=== PATIENT | female | born 1985 | race Two or more races ===

== ENCOUNTER 2023-05-09 19:10 | Outpatient (REF) | payer OTHER, SELFPAY ==
[2023-05-13 13:07] LABS: Age Gdln ACOG Testing Note (.); HPV Aptima Negative (Negative); IGP, Aptima HPV, rfx 16/18,45 Note (.)
== END 2023-05-09 19:11 | disposition home or self-care (01) ==
LOC: LAB 19:10
PROVIDERS: Visit Provider Obstetrics & Gynecology
DX: Z01.419 Encounter for gynecological examination (general) (routine) without abnormal findings (principal)
CPT/HCPCS: 87624; G0145

== ENCOUNTER 2024-12-10 07:50 | Outpatient (REF) | payer BC, SELFPAY ==
--- OUTSIDE RECORDS SUMMARY | 2024-12-10 13:00 | XMS_ITS | Encounter Summary ---
Author Organization [facility] Address [address] [place] [address] Care Team Providers Care Stone Setter Name Role Phone Severiano Barbour MD Primary Care Provider Reason for Visit * Reason Comments Well Women Visit Encounter Details Date Type Department Care Team (Late st Contact Info) Description 12/10/2024 1:00 PM EDT Office Visit [facility] [address] [place] [address] Dayana Middleotn NP [address] [place] [address] Well woman exam with routine gynecological exam; Encounter for screening mammogram for malignant neoplasm of breast Social History Tobacco Use Types Packs/Day Years Used Date Smoking Tobacco: Never Assessed Comments No Sex and Gender Information Value Date Recorded Sex Assigned at Not on file Legal Sex Female 11:47 PM EDT Gender Identity Not on file Sexual Orientation Not on file documented as of this encounter Last Filed Vital Signs Vital Sign Reading Time Taken Comments Blood Pressure - - Pulse - - Temperature - - Respiratory Rate - - Oxygen Saturation - - Inhaled Oxygen Concentration - - Weight 68.3 kg (150 lb 8 oz) 12/10/2024 1:02 PM EDT Height - - Body Mass Index - - documented in this encounter Progress Notes * Dayana Middleton NP - 12/10/2024 1:00 PM EDT Reason for Appointment: Patient ID: Rama Larson is a 39 y.o. female who presents for Well Women Visit Patient presents today for Annual Exam. MEDICATIONS Current Outpatient Medications Medication Instructions buPROPion (WELLBUTRIN) 75 mg, Oral, 2 times daily lisinopril-hydroCHLOROthiazide 10-12.5 MG tablet 1 tablet, Oral, Every morning phentermine (ADIPEX-P) 37.5 mg, Daily before breakfast ALLERGIES Allergies Allergen Reactions Phenergan [Promethazine] Other muscle PROBLEMS Active Ambulatory Problems Diagnosis Date Noted No Active Ambulatory Problems Resolved Ambulatory Problems Diagnosis Date Noted No Resolved Ambulatory Problems Past Medical History: Diagnosis Date Asthma (HCC) Dyspareunia, female Endometriosis Heart palpitations High blood pressure History of endometrial ablation Hx of ovarian cyst Menorrhagia PCOS (polycystic ovarian syndrome) Pelvic pain HISTORY PAST MEDICAL HISTORY SOCIAL HISTORY Past Medical History: Diagnosis Date Asthma (HCC) Dyspareunia, female Endometriosis Heart palpitations High blood pressure History of endometrial ablation Hx of ovarian cyst Menorrhagia PCOS (polycystic ovarian syndrome) Pelvic pain Social History Tobacco Use Smoking status: Not on file Smokeless tobacco: Not on file Substance Use Topics Alcohol use: Not on file Drug use: Not on file FAMILY HISTORY Family History Problem Relation Name Age of Onset Diabetes Mother Hypertension Mother Diabetes Maternal Grandmother Cancer Maternal Grandmother SURGICAL HISTORY Past Surgical History: Procedure Laterality Date ENDOMETRIAL ABLATION PELVIC LAPAROSCOPY TUBAL LIGATION REVIEW OF SYSTEMS Review of Systems: Review of Systems Constitutional: Negative. HENT: Negative. Eyes: Negative. Respiratory: Negative. Cardiovascular: Negative. Gastrointestinal: Negative. Genitourinary: Negative. Musculoskeletal: Negative. Skin: Negative. Neurological: Negative. All other systems reviewed and are negative. Hematological: Negative. Endocrine: Negative. Allergic/Immunologic: Negative. OBJECTIVE Objective: Physical Exam Constitutional: Appearance: Normal appearance. She is well-developed. Cardiovascular: Rate and Rhythm: Normal rate and regular rhythm. Pulmonary: Effort: Pulmonary effort is normal. Breath sounds: Normal breath sounds. Abdominal: General: Bowel sounds are normal. There is no distension. Palpations: Abdomen is soft. Tenderness: There is no abdominal tenderness. There is no guarding or rebound. Musculoskeletal: General: No swelling. Normal range of motion. Right lower leg: No edema. Left lower leg: No edema. Neurological: Mental Status: She is alert and oriented to person, place, and time. Skin: General: Skin is warm and dry. Psychiatric: Mood and Affect: Mood normal. Behavior: Behavior normal. Vitals and nursing note reviewed. Exam conducted with a thread spinner present. Vitals: There is no height or weight on file to calculate BMI. BP: No LMP recorded. Patient has had an ablation. ASSESSMENT & PLAN ICD-10-CM 1. Well woman exam with routine gynecological exam Z01.419 2. Encounter for screening mammogram for malignant neoplasm of breast Z12.31 Annual Exam: Patient presents today for an annual exam. Patient states she is doing well and has no complaints. Pap was obtained without difficulty. Orders Placed This Encounter Procedures Bilateral screening mammogram Follow Up: Patient is to return in one year for annual unless needed otherwise. Documented by Dayana Middleton NP on behalf of: Dayana Middleton NP documented in this encounter Plan of Treatment Scheduled Orders Name Type Priority Associated Diagnoses Orde r Schedule Bilateral screening mammogram Imaging Routine Encounter for screening mammogram for malignant neoplasm of breast Expected: 12/10/2024 (Approximate), Expires: 02/10/2026 THIN PREP TIS PAP AND HR HPV DNA Pathology and Cytology Routine Well woman exam with routine gynecological exam Ordered: 12/10/2024 documented as of this encounter Procedures Procedure Name Priority Date/Time Associated Diagnosis Comments PAP SMEAR Routine 05/09/2023 12:00 AM EST documented in this encounter Results * Pap Smear (05/09/2023 12:00 AM EST) Swab Cervical swab / Unknown us Yvan Rachael DO LAB CYTOLOGY ORDERABLES Final Re sult EXTERNAL LAB documented in this encounter Visit Diagnoses Diagnosis Well woman exam with routine gynecological exam Routine gynecological examination Encounter for screening mammogram for malignant neoplasm of breast documented in this encounter Care Teams Stone Setter Relationship Specialty Start Date End Date Severiano Barbour MD PCP - General Family Medicine 05/09/23 documented as of this encounter
--- OUTSIDE RECORDS SUMMARY | 2024-12-11 07:50 | XMS_ITS | CCD ---
Author Organization [facility] Care Team Providers Care Street Light Repairer Name Role Phone DR KIMANI CANO Admitting Unavailable RACHAEL, DR HARMAN Attending Unavailable REQUEST, NONE LISTED Primary Care Unavaila ble RACHAEL, DR HARMAN Consulting Unavailable KIKE MIRELES Consulting Unavailable RACHAEL, DR HARMAN Admitting Unavailable RACHAEL, DR HARMAN Attending Unavailable MISC, DR MARTINS Primary Care Unavailable RACHAEL, DR HARMAN Admitting Unavailable RACHAEL, DR HARMAN Attending Unavailable MISC, DR MARTINS Primary Care Unavailable RACHAEL, DR HARMAN Admitting Unavailable RACHAEL, DR HARMAN Attending Unavailable REQUEST, DR NONE LISTED Primary Care Unavaila ble RACHAEL, DR HARMAN Consulting Unavailable Cristine, Nasreen Unavailable KIMANI CANO Attending Unavailable ALAMINA, FOLUSO Referring Unavailable ALAMINA, FOLUSO Primary Care Unavailable ALAMINA, FOLUSO Referring Unavailable ALAMINA, FOLUSO Primary Care Unavailable ALAMINA, FOLUSO Referring Unavailable ALAMINA, FOLUSO Primary Care Unavailable ALAMINA, FOLUSO Referring Unavailable ALAMINA, FOLUSO Primary Care Unavailable Alamina DELIVERY HELPER-SURVEY OPERATIONS DIRECTOR, Foluso Primary Care Provider Alamina DELIVERY HELPER-MELISSA, Foluso Primary Care Provider Km [facility] Foluso Primary Care Provider Allergies Allergy Classification Reported Allergen(s) Allergy Type Date of Onset Reaction(s) Facility (2 sources) Levamisole Drug Allergy 09-25-2016 [facility] Repository (3 sources) peanut allergenic extract; Translations: [PEANUT] Drug Allergy 09-25-2016 [facility] Repository (2 sources) Carlton nut Drug allergy (disorder) 02-23-2017 [facility] Repository (20 sources) Promethazine; Translations: [PROMETHAZINE] Drug Allergy 03-27-2016 Other [facility] Repository (15 sources) peanut allergenic extract Drug Allergy 07-16-2019 [facility] Medications Current Medications Medication Drug Class(es) Dates Sig (Normalized) Sig (Original) [id number] 200 actuat albuterol 0.09 mg/actuat metered dose inhaler (15 sources) beta2-Adrenergic Agonist Start: 07-19-2023 take 2 puff(s) by inhalation every six hours as needed for wheezing albuterol (PROVENTIL HFA;VENTOLIN HFA) 90 mcg/actuation inhaler Indications: SOB (shortness of breath) Inhale 2 puffs every 6 (six) hours as needed for wheezing. 18 g 11 07/19/2023 Active Albuterol Sulfat e HFA Not-Taking amoxicillin 875 mg / clavulanate 125 mg oral tablet (1 source) Penicillin-class Antibacterial Start: 03-28-2023 take 1 tablet by mouth every twelve hours Amoxicillin-Pot Clavulanate 875-125 MG 1 tablet Orally every 12 hrs for 10 day(s) Mar, Active Biotin (1 source) Biotin Active buPROPion hydrochloride 75 mg oral tablet (20 sources) Aminoketone Start: 04-16-2023 End: 05-26-2024 take 1 tablet by mouth in the morning buPROPion (Wellbutrin) 75 MG tablet Take 75 mg by mouth in the morning and 75 mg before bedtime. 04/16/2023 Active take 2 tablets by mo ut every twelve hours buPROPion HCl 75 MG 2 tablets Orally Twi ce a day Active ergocalciferol 1.25 mg oral capsule (18 sources) Provitamin D2 Compound Start: 10-09-2022 End: 12-12-2023 take 1 capsule by mouth every week ergocalciferol (DRISDOL) 1,250 mcg (50,000 unit) capsule Indications: Vitamin D deficiency TAKE 1 CAPSULE BY MOUTH ONCE WEEKLY 4 capsule 1 12/12/2023 Active hydroCHLOROthiazide 12.5 mg oral capsule (16 sources) Thiazide Diuretic Start: 10-31-2023 End: 05-26-2024 take 1 capsule by mouth once daily in the morning hydroCHLOROthiazide (MICROZIDE) 12.5 mg capsule Take 1 capsule (12.5 mg total) by mouth every morning. 90 capsule 1 05/27/2024 Active hydroCHLOROthiazide 12.5 mg / lisinopril 10 mg oral tablet (4 sources) Thiazide Diuretic, Angiotensin Converting Enzyme Inhibitor Start: 2023 take 1 tablet by mouth in the morning lisinopril-hydroCHLORO thiazide 10-12.5 MG tablet Take 1 tablet by mouth in the morning. 2023 Active Start: 2023 End: 06-20-2023 take 10-12.5 mg by mouth once in the morning lisinopril-hydroCHLOROthiazide (PRINZIDE,ZESTORETIC) 10-12.5 mg per tablet Indications: Primary hypertension TAKE 1 TABLET BY MOUTH EVERY DAY IN THE MORNING 90 tablet 1 2023 06/20/2023 Discontinued lisinopril 5 mg oral tablet (16 sources) Angiotensin Converting Enzyme Inhibitor Start: 06-20-2023 End: 12-12-2023 take 1 tablet by mouth in the morning lisinopriL (PRINIVIL,ZESTRIL) 5 mg tablet Indications: Primary hypertension Take 1 tablet (5 mg total) by mouth in the morning. 30 tablet 11 12/12/2023 Active nystatin 100 unt/mg topical powder (16 sources) Polyene Antifungal Start: 01-17-2023 End: 12-12-2023 nystatin (MYCOSTATIN) powder Indications: Yeast infection Apply 1 Application topically in the morning and 1 Application at noon and 1 Application in the evening and 1 Application before bedtime. 60 g 12/12/2023 Active omeprazole 20 mg delayed release oral capsule (16 sources) Proton Pump Inhibitor Start: 01-03-2023 take 1 capsule by mouth in the morning omeprazole (PriLOSEC) 20 mg capsule Indications: Gastroesophageal reflux disease without esophagitis TAKE 1 CAPSULE (20 MG TOTAL) BY MOUTH IN THE MORNING 90 capsule 01/03/2023 Active phentermine hydrochloride 37.5 mg oral tablet (16 sources) Sympathomimetic Amine Anorectic Start: 11-10-2023 End: 10-22-2024 take 30-30.9 tablets by mouth once daily before breakfast phentermine (ADIPEX-P) 37.5 mg tablet Indications: Well adult exam , Class 1 obesity due to excess calories with serious comorbidity and body mass index (BMI) of 30.0 to 30.9 in adult Take 1 tablet (37.5 mg total) by mouth every morning before breakfast. 30 tablet 10/22/2024 Active predniSONE 20 mg oral tablet (1 source) Start: 03-28-2023 take 1 tablet by mouth every twelve hours predniSONE 20 MG 1 tablet Orally bid for 5 day(s) Mar, Active Completed/Discontinued Medications Medication Drug Class(es) Dates Sig (Normalized) Sig (Original) dicyclomine hydrochloride 20 mg oral tablet (1 source) Anticholinergic take 1 tablet by mouth every eight hours Dicyclomine HCl 20 MG 1 tablet Orally TID Not-Taking 24 hr phentermine 7.5 mg / topiramate 46 mg extended release oral capsule (10 sources) Sympathomimetic Amine Anorectic Start: 03-14-2023 End: 12-10-2024 take 1 capsule by mouth every twenty-four hours in the morning phentermine-topir amate (QSYMIA) 3.75-23 mg capsule, ER multiphase 24 hr Indications: BMI 26.0-26.9,adult , Primary hypertension , Weight loss due to medication Take 1 each by mouth in the morning. 14 capsule 0 03/14/2023 06/20/2023 Discontinued Start: 03-14-2023 End: 11-06-2023 take 1 capsule by mouth every twenty-four hours in the morning phentermine-topiramate (QSYMIA) 7.5-46 mg capsule, ER multiphase 24 hr Indications: BMI 27.0-27.9,adult , Primary hypertension , Weight loss due to medication Take 1 capsule by mouth in the morning. 30 capsule 2 06/20/2023 11/06/2023 Discontinued microencapsulated potassium chloride 10 meq extended release oral tablet (2 sources) Start: 10-11-2022 End: 10-31-2023 take 1 tablet by mouth once daily in the morning KLOR-CON M10 10 mEq CR tablet Indications: Hypokalemia TAKE 1 TABLET BY MOUTH EVERY DAY IN THE MORNING 30 tablet 1 10/11/2022 10/31/2023 Discontinued sucralfate 1000 mg oral tablet (1 source) Aluminum Complex take 1 tablet by mouth every eight hours Carafate 1 GM 1 TABLET Orally TID Not-Taking Problems Active Problems Problem Classification Problem Date Documented Date Episodic/Chronic Abdominal pain (1 source) Epigastric pain; Translations: [Epigastric pain] Episodic Anxiety disorders (4 sources) Anxiety; Translations: [Anxiety disorder, unspecified] 05-26-2024 Chronic Asthma (1 source) Unspecified asthma, uncomplicated; Translations: [UNSPECIFIED ASTHMA UNCOMPLICATED] Onset: 01-19-2022 Chronic Endometriosis (16 sources) Endometriosis, unspecified; Translations: [Endometriosis (clinical)] Onset: 07-16-2019 07-16-2019 Chronic Esophageal disorders (15 sources) Gastroesophageal reflux disease without esophagitis; Translations: [Gastro-esophageal reflux disease without esophagitis] Onset: 07-16-2019 07-16-2019 Chronic Essential hypertension (4 sources) Essential hypertension; Translations: [Essential (primary) hypertension] 05-26-2024 Chronic Genitourinary symptoms and ill-defined conditions (1 source) Increased frequency of urination; Translations: [Frequency of micturition] 10-22-2024 Episodic Menstrual disorders (4 sources) Excessive and frequent menstruation with regular cycle; Translations: [EXCESS FREQ MENSTRUATION W/REG CYCL] Onset: 01-13-2022 Chronic Nausea and vomiting (1 source) Nausea and vomiting; Translations: [Nausea with vomiting, unspecified] Episodic Nonmalignant breast conditions (5 sources) Unspecified lump in the right breast, unspecified quadrant; Translations: [Solitary cyst of right breast] Onset: 12-25-2023 11-02-2023 Episodic Nutritional deficiencies (4 sources) Vitamin D deficiency, unspecified; Translations: [Vitamin D deficiency] Onset: 11-01-2023 06-20-2023 Chronic Other endocrine disorders (1 source) Polycystic ovarian syndrome; Translations: [POLYCYSTIC OVARIAN SYNDROME] Onset: 01-19-2022 Chronic Other endocrine disorders (15 sources) Polycystic ovary syndrome; Translations: [Polycystic ovarian syndrome] Onset: 07-16-2019 07-16-2019 Chronic Other female genital disorders (1 source) Unspecified dyspareunia; Translations: [UNSPECIFIED DYSPAREUNIA] Onset: 01-19-2022 Chronic Other nutritional; endocrine; and metabolic disorders (5 sources) Obesity caused by energy imbalance; Translations: [Other obesity due to excess calories] 12-12-2023 Chronic Other screening for suspected conditions (not mental disorders or infectious disease) (4 sources) Patient encounter status; Translations: [Encounter for screening mammogram for malignant neoplasm of breast] 11-02-2023 Episodic Other upper respiratory infections (1 source) Acute sinusitis, unspecified Episodic Screening and history of mental health and substance abuse codes (1 source) Personal history of nicotine dependence; Translations: [PERSONAL HISTORY OF NICOTINE DEPEND] Onset: 01-19-2022 Episodic Unclassified (1 source) CONTACT W/AND (SUSP) EXPOS COVID-19; Translations: [CONTACT W/AND (SUSP) EXPOS COVID-19] Onset: 01-12-2022 Past or Other Problems Problem Classification Problem Date Documented Da te Episodic/Chronic Diabetes mellitus without complication (1 source) Hyperglycemia; Translations: [Impaired fasting glucose] 12-12-2023 Episodic Mood disorders (15 sources) Mood disorders Onset: 12-12-2023 Resolved: 09-24-2024 12-12-2023 Mycoses (1 source) Mycosis; Translations: [Candidiasis, unspecified] 12-12-2023 Episodic Other nutritional; endocrine; and metabolic disorders (2 sources) Overweight in adulthood with body mass index of 25 or more but less than 30; Translations: [Body mass index (BMI) 27.0-27.9, adult] 06-20-2023 Episodic Other nutritional; endocrine; and metabolic disorders (1 source) Weight loss; Translations: [Abnormal weight loss] 06-20-2023 Episodic Unclassified (15 sources) Onset: 12-12-2023 Resolved: 09-24-2024 12-12-2023 Unclassified (2 sources) Patient encounter status 09-24-2024 Results Test Name Value Interpretation Reference Range Facility POCT urinalysis dipstick onl yon 10-22-2024 External Poct Urine Bilirubin Negative [facility] External Poct Urine Blood 1+ [facility] External Poct Urine Character clear [facility] External Poct Urine Color light yellow [facility] External Poct Urine Glucose Negative [facility] External Poct Urine Ketones Negative [facility] External Poct Urine Leukocyte Esterase Trace [facility] External Poct Urine Nitrite Negative [facility] External Poct Urine Ph 6 [facility] External Poct Urine Protein Negative [facility] External Poct Urine Specific [place] 1.02 [facility] External Poct Urine Urobilinogen 0.2 [facility] Interpretation and review of laboratory results Abnormal [facility] MAMM DIAGNOSTIC BILATERAL W CADon 12-25-2023 MAMM DIAGNOSTIC BILATERAL W CAD MAMM DIAGNOSTIC BILATERAL W CAD EXAM: MAMM DIAGNOSTIC BILATERAL W CAD, US BREAST RT LIMITED, 12/25/2023 2:58 PM CLINICAL INDICATIONS: Cyst of right breast, right breast pain. COMPARISON: 10/24/2022 mammogram and right breast ultrasound TECHNIQUE: Bilateral digital tomosynthesis MLO and CC views of the breasts were obtained, with creation of synthetic 2D views. Computer aided detection was utilized. In addition, targeted ultrasound towards the multiple areas of pain in the right breast performed. FINDINGS: The breasts are heterogeneously dense, which may obscure small masses. In the right breast; o'clock position, a 1 cm nodule is stable on the mammogram. On targeted ultrasound of this region corresponding to an area of pain is a 1 cm circumscribed hypoechoic nodule with minimal adjacent color flow vascularity. Elsewhere on the mammogram, no suspicious abnormalities are seen. At the right breast 10:00 position 10 cm from the nipple, corresponding to one of the areas of pain, an incidental 4 mm simple cyst present. In the right breast axillary region, corresponding to an area of pain, sonographically normal-appearing lymph node without cortical thickening. There are no suspicious masses, calcifications, or areas of architectural distortions. IMPRESSION: * No mammographic or targeted evidence of malignancy. * There are multiple benign appearing areas in the right breast. Given multiple areas of pain, consider MBI for further imaging, especially given the dense breast tissue. BI-RADS: BI-RADS 2 - Benign Recommendation: Routine screening mammogram in 1 year As a separate recommendation, due to the density and/or complexity of breast tissue on mammography, Molecular Breast Imaging is recommended as a supplement to annual screening mammography. MBI can be used to help detect mammographically occult cancers in dense breasts. Patient was given the results before leaving the department. Finalized by William Joseph MD on 12/25/2023 3:50 PM 2 c MAMM 1 YR Normal [facility] US BREAST RT LIMITEDon 12-24 US BREAST RT LIMITED US BREAST RT LIMITE D EXAM: MAMM DIAGNOSTIC BILATERAL W CAD, US BREAST RT LIMITED, 12/25/2023 2:58 PM CLINICAL INDICATIONS: Cyst of right breast, right breast pain. COMPARISON: 10/24/2022 mammogram and right breast ultrasound TECHNIQUE: Bilateral digital tomosynthesis MLO and CC views of the breasts were obtained, with creation of synthetic 2D views. Computer aided detection was utilized. In addition, targeted ultrasound towards the multiple areas of pain in the right breast performed. FINDINGS: The breasts are heterogeneously dense, which may obscure small masses. In the right breast; o'clock position, a 1 cm nodule is stable on the mammogram. On targeted ultrasound of this region corresponding to an area of pain is a 1 cm circumscribed hypoechoic nodule with minimal adjacent color flow vascularity. Elsewhere on the mammogram, no suspicious abnormalities are seen. At the right breast 10:00 position 10 cm from the nipple, corresponding to one of the areas of pain, an incidental 4 mm simple cyst present. In the right breast axillary region, corresponding to an area of pain, sonographically normal-appearing lymph node without cortical thickening. There are no suspicious masses, calcifications, or areas of architectural distortions. IMPRESSION: * No mammographic or targeted evidence of malignancy. * There are multiple benign appearing areas in the right breast. Given multiple areas of pain, consider MBI for further imaging, especially given the dense breast tissue. BI-RADS: BI-RADS 2 - Benign Recommendation: Routine screening mammogram in 1 year As a separate recommendation, due to the density and/or complexity of breast tissue on mammography, Molecular Breast Imaging is recommended as a supplement to annual screening mammography. MBI can be used to help detect mammographically occult cancers in dense breasts. Patient was given the results before leaving the department. Finalized by William Joseph MD on 12/25/2023 3:50 PM 2 c MAMM 1 YR Normal [facility] POCT Hemoglobin [id number] B y: Scott Khan on 12-12-2023 HbA1c (Bld) [Mass fraction] 5.4 g/dL 4 - 7 g/dL [facility] Interpretation and review of laboratory results Normal [facility] CBC AND AUTO DIFFon 11-01-19 ABSOLUTE BASOPHIL 0.1 X10E9/L Normal 0.0-0.2 [facility] Comment on above: Performed By: #### C BCA, CMP, 71265-9, , TSHR, 45570-7 #### [facility] ([id number]) [address], [address] [place] [address] ABSOLUTE NEUTROPHIL 4.9 X10E9/L Normal 1.5-6.6 [facility] Comment on above: Performed By: #### C BCA, CMP, 85370-9, , TSHR, 89220-6 #### [facility] ([id number]) [address], [address] [place] [address] Basophils/100 WBC (Bld) 0.6 % Normal [facility] Comment on above: Performed By: #### C BCA, CMP, , , TSHR, 90538-2 #### [facility] ([id number]) [address], [address] [place] [address] Eosinophils (Bld) [#/Vol] 0.3 10*3/uL Normal 0.0-0.4 [facility] Comment on above: Performed By: #### C BCA, CMP, , , TSHR, 10017-3 #### [facility] ([id number]) [address], [address] [place] [address] Eosinophils/100 WBC (Bld) 3.4 % Normal [facility] Comment on above: Performed By: #### C BCA, CMP, 41813-5, , TSHR, 80280-5 #### [facility] ([id number]) [address], [address] [place] [address] Erythrocyte distribution width (RBC) [Ratio] 13.1 % Normal 11.5-15.0 [facility] Comment on above: Performed By: #### C BCA, CMP, 94140-3, , TSHR, 14455-0 #### [facility] ([id number]) [address], [address] [place] [address] Hematocrit (Bld) [Volume fraction] 38.7 % Normal 35-47 [facility] Comment on above: Performed By: #### C BCA, CMP, , , TSHR, 64188-5 #### [facility] ([id number]) [address], [address] [place] [address] Hemoglobin (Bld) [Mass/Vol] 13.5 g/dL Normal 11.7-15.5 [facility] Comment on above: Performed By: #### C BCA, CMP, , , TSHR, 86166-4 #### [facility] ([id number]) [address] [address] [place] [address] Lymphocytes (Bld) [#/Vol] 2.5 10*3/uL Normal 1.0-3.5 [facility] Comment on above: Performed By: #### C BCA, CMP, , , TSHR, 62510-5 #### [facility] ([id number]) [address] [address] [place] [address] Lymphocytes/100 WBC (Bld) 29.9 % Normal [facility] Comment on above: Performed By: #### C BCA, CMP, , , TSHR, 44908-9 #### [facility] ([id number]) [address] [address] [place] [address] MCH (RBC) [Entitic mass] 31.6 pg Normal 27-34 [facility] Comment on above: Performed By: #### C BCA, CMP, , , TSHR, 23807-0 #### [facility] ([id number]) [address], [address] [place] [address] MCHC (RBC) [Mass/Vol] 34.8 g/dL Normal 32-36 [facility] Comment on above: Performed By: #### C BCA, CMP, 93564-2, 76639-2, TSHR, 11608-4 #### [facility] ([id number]) [address], [address] [place] [address] MCV (RBC) [Entitic vol] 91 fL Normal 80-100 [facility] Comment on above: Performed By: #### C BCA, CMP, 22793-2, , TSHR, 75956-0 #### [facility] ([id number]) [address], [address] [place] [address] Monocytes (Bld) [#/Vol] 0.6 10*3/uL Normal 0-0.9 [facility] Comment on above: Performed By: #### C BCA, CMP, 46232-0, , TSHR, 35398-9 #### [facility] ([id number]) [address], [address] [place] [address] Monocytes/100 WBC (Bld) 7.3 % Normal [facility] Comment on above: Performed By: #### C BCA, CMP, 68792-0, , TSHR, 86653-8 #### [facility] ([id number]) [address], [address] [place] [address] Neutrophils/100 WBC (Bld) 58.8 % Normal [facility] Comment on above: Performed By: #### C BCA, CMP, 97463-3, , TSHR, 49871-3 #### [facility] ([id number]) [address], [address] [place] [address] Platelet mean volume (Bld) [Entitic vol] 8.2 fL Normal 7-12 [facility] Comment on above: Performed By: #### C BCA, CMP, 39638-7, 60613-8, TSHR, 44285-8 #### [facility] ([id number]) [address], [address] [place] [address] Platelets (Bld) [#/Vol] 321 10*3/uL Normal 150-450 [facility] Comment on above: Performed By: #### C BCA, CMP, 32812-4, 16751-5, TSHR, 34615-1 #### [facility] ([id number]) [address], [address] [place] [address] RBC COUNT 4.25 X10E12/L Normal 3.80-5.20 [facility] Comment on above: Performed By: #### C BCA, CMP, 50510-3, 24512-8, TSHR, 63072-1 #### [facility] ([id number]) [address], [address] [place] [address] WBC (Bld) [#/Vol] 8.3 10*3/uL Normal 4.0-11.0 [facility] Comment on above: Performed By: #### C BCA, CMP, 30559-5, 28508-6, TSHR, 42137-3 #### [facility] ([id number]) [address], [address] [place] [address] COMPREHENSIVE METABOLIC PANE Hemanth 11-01-2023 Albumin [Mass/Vol] 4.2 g/dL Normal 3.2-5.3 [facility] Comment on above: Performed By: #### C BCA, CMP, 73111-4, 29718-9, TSHR, 56656-0 #### [facility] ([id number]) [address], [address] [place] [address] ALP [Catalytic activity/Vol] 59 U/L Normal 39-130 [facility] Comment on above: Performed By: #### C BCA, CMP, 26975-7, 44089-7, TSHR, 04706-2 #### [facility] ([id number]) [address], [address] [place] [address] ALT [Catalytic activity/Vol] 24 U/L Normal 0-31 [facility] Comment on above: Performed By: #### C BCA, CMP, 51786-4, 88628-3, TSHR, 91668-8 #### [facility] ([id number]) [address], [address] [place] [address] Anion gap [Moles/Vol] 8 mmol/L Normal 5-15 [facility] Comment on above: Performed By: #### C BCA, CMP, 90251-2, , TSHR, 20075-7 #### [facility] ([id number]) [address], [address] [place] [address] AST [Catalytic activity/Vol] 18 U/L Normal 0-41 [facility] Comment on above: Performed By: #### C BCA, CMP, 84267-2, , TSHR, 96525-8 #### [facility] ([id number]) [address], [address] [place] [address] Bilirubin [Mass/Vol] 0.6 mg/dL Normal 0.3-1.2 [facility] Comment on above: Performed By: #### C BCA, CMP, 98686-8, , TSHR, 96849-2 #### [facility] ([id number]) [address], [address] [place] [address] Calcium [Mass/Vol] 9.1 mg/dL Normal 8.5-10.5 [facility] Comment on above: Performed By: #### C BCA, CMP, 13369-7, 59116-2, TSHR, 22641-5 #### [facility] ([id number]) [address], [address] [place] [address] Chloride [Moles/Vol] 107 mmol/L Normal 98-109 [facility] Comment on above: Performed By: #### C BCA, CMP, 61546-3, , TSHR, 94503-5 #### [facility] ([id number]) [address], [address] [place] [address] CO2 [Moles/Vol] 24 mmol/L Normal 22-32 [facility] Comment on above: Performed By: #### C BCA, CMP, 91866-7, , TSHR, 73786-8 #### [facility] ([id number]) [address], [address] [place] [address] Creatinine [Mass/Vol] 0.63 mg/dL Normal 0.40-1.00 [facility] Comment on above: Result Comment: METH OD TRACEABLE TO IDMS STANDARD Performed By: #### C BCA, CMP, , , TSHR, 37999-3 #### [facility] ([id number]) [address], [address] [place] [address] eGFR (CKD-EPI) NON-RACE DEPENDENT >90 Normal >59 [facility] Comment on above: Result Comment: Reported eGFR is based on the CKD-EPI 2020 equation that does not use a race coefficient. Performed By: #### C BCA, CMP, , , TSHR, 44220-3 #### [facility] ([id number]) [address], [address] [place] [address] Glucose [Mass/Vol] 110 mg/dL High 65-99 [facility] Comment on above: Performed By: #### C BCA, CMP, , , TSHR, 44046-6 #### [facility] ([id number]) [address], [address] [place] [address] Potassium [Moles/Vol] 3.9 mmol/L Normal 3.5-5.0 [facility] Comment on above: Performed By: #### C BCA, CMP, 50428-8, 59128-6, TSHR, 84688-4 #### [facility] ([id number]) [address], [address] [place] [address] Protein [Mass/Vol] 6.8 g/dL Normal 6.0-8.0 [facility] Comment on above: Performed By: #### C BCA, CMP, 84375-3, 86481-5, TSHR, 45308-5 #### [facility] ([id number]) [address], [address] [place] [address] Sodium [Moles/Vol] 139 mmol/L Normal 134-146 [facility] Comment on above: Performed By: #### C BCA, CMP, 71145-4, 43024-0, TSHR, 09917-2 #### [facility] ([id number]) [address], [address] [place] [address] Urea nitrogen [Mass/Vol] 20 mg/dL Normal 5-23 [facility] Comment on above: Performed By: #### C BCA, CMP, 70252-2, 84239-3, TSHR, 52275-0 #### [facility] ([id number]) [address], [address] [place] [address] Lipid 1996 panelon 4 Cholesterol [Mass/Vol] 180 mg/dL Normal 150-200 [facility] Comment on above: Performed By: #### C BCA, CMP, 33849-9, 56403-1, TSHR, 43133-4 #### [facility] ([id number]) [address], [address] [place] [address] Cholesterol in HDL [Mass/Vol] 58 mg/dL Normal >39 [facility] Comment on above: Result Comment: HDL <40 mg/dL - High Risk HDL > or = 40mg/dL- Desirable HDL >60 mg/dL - Negative Risk Performed By: #### C BCA, CMP, 80572-3, 42495-1, TSHR, 43730-7 #### [facility] ([id number]) [address], [address] [place] [address] Cholesterol in LDL [Mass/Vol] 106 mg/dL Normal <130 [facility] Comment on above: Result Comment: LDL <100 mg/dL - Desirable LDL >160 mg/dL - High Risk Performed By: #### C BCA, CMP, 57792-1, 70470-4, TSHR, 76811-5 #### [facility] ([id number]) [address], [address] [place] [address] Cholesterol in VLDL [Mass/Vol] 16 mg/dL Normal 0-30 [facility] Comment on above: Performed By: #### C BCA, CMP, 35651-4, 14511-2, TSHR, 56327-3 #### [facility] ([id number]) [address], [address] [place] [address] CHOLESTEROL:HDL 3.1 Normal 1.0-5.0 [facility] Comment on above: Performed By: #### C BCA, CMP, 71882-8, 39338-9, TSHR, 03778-2 #### [facility] ([id number]) [address], [address] [place] [address] Triglyceride [Mass/Vol] 80 mg/dL Normal 27-150 [facility] Comment on above: Performed By: #### C BCA, CMP, 40384-6, 77972-1, TSHR, 30431-1 #### [facility] ([id number]) [address], [address] [place] [address] MAGNESIUMon 11-01-2023 Magnesium [Mass/Vol] 1.8 mg/dL Normal 1.8-2.6 [facility] Comment on above: Performed By: #### C LILLY, BERT, 45931-9, 94631-3, TSHR, 04258-2 #### [facility] ([id number]) [address] [place] [address] TSH WITH REFLEXon 11-01-2023 TSH 2.65 uIU/mL Normal 0.49-4.67 [facility] Comment on above: Performed By: #### C LILLY, BERT, 95063-7, , TSHR, 22725-4 #### [facility] ([id number]) [address] [place] [address] Vitamin D+Metabolites [Mass/ Vol]on 11-01-2023 VITAMIN D 25 HYD TOT 28.0 ng/mL Low 30-100 [facility] Comment on above: Result Comment: Vitamin D status 25 [place] Vitamin D Deficiency <20 ng/mL Insufficiency 20-29 ng/mL Sufficiency 30-100 ng/mL Toxicity >100 ng/mL NOTE: A pediatric reference range has not been established by the c d stripper of this kit. The [place] [employer] recommends a Vitamin D level of = or >20ng/mL in infants and children. Performed By: #### C LILLY, BERT, 64680-9, 35653-4, TSHR, 62687-0 #### [facility] ([id number]) [address], [address] [place] [address] Cytology Cervical or vaginal smear or scraping studyon 05-09-2023 [facility] CBC AUTO DIFFon 01-13-2022 BASO # 0.0 103/ul Normal 0.0-0.1 [facility] Comment on above: Performed By: #### C BC #### [facility] [address] [place] [address] Dr. Domingo Santos Basophils/100 WBC (Bld) 0.6 % Normal 0.2-2.0 [facility] Comment on above: Performed By: #### C BC #### [facility] [address] [place] [address] Dr. Domingo Santos EO # 0.2 103/ul Normal 0.0-0.7 [facility] Comment on above: Performed By: #### C BC #### [facility] [address] [place] [address] Dr. Domingo Santos Eosinophils/100 WBC (Bld) 2.7 % Normal 0.9-7.0 [facility] Comment on above: Performed By: #### C BC #### [facility] [address] [place] [address] Dr. Domingo Santos Erythrocyte distribution width (RBC) [Ratio] 12.2 % Normal 11.0-15.0 [facility] Comment on above: Performed By: #### C BC #### [facility] [address] [place] [address] Dr. Domingo Santos Hematocrit (Bld) [Volume fraction] 37.1 % Normal 36.0-48.0 [facility] Comment on above: Performed By: #### C BC #### [facility] [address] [place] [address] Dr. Domingo Sanots Hemoglobin (Bld) [Mass/Vol] 12.7 g/dL Normal 12.0-16.0 [facility] Comment on above: Performed By: #### C BC #### [facility] [address] [place] [address] Dr. Domingo Santos IG # 0.02 10e3/ul Normal 0.00-0.03 [facility] Comment on above: Performed By: #### C BC #### [facility] [address] [place] [address] Dr. Domingo Santos IG % 0.3 % Normal 0.0-0.5 [facility] Comment on above: Performed By: #### C BC #### [facility] [address] [place] [address] Dr. Domingo Santos LYMPH # 2.1 103/ul Normal 1.2-3.8 [facility] Comment on above: Performed By: #### C BC #### [facility] [address] [place] [address] Dr. Domingo Santos Lymphocytes/100 WBC (Bld) 30.3 % Normal 20.5-60.0 [facility] Comment on above: Performed By: #### C BC #### [facility] [address] [place] [address] Dr. Domingo Santos MANUAL DIFF REQ NO Normal [facility] Comment on above: Performed By: #### C BC #### [facility] [address] [place] [address] Dr. Domingo Santos MCH (RBC) [Entitic mass] 30.7 pg Normal 26.7-34.0 [facility] Comment on above: Performed By: #### C BC #### [facility] [address] [place] [address] Dr. Domingo Santos MCHC (RBC) [Mass/Vol] 34.2 g/dL Normal 29.9-35.2 [facility] Comment on above: Performed By: #### C BC #### [facility] [address] [place] [address] Dr. Domingo Santos MCV (RBC) [Entitic vol] 89.6 fL Normal 81.0-99.0 [facility] Comment on above: Performed By: #### C BC #### [facility] [address] [place] [address] Dr. Domingo Santos MONO # 0.5 103/ul Normal 0.3-0.8 [facility] Comment on above: Performed By: #### C BC #### [facility] [address] [place] [address] Dr. Domingo Santos Monocytes/100 WBC (Bld) 7.1 % Normal 1.7-12.0 [facility] Comment on above: Performed By: #### C BC #### [facility] [address] [place] [address] Dr. Domingo Santos NEUT # 4.2 103/ul Normal 1.4-6.5 [facility] Comment on above: Performed By: #### C BC #### [facility] [address] [place] [address] Dr. Domingo Santos Neutrophils/100 WBC (Bld) 59.0 % Normal 43.0-75.0 [facility] Comment on above: Performed By: #### C BC #### [facility] [address] [place] [address] Dr. Domingo Santos Platelet mean volume (Bld) [Entitic vol] 9.7 fL Normal 9.5-13.5 [facility] Comment on above: Performed By: #### C BC #### [facility] [address] [place] [address] Dr. Domingo Santos PLT 286 103/ul Normal 150-450 [facility] Comment on above: Performed By: #### C BC #### [facility] [address] [place] [address] Dr. Domingo Santos RBC 4.14 106/ul Critically low 4.20-5.40 [facility] Comment on above: Performed By: #### C BC #### [facility] [address] [place] [address] Dr. Domingo Santos WBC 7.1 103/ul Normal 4.0-11.0 [facility] Comment on above: Performed By: #### C BC #### [facility] [address] [place] [address] Dr. Domingo Santos PREG HCG QUALon 01-13-2022 , QUAL Negative Normal NEGATIVE [facility] Comment on above: Performed By: #### P REG #### [facility] [address] [place] [address] Dr. Domingo Santos Covid-19 PCR (CVDTB)on 12-14 SARS-CoV-2 (COVID-19) RNA KETAN+probe Ql (Unsp spec) Not detected Normal NOT DETECTED [facility] Comment on above: Result Comment: This test is not yet approved or cleared by the [place] FDA. When there are no FDA-approved or cleared tests available, and other criteria are met, FDA can make tests available under an emergency access mechanism called an Emergency Use Authorization (EUA). The EUA for this test is supported by the Television [employer] of Health and Human Service's (HHS's) declaration that circumstances exist to justify the emergency use of in vitro diagnostics for the detection and/or diagnosis of the virus that causes COVID-19. This EUA will remain in effect (meaning this test can be used) for the duration of the COVID-19 declaration justifying emergency of IVDs, unless it is terminated or revoked by FDA (after which the test may no longer be used). When diagnostic testing is negative, the possibility of a false negative should be considered in the context of a patient's recent exposures and the presence of clinical signs and symptoms consistent with SARS-CoV-2. Performed By: #### [facility] #### [facility] [address] [place] [address] Dr. Domingo Santos Vital Signs Date Time Vital Sign Value Performing Clinician Facility 12-10-2024 13:[id number] Body weight 68.27 kg Dayana Middleton NP Work Phone: [facility] 10-22-2024 10:33-0400 Body height 152.4 cm Jobstera DELIVERY HELPER-SURVEY OPERATIONS DIRECTOR [facility] 10-22-2024 10:33-0400 Body mass index (BMI) [Ratio] 29.29 kg/m2 [employer] DELIVERY HELPER-SURVEY OPERATIONS DIRECTOR [facility] 10-22-2024 10:33-0400 Body weight 68.04 kg Jobstera DELIVERY HELPER-SURVEY OPERATIONS DIRECTOR [facility] 10-22-2024 10:33-0400 Diastolic blood pressure 78 mm[Hg] [employer] DELIVERY HELPER-SURVEY OPERATIONS DIRECTOR [facility] 10-22-2024 10:33-0400 Heart rate 102 /min Foluso Alamina DELIVERY HELPER-SURVEY OPERATIONS DIRECTOR Work Phone: [facility] [employer] [facility] 10-22-2024 10:33-0400 SaO2% (BldA) [Mass fraction] 96 % Foluso Alamina DELIVERY HELPER-SURVEY OPERATIONS DIRECTOR Work Phone: [facility] 10-22-2024 10:33-0400 Systolic blood pressure 124 mm[Hg] Foluso Alamina DELIVERY HELPER-SURVEY OPERATIONS DIRECTOR Work Phone: [facility] 09-24-2024 09:11-0400 Body height 152.4 cm Foluso Alamina DELIVERY HELPER-SURVEY OPERATIONS DIRECTOR Work Phone: [facility] 09-24-2024 09:11-0400 Body mass index (BMI) [Ratio] 31.05 kg/m2 Foluso Alamina DELIVERY HELPER-SURVEY OPERATIONS DIRECTOR Work Phone: [facility] 09-24-2024 09:11-0400 Body weight 72.12 kg Foluso Alamina DELIVERY HELPER-SURVEY OPERATIONS DIRECTOR Work Phone: [facility] 09-24-2024 09:11-0400 Diastolic blood pressure 82 mm[Hg] Foluso Alamina DELIVERY HELPER-SURVEY OPERATIONS DIRECTOR Work Phone: [facility] 09-24-2024 09:11-0400 Heart rate 82 /min Foluso Alamina DELIVERY HELPER-SURVEY OPERATIONS DIRECTOR Work Phone: [facility] 09-24-2024 09:11-0400 SaO2% (BldA) [Mass fraction] 98 % Foluso Alamina DELIVERY HELPER-SURVEY OPERATIONS DIRECTOR Work Phone: [facility] 09-24-2024 09:11-0400 Systolic blood pressure 118 mm[Hg] Foluso Alamina DELIVERY HELPER-SURVEY OPERATIONS DIRECTOR Work Phone: [facility] 12-12-2023 15:53-0400 Body height 152.4 cm Foluso Alamina DELIVERY HELPER-SURVEY OPERATIONS DIRECTOR Work Phone: [facility] 12-12-2023 15:53-0400 Body mass index (BMI) [Ratio] 29.29 kg/m2 Foluso Alamina DELIVERY HELPER-SURVEY OPERATIONS DIRECTOR Work Phone: [facility] 12-12-2023 15:53-0400 Body weight 68.04 kg Foluso Alamina DELIVERY HELPER-SURVEY OPERATIONS DIRECTOR Work Phone: [facility] 12-12-2023 15:53-0400 Diastolic blood pressure 98 mm[Hg] Foluso Alamina DELIVERY HELPER-SURVEY OPERATIONS DIRECTOR Work Phone: [facility] 12-12-2023 15:53-0400 Heart rate 100 /min Foluso Alamina DELIVERY HELPER-SURVEY OPERATIONS DIRECTOR Work Phone: [facility] 12-12-2023 15:53-0400 Systolic blood pressure 130 mm[Hg] Foluso Alamina DELIVERY HELPER-SURVEY OPERATIONS DIRECTOR Work Phone: [facility] 10-31-2023 16:36-0400 Body height 152.4 cm Foluso Alamina DELIVERY HELPER-SURVEY OPERATIONS DIRECTOR Work Phone: [facility] 10-31-2023 16:36-0400 Body mass index (BMI) [Ratio] 30.08 kg/m2 Foluso Alamina DELIVERY HELPER-SURVEY OPERATIONS DIRECTOR Work Phone: [facility] 10-31-2023 16:36-0400 Body weight 69.85 kg Foluso Alamina DELIVERY HELPER-SURVEY OPERATIONS DIRECTOR Work Phone: [facility] 10-31-2023 16:36-0400 Diastolic blood pressure 94 mm[Hg] Foluso Alamina DELIVERY HELPER-SURVEY OPERATIONS DIRECTOR Work Phone: [facility] 10-31-2023 16:36-0400 Heart rate 84 /min Foluso Alamina DELIVERY HELPER-SURVEY OPERATIONS DIRECTOR Work Phone: [facility] 10-31-2023 16:36-0400 Systolic blood pressure 110 mm[Hg] Foluso Alamina DELIVERY HELPER-SURVEY OPERATIONS DIRECTOR Work Phone: [facility] 06-20-2023 16:11-0500 Body height 152.4 cm Foluso Alamina DELIVERY HELPER-SURVEY OPERATIONS DIRECTOR Work Phone[facility] 06-20-2023 16:11-0500 Body mass index (BMI) [Ratio] 27.3 kg/m2 Foluso Alamina DELIVERY HELPER-SURVEY OPERATIONS DIRECTOR Work Phone[facility] 06-20-2023 16:11-0500 Body weight 63.41 kg Foluso Alamina DELIVERY HELPER-SURVEY OPERATIONS DIRECTOR Work Phone: [facility] 06-20-2023 16:11-0500 Diastolic blood pressure 80 mm[Hg] Foluso Alamina DELIVERY HELPER-SURVEY OPERATIONS DIRECTOR Work Phone: [facility] 06-20-2023 16:11-0500 Systolic blood pressure 124 mm[Hg] Foluso Alamina DELIVERY HELPER-SURVEY OPERATIONS DIRECTOR [facility] Phone[facility] 03-28-2023 09:25-0500 Body height 152.4 cm Nasreen Colunga Other [employer] Other 03-28-2023 09:25-0500 Body mass index (BMI) [Ratio] 27.53 kg/m2 Nasreen Colunga Other [employer] Other 03-28-2023 09:25-0500 Body temperature 99 [degF] Nasreen Colunga Other [employer] Other 03-28-2023 09:25-0500 Body weight 63.96 kg Nasreen Cristine Other [employer] Other 03-28-2023 09:25-0500 Diastolic blood pressure 52 mm[Hg] Nasreen Colunga Other [employer] Other 03-28-2023 09:25-0500 Respiratory rate 19 /min Nasreen Colunga Other [employer] Other 03-28-2023 09:25-0500 SaO2% (BldA) [Mass fraction] 98 % Nasreen Colunga Other [employer] Other 03-28-2023 09:25-0500 Systolic blood pressure 113 mm[Hg] Nasreen Colunga Other [employer] Other Encounters Encounter Date Encounter Type Care Provider Facility Start: 12-10-2024 End: 12-10-2024 Bamboo flowsheet Dayana Middleton EXTRUSION DIE COORDINATOR Work Phone: [facility] Start: 12-10-2024 End: 12-10-2024 [employer] Wireless Safetyheet Dayana Middleton EXTRUSION DIE COORDINATOR Work Phone: [facility] Start: 12-10-2024 End: 12-10-2024 Patient encounter procedure Dayana Middleton EXTRUSION DIE COORDINATOR Work Phone: [facility] Start: 12-10-2024 End: 12-10-2024 Periodic preventive med est patient 40-64yrs Dayana Middleton EXTRUSION DIE COORDINATOR Work Phone: [facility] Comment on above: Well woman exam with routine gynecological exam; Encounter for screening mammogram for malignant neoplasm of breast Start: 10-22-2024 End: 10-22-2024 Clinical Support Tai Barbour APRN-SURVEY OPERATIONS DIRECTOR Work Phone: [facility] Comment on above: Frequent urination ( Primary Dx); Well adult exam; Class 1 obesity due to excess calories with serious comorbidity and body mass index (BMI) of 30.0 to 30.9 in adult Start: 10-22-2024 End: 10-22-2024 Patient encounter status Tai Barbour APRN-SURVEY OPERATIONS DIRECTOR [facility] [employer] [facility] Start: 09-24-2024 End: 09-24-2024 Patient encounter status Foluso Alamina DELIVERY HELPER-SURVEY OPERATIONS DIRECTOR Work Phone: [facility] Start: 09-24-2024 End: 09-24-2024 Periodic preventive med est patient 40-64yrs Foluso Alamina DELIVERY HELPER-SURVEY OPERATIONS DIRECTOR Work Phone: [facility] Comment on above: Well adult exam (Noelle erwin Dx); Encounter for screening for cardiovascular disorders; Class 1 obesity due to excess calories with serious comorbidity and body mass index (BMI) of 30.0 to 30.9 in adult Start: 05-26-2024 End: 05-27-2024 Refill Foluso Alamina DELIVERY HELPER-SURVEY OPERATIONS DIRECTOR Work Phone: [facility] Comment on above: Primary hypertension Anxiety Start: 12-26-2023 End: 12-26-2023 Orders Only Foluso Alamina DELIVERY HELPER-SURVEY OPERATIONS DIRECTOR Work Phone: [facility] Comment on above: Dense breast tissue (Primary Dx) Start: 12-25-2023 End: 12-25-2023 ambulatory [facility] Start: 12-25-2023 End: 12-26-2023 ambulatory [facility] Start: 12-12-2023 End: 12-12-2023 Office outpatient visit 25 minutes Foluso Alamina DELIVERY HELPER-SURVEY OPERATIONS DIRECTOR Work Phone: [facility] Comment on above: Primary hypertension (Primary Dx); Vitamin D deficiency; Yeast infection; Healthcare maintenance; Class 1 obesity due to excess calories with serious comorbidity and body mass index (BMI) of 30.0 to 30.9 in adult; Elevated fasting blood sugar Start: 12-12-2023 End: 12-12-2023 Patient encounter status Foluso Alamina DELIVERY HELPER-SURVEY OPERATIONS DIRECTOR Work Phone: [facility] Work Phone: Start: 12-11-2023 End: 12-11-2023 Telephone encounter Frank Mcfarland CMA [facility] Start: 11-28-2023 End: 11-28-2023 Refill Foluso Alamina DELIVERY HELPER-SURVEY OPERATIONS DIRECTOR Work Phone: [facility] Start: 11-06-2023 End: 11-07-2023 Refill Foluso Alamina DELIVERY HELPER-SURVEY OPERATIONS DIRECTOR Work Phone: [facility] Comment on above: Anxiety Start: 11-02-2023 End: 11-02-2023 Refill Brooklynn Sultana CMA [facility] Comment on above: Encounter for screen ing mammogram for malignant neoplasm of breast (Primary Dx); Anxiety; Mass of right breast, unspecified quadrant Start: 11-01-2023 End: 11-01-2023 ambulatory [facility] Start: 11-01-2023 Encounter for genera l adult medical examination without abnormal findings [facility] Start: 10-31-2023 End: 10-31-2023 Office outpatient visit 25 minutes Foluso Alamina DELIVERY HELPER-SURVEY OPERATIONS DIRECTOR Work Phone: [facility] Comment on above: Primary hypertension (Primary Dx); Vitamin D deficiency; BMI 26.0-26.9,adult; Anxiety Start: 06-20-2023 End: 06-20-2023 Office outpatient visit 25 minutes Foluso Alamina DELIVERY HELPER-SURVEY OPERATIONS DIRECTOR Work Phone: [facility] Comment on above: Healthcare maintenan ce (Primary Dx); BMI 27.0-27.9,adult; Primary hypertension; Weight loss due to medication; Vitamin D deficiency Start: 06-20-2023 End: 06-20-2023 Patient encounter status Foluso Alamina DELIVERY HELPER-SURVEY OPERATIONS DIRECTOR Work Phone: [facility] [employer] Start: 05-09-2023 End: 05-09-2023 ambulatory KIMANI CANO Not Available Start: 03-28-2023 End: 03-28-2023 ambulatory Nasreen Colunga Other [employer] Other Start: 03-28-2023 Office outpatient ne w 10 minutes Nasreen Colunga [facility] Start: 01-13-2022 End: 01-13-[address] KIMANI CANO Facility:[facility] Start: 01-12-2022 Encounter for preprocedural laboratory examination DR KIMANI CANO [facility] Start: 01-11-2022 End: 01-12-[address] KIMANI CANO Facility:[facility] Start: 01-11-2022 End: 01-12-2022 Encounter for preprocedural laboratory examination DR KIMANI CANO Facility:[facility] Start: 01-10-[address] KIMANI CANO Facility :[facility] Start: 11-24-[address] KIMANI CANO Facility :[facility] Procedures Date Procedure Procedure Detail Performing Clinician Start: 10-22-2024 Urnls dip stick/tabl et rgnt non-auto w/o micrscp Foluso Alamina DELIVERY HELPER-SURVEY OPERATIONS DIRECTOR Work Phone: Start: 09-24-2024 Adult depression scr eening assessment Foluso Alamina DELIVERY HELPER-SURVEY OPERATIONS DIRECTOR Work Phone: Start: 12-25-2023 Mammography Dayana cox EXTRUSION DIE COORDINATOR Work Phone: Start: 12-12-2023 Hemoglobin glycosyla dean a1c Foluso Alamina DELIVERY HELPER-SURVEY OPERATIONS DIRECTOR Work Phone: Start: 12-12-2023 Adult depression scr eening assessment Foluso Alamina DELIVERY HELPER-SURVEY OPERATIONS DIRECTOR Work Phone: Start: 06-20-2023 Adult depression scr eening assessment Foluso Alamina DELIVERY HELPER-SURVEY OPERATIONS DIRECTOR Work Phone: Start: 05-09-2023 Microscopic observat ion [Identifier] in Cervix by Cyto stain Dayana Middleton EXTRUSION DIE COORDINATOR Work Phone: Start: 05-09-2023 Cytp cerv/vag auto t hin layer prep mnl screen Kimani Cano DO Work Phone: Plan of Treatment Date Care Activity Detail Author Start: 05-09-2026 Screening for malign ant neoplasm of cervix [facility] Start: 09-24-2025 Adult BMI Follow Up Plan Adult BMI Follow Up Plan [facility] Start: 09-24-2025 Adult BMI Screening Adult BMI Screen ing [facility] Start: 09-24-2025 Depression Screening Depression Scre [facility] Start: 09-24-2025 Tobacco Screening Tobacco Screening [facility] Start: 01-12-2025 Influenza vaccination [facility] Start: 12-24-2024 Screening for malign ant neoplasm of breast Mammogram [facility] Start: 12-11-2024 Adult BMI Follow Up Plan Adult BMI Follow Up Plan [facility] Start: 12-11-2024 Adult BMI Screening Adult BMI Screen ing [facility] Start: 12-11-2024 Depression Screening Depression Scre [facility] Start: 12-11-2024 Tobacco Screening Tobacco Screening [facility] Start: 12-10-2024 End: 02-10-2026 MG Breast - bilateral Screening Bilateral screening mammogram Imaging Routine Encounter for screening mammogram for malignant neoplasm of breast Expected: 12/10/2024 (Approximate), Expires: 02/10/2026 [facility] Work Phone: Comment on above: Expected: 12/10/2024 (Approximate), Expires: 02/10/2026 Start: 12-10-2024 End: 12-10-2024 Patient encounter procedure 12/10/2024 1:00 PM EDT Office Visit [facility] [address] [place] [address] Dayana Middleton, EXTRUSION DIE COORDINATOR [address] [place] [address] Arrived [facility]UTH G[facility]IA Comment on above: Arrived Start: 10-30-2024 Adult BMI Follow Up Plan Adult BMI Follow Up Plan [facility] Start: 10-30-2024 Adult BMI Screening Adult BMI Screen ing [facility] Start: 10-30-2024 Tobacco Screening Tobacco Screening [facility] Start: 10-22-2024 End: 10-22-2024 Clinical Support 10/22/2024 10:45 AM EDT Clinical Support [facility] [address] [place] [phone] Tai Barbour, DELIVERY HELPER-SURVEY OPERATIONS DIRECTOR [address] [place] [address] [facility] Start: 08-14-2024 DTaP,Tdap and Td Vaccines (6 - Td or Tdap) DTaP,Tdap and Td Vaccines (6 - Td or Tdap) [facility] Start: 06-20-2024 Adult BMI Follow Up Plan Adult BMI Follow Up Plan [facility] Start: 06-20-2024 Adult BMI Screening Adult BMI Screen ing [facility] Start: 06-20-2024 Depression Screening Depression Scre ening [facility] Start: 06-20-2024 Tobacco Screening Tobacco Screening [facility] Start: 01-13-2024 COVID-19 Vaccine ( season) COVID-19 Vaccine () [facility] Start: 01-13-2024 Influenza vaccination Influenza Vacc ine [facility] Start: 12-26-2023 End: 12-25-2024 NM Guidance limited for localization of tumor NM Molecular breast imaging localization limited area Imaging Routine Dense breast tissue Expected: 12/26/2023, Expires: 12/25/2024 [facility] Work Phone: Comment on above: Expected: 12/26/2023 , Expires: 12/25/2024 Start: 12-25-2023 End: 12-25-2023 Patient encounter procedure 12/25/2023 3:30 PM EDT Appointment [facility] - Ultrasound [address] [facility] [place] [address] [facility] - Ultrasound Start: 12-25-2023 Subsequent hospital visit by physician 12/25/2023 3:00 PM EDT Hospital Encounter [facility] - Mammogram DEXA [address] [place] [address] [facility] - Mammogram DEXA Start: 12-12-2023 End: 12-12-2023 Patient encounter procedure 12/12/2023 4:15 PM EDT Office Visit [facility] [address] [place] [address] Tai Barbour, DELIVERY HELPER-SURVEY OPERATIONS DIRECTOR [address] [place] [phone] [facility] Start: 12-11-2023 End: 12-10-2024 MG Breast Diagnostic Mammography diagnostic bilateral with CAD Imaging Routine Cyst of right breast Expected: 12/11/2023, Expires: 12/10/2024 [facility] Work Phone: Comment on above: Expected: 12/11/2023 , Expires: 12/10/2024 Start: 11-26-2023 End: 11-26-2023 Patient encounter procedure 11/26/2023 4:00 PM EDT Office Visit [facility] [address] [place] [address] Tai Barbour, DELIVERY HELPER-SURVEY OPERATIONS DIRECTOR [address] [place] [phone] [facility] Start: 11-02-2023 End: 11-01-2024 DBT Breast - bilateral screening Mammography screening bilateral with CAD Imaging Routine Encounter for screening mammogram for malignant neoplasm of breast Expected: 11/02/2023, Expires: 11/01/2024 [facility] Work Phone: Comment on above: Expected: 11/02/2023 , Expires: 11/01/2024 Start: 11-02-2023 End: 11-01-2024 US Breast - right limited Ultrasound breast limited right Imaging Routine Mass of right breast, unspecified quadrant Expected: 11/02/2023, Expires: 11/01/2024 [facility] [employer] Comment on above: Expected: 11/02/2023 , Expires: 11/01/2024 Start: 01-12-2023 COVID-19 Vaccine () COVID-19 Vaccine () [facility] Start: 2013 Screening for malign ant neoplasm of cervix HPV/Cotest [facility] Start: 01-09-2004 Screening for malign ant neoplasm of cervix [facility] Bacteria identified in Urine by Culture Urine culture (clean catch) Microbiology Routine Frequent urination 10/22/2024 10:54 AM EDT [employer] Work Phone: End: 06-20-2024 CBC W Auto Differential panel - Blood CBC auto differential Lab Routine Healthcare maintenance 1 Occurrences starting 06/20/2023 until 06/20/2024 [facility] Comment on above: 1 Occurrences starti ng 06/20/2023 until 06/20/2024 End: 09-24-2025 CBC W Auto Differential panel - Blood CBC auto differential Lab Routine Well adult exam 1 Occurrences starting 09/24/2024 until 09/24/2025 [employer] Work Phone: Comment on above: 1 Occurrences starti ng 09/24/2024 until 09/24/2025 End: 06-20-2024 Comprehensive metabolic 2000 panel - Serum or Plasma Comprehensive metabolic panel Lab Routine Healthcare maintenance 1 Occurrences starting 06/20/2023 until 06/20/2024 [facility] Comment on above: 1 Occurrences starti ng 06/20/2023 until 06/20/2024 End: 09-24-2025 Comprehensive metabolic 2000 panel - Serum or Plasma Comprehensive metabolic panel Lab Routine Well adult exam 1 Occurrences starting 09/24/2024 until 09/24/2025 [facility] Comment on above: 1 Occurrences starti ng 09/24/2024 until 09/24/2025 End: 06-20-2024 Lipid 1996 panel - Serum or Plasma Lipid profile Lab Routine Healthcare maintenance 1 Occurrences starting 06/20/2023 until 06/20/2024 [facility] Comment on above: 1 Occurrences starti ng 06/20/2023 until 06/20/2024 End: 09-24-2025 Lipid 1996 panel - Serum or Plasma Lipid profile Lab Routine Well adult exam Encounter for screening for cardiovascular disorders 1 Occurrences starting 09/24/2024 until 09/24/2025 [facility] Comment on above: 1 Occurrences starti ng 09/24/2024 until 09/24/2025 End: 06-20-2024 Magnesium [Mass/volume] in Serum or Plasma Magnesium Lab Routine Healthcare maintenance 1 Occurrences starting 06/20/2023 until 06/20/2024 [facility] [employer] Comment on above: 1 Occurrences starti ng 06/20/2023 until 06/20/2024 End: 09-24-2025 Magnesium [Mass/volume] in Serum or Plasma Magnesium Lab Routine Well adult exam 1 Occurrences starting 09/24/2024 until 09/24/2025 [facility] Comment on above: 1 Occurrences starti ng 09/24/2024 until 09/24/2025 THIN PREP TIS PAP AN D HR HPV DNA THIN PREP TIS PAP AND HR HPV DNA Pathology and Cytology Routine Well woman exam with routine gynecological exam Ordered: 12/10/2024 [facility] Comment on above: Ordered: 12/10/2024 End: 06-20-2024 TSH with Reflex TSH with Reflex Lab Routine Healthcare maintenance 1 Occurrences starting 06/20/2023 until 06/20/2024 [facility] [employer] Comment on above: 1 Occurrences starti ng 06/20/2023 until 06/20/2024 End: 09-24-2025 TSH with Reflex TSH with Reflex Lab Routine Well adult exam 1 Occurrences starting 09/24/2024 until 09/24/2025 [facility] [employer] Comment on above: 1 Occurrences starti ng 09/24/2024 until 09/24/2025 End: 06-20-2024 Vitamin D 25 hydroxy Vitamin D 25 hydroxy Lab Routine Vitamin D deficiency 1 Occurrences starting 06/20/2023 until 06/20/2024 [facility] Work Phone: Comment on above: 1 Occurrences starti ng 06/20/2023 until 06/20/2024 Immunizations Immunization Date Immunization Notes Care Provider Nina johnson 03-11-2024 influenza virus vaccine, unspecified formulation Foluso Alamina DELIVERY HELPER-SURVEY OPERATIONS DIRECTOR Work Phone: [facility] [employer] 03-08-2023 influenza virus vaccine, unspecified formulation Foluso Alamina DELIVERY HELPER-SURVEY OPERATIONS DIRECTOR Work Phone: [facility] 06-25-2020 COVID-19, mRNA, LNP- S, PF, 100mcg/0.5mL Dose Foluso Alamina DELIVERY HELPER-SURVEY OPERATIONS DIRECTOR Work Phone: [facility] 05-19-2020 COVID-19, mRNA, LNP- S, PF, 100mcg/0.5mL Dose Foluso Alamina DELIVERY HELPER-SURVEY OPERATIONS DIRECTOR Work Phone: [facility] Payers Date Payer Category Payer Blue [employer] Blue [employer] [id number] 2023 [employer] - Other [phone] 2023 Unknown [id number] 2017 Unknown [id number] 1983 Unknown [id number] 1983 Unknown [id number] 1983 Unknown [id number] 1983 Unknown [id number] 1983 Unknown [id number] 1983 Unknown [id number] 1983 Unknown [id number] 1983 Unknown [id number] 1983 Unknown [id number] 1959 Self-pay [id number] 1961 Unknown [id number] Social History Date Type Detail Facility Unknown if ever smoked [facility] [employer] Other Start: 05-26-2020 End: 12-12-2023 Sex Assigned At [facility] [employer] Other Start: 06-14-2022 Tobacco smoking status OKIS Ex-smoker [facility] End: 02-11-2013 History of tobacco use Current smoker [facility] End: 02-11-2013 History of tobacco use Cigarette Smoker [facility] Start: 06-14-2022 Tobacco use and exposure Smokeless tobacco non-user [facility] Start: 12-25-2023 End: 09-24-2024 Alcoholic beverage intake Ex-drinker (finding) [facility] Start: 05-26-2020 End: 12-12-2023 History of Social function [facility] How hard is it for y ou to pay for the very basics like food, housing, medical care, and heating Not very hard [facility] Adolescent depressio n screening assessment 0 [facility] Start: 1985 Sex assigned at Not on file [facility] Start: 12-15-2014 Sex Female (finding) [facility] [employer] [facility] Clinical Notes 01-13-2022 to 12-10-2024 Dayana Middleton NP - 12/10/2024 1:00 PM Sobeida Khan CMA - 10/22/2024 10:45 AM TRIPP Chadwick - 09/24/2024 9:15 AM EDTTelephone Encounter - Tori Red - 05/26/2024 7:48 PM EST Note Date & Type Note Facility 12-10-2024 History of Presen t illness Narrative Reason for Appointment: Patient ID: Rama Larson [...] nursing note reviewed. Exam conducted with a car rental service attendant present. Vitals: There is no height or [...] Dayana Middleton NP documented in this encounter [facility] 10-22-2024 History of Presen t illness Narrative Patient presented into the office for a weight check, patient weighed in at 150.0 lbs. Patient lost 9 lbs. Patient tolerated well. Patient also stated that she is having UTI symptoms being, Urgency of urination, and discomfort of urination. Patient left Urine sample and it was dipped for results. documented in this encounter [facility] 09-24-2024 History of Presen t illness Narrative Subjective Patient ID: Rama Jones is a 39 y.o. female. Chief Complaint Chief Complaint Patient presents with Annual Exam Patient would like to discuss weight. HPI Annual Exam Pertinent negatives include no arthralgias, chest pain, congestion, coughing, fatigue, fever, headaches, joint swelling, nausea, numbness, rash, sore throat, vomiting or weakness. Patient is being seen for health maintenance evaluation. Last health maintenance visit was over a year. General Health:She does have regular dental visits.She does not have vision problems.She does not have hearing loss. Immunization status is up to date. Life style: She does not have healthy diet. She does exercise regularly. Reproductive health: She is sexually active. She does not have sexual dysfunction. She does not use contraception. She is not postmenopausal. She does have regular menstrual periods. Screening: Cancer screening reviewed and updated. Metabolic screening reviewed and updated. Risk screening reviewed and updated. Active Problems Patient Active Problem List Diagnosis Endometriosis Polycystic ovarian disease Gastroesophageal reflux disease without esophagitis Past Medical History Past Medical History: Diagnosis Date Abnormal uterine bleeding (AUB) Allergic Anemia Asthma Back pain Depression Eczema GERD (gastroesophageal reflux disease) LGSIL on Pap smear of cervix Migraine Obesity Visual impairment Past Surgical History Past Surgical History: Procedure Laterality Date BREAST BIOPSY Right 2009 ult biopsy benign COLPOSCOPY W/ BIOPSY / CURETTAGE TUBAL LIGATION Family History Family History Problem Relation Age of Onset Diabetes Mother Alcohol abuse Father Breast cancer Maternal Grandmother 38 Breast cancer Maternal Aunt 56 Alcohol abuse Brother Drug abuse Brother Social History Social History Socioeconomic History Marital status: Single Spouse name: Not on file Number of children: Not on file Years of education: Not on file Highest education level: Not on file Occupational History Not on file Tobacco Use Smoking status: Former Current packs/day: 0.00 Types: Cigarettes Quit date: 02/11/2013 Years since quittin.6 Smokeless tobacco: Never Vaping Use Vaping status: Never Used Substance and Sexual Activity Alcohol use: Not Currently Drug use: No Sexual activity: Yes control/protection: Surgical Other Topics Concern Not on file Social History Narrative Not on file Social Drivers of Health Financial Resource Strain: Low Risk (09/23/2024) Overall Financial Resource Strain (CARDIA) Difficulty of Paying Living Expenses: Not hard at all Food Insecurity: No Food Insecurity (09/24/2024) Hunger Screening Food Insecurity - Worry: Never True Food Insecurity - Inability: Never True Transportation Needs: No Transportation Needs (09/23/2024) PRAPARE - Transportation Lack of Transportation (Medical): No Lack of Transportation (Non-Medical): No Physical Activity: Not on file Stress: Not on file Social Connections: Not on file Interpersonal Safety: Not on file Housing Instability: Low Risk (09/23/2024) Housing Instability Housing Instability: No Allergies Allergies Allergen Reactions Peanut Phenergan [Promethazine] Current Medications Current Outpatient Medications Medication Sig Dispense Refill albuterol (PROVENTIL HFA;VENTOLIN HFA) 90 mcg/actuation inhaler Inhale 2 puffs every 6 (six) hours as needed for wheezing. 18 g 11 buPROPion (WELLBUTRIN) 75 mg tablet Take 1 tablet (75 mg total) by mouth in the morning and 1 tablet (75 mg total) before bedtime. 180 tablet 0 ergocalciferol (DRISDOL) 1,250 mcg (50,000 unit) capsule TAKE 1 CAPSULE BY MOUTH ONCE WEEKLY 4 capsule 1 hydroCHLOROthiazide (MICROZIDE) 12.5 mg capsule Take 1 capsule (12.5 mg total) by mouth every morning. 90 capsule 1 lisinopriL (PRINIVIL,ZESTRIL) 5 mg tablet Take 1 tablet (5 mg total) by mouth in the morning. 30 tablet 11 nystatin (MYCOSTATIN) powder Apply 1 Application topically in the morning and 1 Application at noon and 1 Application in the evening and 1 Application before bedtime. 60 g 0 omeprazole (PriLOSEC) 20 mg capsule TAKE 1 CAPSULE (20 MG TOTAL) BY MOUTH IN THE MORNING 90 capsule 0 phentermine (ADIPEX-P) 37.5 mg tablet Take 1 tablet (37.5 mg total) by mouth every morning before breakfast. 30 tablet 0 No current facility-administered medications for this visit. Review of Systems Review of Systems Constitutional: Negative for fatigue, fever and unexpected weight change. HENT: Negative for congestion, dental problem, ear pain, nosebleeds, sore throat and trouble swallowing. Eyes: Negative for pain, itching and visual disturbance. Respiratory: Negative for cough, shortness of breath and wheezing. Cardiovascular: Negative for chest pain, palpitations and leg swelling. Gastrointestinal: Negative for constipation, diarrhea, nausea and vomiting. Endocrine: Negative for polydipsia, polyphagia and polyuria. Genitourinary: Negative for dysuria, frequency, hematuria and urgency. Musculoskeletal: Negative for arthralgias, gait problem and joint swelling. Skin: Negative for color change, pallor and rash. Allergic/Immunologic: Negative for environmental allergies and food allergies. Neurological: Negative for dizziness, speech difficulty, weakness, numbness and headaches. Psychiatric/Behavioral: Negative for agitation and suicidal ideas. The patient is not nervous/anxious. Objective Vitals BP 118/82 Pulse 82 Ht 152.4 cm (5') Wt 72.1 kg (159 lb) SpO2 98% BMI 31.05 kg/m Physical Exam Physical Exam Vitals and nursing note reviewed. Constitutional: Appearance: Normal appearance. She is well-developed. HENT: Head: Normocephalic and atraumatic. Right Ear: External ear normal. No drainage. Left Ear: External ear normal. No drainage. Nose: Nose normal. Eyes: Conjunctiva/sclera: Conjunctivae normal. Pupils: Pupils are equal, round, and reactive to light. Cardiovascular: Rate and Rhythm: Normal rate and regular rhythm. Heart sounds: Normal heart sounds. Pulmonary: Effort: Pulmonary effort is normal. No respiratory distress. Breath sounds: Normal breath sounds. Abdominal: General: Bowel sounds are normal. There is no distension. Palpations: Abdomen is soft. There is no mass. Musculoskeletal: General: No tenderness. Normal range of motion. Cervical back: Normal range of motion and neck supple. No rigidity. Lymphadenopathy: Cervical: No cervical adenopathy. Skin: General: Skin is warm and dry. Capillary Refill: Capillary refill takes less than 2 seconds. Findings: No rash. Neurological: Mental Status: She is alert and oriented to person, place, and time. Psychiatric: Behavior: Behavior normal. Behavior is cooperative. Thought Content: Thought content normal. Thought content does not include suicidal ideation. Judgment: Judgment normal. Assessment/Plan 1. Well adult exam - CBC auto differential; Future - Comprehensive metabolic panel; Future - Lipid profile; Future - TSH with Reflex; Future - Magnesium; Future - phentermine (ADIPEX-P) 37.5 mg tablet; Take 1 tablet (37.5 mg total) by mouth every morning before breakfast. Dispense: 30 tablet; Refill: 0 2. Encounter for screening for cardiovascular disorders - Lipid profile; Future 3. Class 1 obesity due to excess calories with serious comorbidity and body mass index (BMI) of 30.0 to 30.9 in adult - phentermine (ADIPEX-P) 37.5 mg tablet; Take 1 tablet (37.5 mg total) by mouth every morning before breakfast. Dispense: 30 tablet; Refill: 0 Plan Adipex #1 Rtc in 4 weeks Orders Placed This Encounter Procedures CBC auto differential Comprehensive metabolic panel Lipid profile TSH with Reflex Magnesium Most recent labs reviewed and explained in detail to the patient during this office visit. Most recent imaging studies reviewed and explained to the patient during this office visit. Most recent field consultant notes reviewed during this office visit. Most recent hospital records reviewed during this office visit. Side effects of prescribed medications reviewed with the patient. Risk and benefits of [id number] medications,supplements and vitamins discussed with patient. All the pertinent questions were answered. Patient noted to have elevated BMI and the following intervention(s) were applied: encouragement to exercise and prescribed diet education. TRIPP Silvestre 09/24/24 [id number] documented in this encounter [facility] 05-26-2024 Miscellaneous Notes Formattin g of this note might be different from the original. Pt last seen 12/12/23 Please advise documented in this encounter [facility] 05-26-2024 Miscellaneous Notes Formattin g of this note might be different from the original. Pt last seen 12/12/23 Please advise documented in this encounter [facility] 05-26-2024 Telephone encount er Note Pt last seen 12/12/23 Please advise [facility] 05-26-2024 Telephone encount er Note Pt last seen 12/12/23 Please advise [facility] 12-12-2023 History of Presen t illness Narrative Subjective Patient ID: Rama Smith is a 38 y.o. female. Chief Complaint Chief Complaint Patient presents with Weight Check HPI Obesity Here to restart weight loss medications- she was on Adipex in the past Denies any side effects while on this medication No chest pain or palpitation. Understands the risk and benefit of weight loss medication. Patient eating better, was 154 lbs at initiation, lost 4 lbs since last visit. Hypertension This is a chronic problem. The current episode started more than 1 year ago. The problem has been waxing and waning since onset. Pertinent negatives include no chest pain, headaches, malaise/fatigue, neck pain, orthopnea, palpitations, peripheral edema or shortness of breath. Risk factors for coronary artery disease include obesity. Past treatments include MOI inhibitors and diuretics. Compliance problems: was out of lisinopril. There is no history of angina, kidney disease or CAD/KS. Active Problems Patient Active Problem List Diagnosis Endometriosis Polycystic ovarian disease Gastroesophageal reflux disease without esophagitis Past Medical History Past Medical History: Diagnosis Date Abnormal uterine bleeding (AUB) Allergic Anemia Asthma Back pain Depression Eczema GERD (gastroesophageal reflux disease) LGSIL on Pap smear of cervix Migraine Obesity Visual impairment Past Surgical History Past Surgical History: Procedure Laterality Date BREAST BIOPSY Right 2009 ult biopsy benign COLPOSCOPY W/ BIOPSY / CURETTAGE TUBAL LIGATION Family History Family History Problem Relation Age of Onset Diabetes Mother Alcohol abuse Father Breast cancer Maternal Grandmother 38 Breast cancer Maternal Aunt 56 Alcohol abuse Brother Drug abuse Brother Social History Social History Socioeconomic History Marital status: Single Spouse name: Not on file Number of children: Not on file Years of education: Not on file Highest education level: Not on file Occupational History Not on file Tobacco Use Smoking status: Former Current packs/day: 0.00 Types: Cigarettes Quit date: 02/11/2013 Years since quittin.8 Smokeless tobacco: Never Vaping Use Vaping status: Never Used Substance and Sexual Activity Alcohol use: Not Currently Drug use: No Sexual activity: Yes control/protection: Surgical Other Topics Concern Not on file Social History Narrative Not on file Social Determinants of Health Financial Resource Strain: Low Risk (12/20/2022) Overall Financial Resource Strain (CARDIA) Difficulty of Paying Living Expenses: Not very hard Food Insecurity: No Food Insecurity (12/12/2023) Hunger Screening Food Insecurity - Worry: Never True Food Insecurity - Inability: Never True Transportation Needs: No Transportation Needs (12/20/2022) PRAPARE - Transportation Lack of Transportation (Medical): No Lack of Transportation (Non-Medical): No Physical Activity: Not on file Stress: Not on file Social Connections: Not on file Interpersonal Safety: Not on file Housing Instability: Low Risk (12/20/2022) Housing Instability Housing Instability: No Allergies Allergies Allergen Reactions Peanut Phenergan [Promethazine] Current Medications Current Outpatient Medications Medication Sig Dispense Refill albuterol (PROVENTIL HFA;VENTOLIN HFA) 90 mcg/actuation inhaler Inhale 2 puffs every 6 (six) hours as needed for wheezing. 18 g 11 buPROPion (WELLBUTRIN) 75 mg tablet Take 1 tablet (75 mg total) by mouth in the morning and 1 tablet (75 mg total) before bedtime. 180 tablet 0 hydroCHLOROthiazide (MICROZIDE) 12.5 mg capsule TAKE 1 CAPSULE BY MOUTH EVERY DAY 90 capsule 1 omeprazole (PriLOSEC) 20 mg capsule TAKE 1 CAPSULE (20 MG TOTAL) BY MOUTH IN THE MORNING 90 capsule 0 ergocalciferol (DRISDOL) 1,250 mcg (50,000 unit) capsule TAKE 1 CAPSULE BY MOUTH ONCE WEEKLY 4 capsule 1 lisinopriL (PRINIVIL,ZESTRIL) 5 mg tablet Take 1 tablet (5 mg total) by mouth in the morning. 30 tablet 11 nystatin (MYCOSTATIN) powder Apply 1 Application topically in the morning and 1 Application at noon and 1 Application in the evening and 1 Application before bedtime. 60 g 0 phentermine (ADIPEX-P) 37.5 mg tablet Take 1 tablet (37.5 mg total) by mouth every morning before breakfast. 30 tablet 0 No current facility-administered medications for this visit. Review of Systems Review of Systems Constitutional: Negative for fatigue, fever, malaise/fatigue and unexpected weight change. HENT: Negative for congestion, dental problem, ear pain, nosebleeds, sore throat and trouble swallowing. Eyes: Negative for pain, itching and visual disturbance. Respiratory: Negative for cough, shortness of breath and wheezing. Cardiovascular: Negative for chest pain, palpitations, orthopnea and leg swelling. Gastrointestinal: Negative for constipation, diarrhea, nausea and vomiting. Endocrine: Negative for polydipsia, polyphagia and polyuria. Genitourinary: Negative for dysuria, frequency, hematuria and urgency. Musculoskeletal: Negative for arthralgias, gait problem, joint swelling and neck pain. Skin: Negative for color change, pallor and rash. Allergic/Immunologic: Negative for environmental allergies and food allergies. Neurological: Negative for dizziness, speech difficulty, weakness, numbness and headaches. Psychiatric/Behavioral: Negative for agitation and suicidal ideas. The patient is not nervous/anxious. Objective Vitals BP (!) 130/98 Pulse 100 Ht 152.4 cm (5') Wt 68 kg (150 lb) BMI 29.29 kg/m Physical Exam Physical Exam Vitals and nursing note reviewed. Constitutional: Appearance: Normal appearance. She is well-developed. HENT: Head: Normocephalic and atraumatic. Right Ear: External ear normal. No drainage. Left Ear: External ear normal. No drainage. Nose: Nose normal. Eyes: Conjunctiva/sclera: Conjunctivae normal. Pupils: Pupils are equal, round, and reactive to light. Cardiovascular: Rate and Rhythm: Normal rate and regular rhythm. Heart sounds: Normal heart sounds. Pulmonary: Effort: Pulmonary effort is normal. No respiratory distress. Breath sounds: Normal breath sounds. Abdominal: General: Bowel sounds are normal. There is no distension. Palpations: Abdomen is soft. There is no mass. Musculoskeletal: General: No tenderness. Normal range of motion. Cervical back: Normal range of motion and neck supple. No rigidity. Lymphadenopathy: Cervical: No cervical adenopathy. Skin: General: Skin is warm and dry. Capillary Refill: Capillary refill takes less than 2 seconds. Findings: No rash. Neurological: Mental Status: She is alert and oriented to person, place, and time. Psychiatric: Behavior: Behavior normal. Behavior is cooperative. Thought Content: Thought content normal. Thought content does not include suicidal ideation. Judgment: Judgment normal. Assessment/Plan 1. Vitamin D deficiency - ergocalciferol (DRISDOL) 1,250 mcg (50,000 unit) capsule; TAKE 1 CAPSULE BY MOUTH ONCE WEEKLY Dispense: 4 capsule; Refill: 1 2. Yeast infection - nystatin (MYCOSTATIN) powder; Apply 1 Application topically in the morning and 1 Application at noon and 1 Application in the evening and 1 Application before bedtime. Dispense: 60 g; Refill: 0 3. Healthcare maintenance 4. Class 1 obesity due to excess calories with serious comorbidity and body mass index (BMI) of 30.0 to 30.9 in adult - phentermine (ADIPEX-P) 37.5 mg tablet; Take 1 tablet (37.5 mg total) by mouth every morning before breakfast. Dispense: 30 tablet; Refill: 0 5. Elevated fasting blood sugar - POCT Hemoglobin A1c 6. Primary hypertension - lisinopriL (PRINIVIL,ZESTRIL) 5 mg tablet; Take 1 tablet (5 mg total) by mouth in the morning. Dispense: 30 tablet; Refill: 11 Plan Rtc in 4 weeks Orders Placed This Encounter Procedures POCT Hemoglobin A1c Most recent labs reviewed and explained in detail to the patient during this office visit. Most recent imaging studies reviewed and explained to the patient during this office visit. Most recent field consultant notes reviewed during this office visit. Most recent hospital records reviewed during this office visit. Side effects of prescribed medications reviewed with the patient. Risk and benefits of [id number] medications,supplements and vitamins discussed with patient. All the pertinent questions were answered. Patient noted to have elevated BMI and the following intervention(s) were applied: encouragement to exercise and prescribed diet education. Return in about 4 weeks (around 01/09/2024) for Recheck. This note is created with the assistance of a speech recognition program. While intending to generate a document that actually reflects the content of the visit, the document can still have some errors including those of syntax and sound a like substitutions which may escape proof reading. It such instances, actual meaning can be extrapolated by contextual diversion. TRIPP Silvestre 12/12/23 1627 documented in this encounter [facility] 12-11-2023 Miscellaneous Notes Formattin g of this note might be different from the original. Nasim from [facility] scheduling called into office stating that they are needing an order placed for patient mammogram. Nasim would like us to call him back once order has been placed. Patient is coming into into office tomorrow. Please Advise The order was placed on 11/02/2023, is there a different order needed? Diagnostic bilateral mammogram is needed. Please advise. Ordered Left detailed message on Nasim's secure line that order was placed. documented in this encounter [facility] 12-11-2023 Telephone encount er Note Nasim from [facility] scheduling called into office stating that they are needing an order placed for patient mammogram. Nasim would like us to call him back once order has been placed. Patient is coming into into office tomorrow. Please Advise [facility] 12-11-2023 Telephone encount er Note The order was placed on 11/02/2023, is there a different order needed? [facility] 12-11-2023 Telephone encount er Note Diagnostic bilateral mammogram is needed. Please advise. [facility] 12-11-2023 Telephone encount er Note Ordered [facility] 12-11-2023 Telephone encount er Note Left detailed message on Nasim's secure line that order was placed. [facility] 11-06-2023 Miscellaneous Notes From: Isaiah Smith To: Office of TRIPP Silvestre Sent: 11/06/2023 10:13 AM EDT Subject: Medication Renewal Request Refills have been requested for the following medications: Other - Phentermine Preferred pharmacy: [facility] [address] [place] [address] Delivery method: Pickup Medication renewals requested in this message routed separately: buPROPion (W ELLBUTRIN) 75 mg tablet [[employer] Km, DELIVERY HELPER-SURVEY OPERATIONS DIRECTOR] Pt last seen 10/31/23 Please advise documented in this encounter [facility] 11-06-2023 Miscellaneous Notes Formattin g of this note might be different from the original. Last visit: 10/31/23 Please advise. documented in this encounter [facility] 11-06-2023 Telephone encount er Note From: Rama Smith To: Office of Youngusbarbie Barbour DELIVERY HELPER-SURVEY OPERATIONS DIRECTOR Sent: 11/06/2023 10:13 AM EDT Subject: Medication Renewal Request Refills have been requested for the following medications: Other - Phentermine Preferred pharmacy: [facility] [address] [place] [address] Delivery method: Pickup Medication renewals requested in this message routed separately: buPROPion (W ELLBUTRIN) 75 mg tablet [Foluso Alafran, DELIVERY HELPER-SURVEY OPERATIONS DIRECTOR] [facility] 11-06-2023 Telephone encount er Note Pt last seen 10/31/23 Please advise [facility] 11-06-2023 Telephone encount er Note Last visit: 10/31/23 Please advise. [facility] 11-02-2023 Miscellaneous Notes Formattin g of this note might be different from the original. Patient requesting refill of wellbutrin, send to [facility] in [place]. Patient is also requesting mammogram, she needs it with the ultrasound due to the fibroid they found in the past in her right breast. Addended by: TAI BARBOUR on: 11/02/2023 04:52 PM Modules accepted: Orders documented in this encounter [facility] 11-02-2023 Note Addended by: TAI BARBOUR on: 11/02/2023 04:52 PM Modules accepted: Orders [facility] 11-02-2023 Telephone encount er Note Patient requesting refill of wellbutrin, send to [facility] in [place]. Patient is also requesting mammogram, she needs it with the ultrasound due to the fibroid they found in the past in her right breast. [facility] 10-31-2023 History of Presen t illness Narrative Subjective Patient ID: Rama Smith is a 38 y.o. female. Chief Complaint Chief Complaint Patient presents with Weight Check HPI Obesity Here to restart weight loss medications- she was on Adipex in the past Denies any side effects while on this medication No chest pain or palpitation. Understands the risk and benefit of weight loss medication. Patient is doing exercise more regularly- doing Patient is counting her calories and trying to eat less than 1500 calories everyday Hypertension This is a chronic problem. The current episode started more than 1 year ago. The problem is unchanged. The problem is controlled. Pertinent negatives include no anxiety, blurred vision, chest pain, headaches, malaise/fatigue, neck pain, orthopnea, palpitations or PND. There are no associated agents to hypertension. There are no compliance problems. Anxiety Presents for follow-up visit. Symptoms include decreased concentration, excessive worry and nervous/anxious behavior. Patient reports no chest pain, dizziness, insomnia, nausea, palpitations, shortness of breath or suicidal ideas. Primary symptoms comment: patient also in school-under lots of stress . Symptoms occur most days. The severity of symptoms is moderate. The quality of sleep is fair. Active Problems Patient Active Problem List Diagnosis Endometriosis Polycystic ovarian disease Gastroesophageal reflux disease without esophagitis Past Medical History Past Medical History: Diagnosis Date Abnormal uterine bleeding (AUB) Allergic Anemia Asthma Back pain Depression Eczema GERD (gastroesophageal reflux disease) LGSIL on Pap smear of cervix Migraine Obesity Visual impairment Past Surgical History Past Surgical History: Procedure Laterality Date BREAST BIOPSY Right 2009 ult biopsy benign COLPOSCOPY W/ BIOPSY / CURETTAGE TUBAL LIGATION Family History Family History Problem Relation Age of Onset Diabetes Mother Alcohol abuse Father Breast cancer Maternal Grandmother 38 Breast cancer Maternal Aunt 56 Alcohol abuse Brother Drug abuse Brother Social History Social History Socioeconomic History Marital status: Single Spouse name: Not on file Number of children: Not on file Years of education: Not on file Highest education level: Not on file Occupational History Not on file Tobacco Use Smoking status: Former Current packs/day: 0.00 Types: Cigarettes Quit date: 02/11/2013 Years since quittin.7 Smokeless tobacco: Never Vaping Use Vaping status: Never Used Substance and Sexual Activity Alcohol use: Not Currently Drug use: No Sexual activity: Yes control/protection: Surgical Other Topics Concern Not on file Social History Narrative Not on file Social Determinants of Health Financial Resource Strain: Low Risk (12/20/2022) Overall Financial Resource Strain (CARDIA) Difficulty of Paying Living Expenses: Not very hard Food Insecurity: No Food Insecurity (06/20/2023) Hunger Screening Food Insecurity - Worry: Never True Food Insecurity - Inability: Never True Transportation Needs: No Transportation Needs (12/20/2022) PRAPARE - Transportation Lack of Transportation (Medical): No Lack of Transportation (Non-Medical): No Physical Activity: Not on file Stress: Not on file Social Connections: Not on file Interpersonal Safety: Not on file Housing Instability: Low Risk (12/20/2022) Housing Instability Housing Instability: No Allergies Allergies Allergen Reactions Peanut Phenergan [Promethazine] Current Medications Current Outpatient Medications Medication Sig Dispense Refill albuterol (PROVENTIL HFA;VENTOLIN HFA) 90 mcg/actuation inhaler Inhale 2 puffs every 6 (six) hours as needed for wheezing. 18 g 11 buPROPion (WELLBUTRIN) 75 mg tablet TAKE 1 TABLET (75 MG TOTAL) BY MOUTH IN THE MORNING AND BEFORE BEDTIME 180 tablet 0 lisinopriL (PRINIVIL,ZESTRIL) 5 mg tablet Take 1 tablet (5 mg total) by mouth in the morning. 30 tablet 11 nystatin (MYCOSTATIN) powder Apply 1 Application topically in the morning and 1 Application at noon and 1 Application in the evening and 1 Application before bedtime. 60 g 0 omeprazole (PriLOSEC) 20 mg capsule TAKE 1 CAPSULE (20 MG TOTAL) BY MOUTH IN THE MORNING 90 capsule 0 ergocalciferol (DRISDOL) 1,250 mcg (50,000 unit) capsule TAKE 1 CAPSULE BY MOUTH ONCE WEEKLY 4 capsule 1 hydroCHLOROthiazide (MICROZIDE) 12.5 mg capsule Take 1 capsule (12.5 mg total) by mouth daily. 30 capsule 2 phentermine-topiramate (QSYMIA) 7.5-46 mg capsule, ER multiphase 24 hr Take 1 capsule by mouth in the morning. (Patient not taking: Reported on 10/31/2023) 30 capsule 2 No current facility-administered medications for this visit. Review of Systems Review of Systems Constitutional: Positive for unexpected weight change. Negative for fatigue and fever (weight gain). HENT: Negative for congestion, dental problem, ear pain, nosebleeds, sore throat and trouble swallowing. Eyes: Negative for pain, itching and visual disturbance. Respiratory: Negative for cough, shortness of breath and wheezing. Cardiovascular: Positive for leg swelling (intermittent). Negative for chest pain and palpitations. Gastrointestinal: Negative for constipation, diarrhea, nausea and vomiting. Endocrine: Negative for polydipsia, polyphagia and polyuria. Genitourinary: Negative for dysuria, frequency, hematuria and urgency. Musculoskeletal: Negative for arthralgias, gait problem and joint swelling. Skin: Negative for color change, pallor and rash. Allergic/Immunologic: Negative for environmental allergies and food allergies. Neurological: Negative for dizziness, speech difficulty, weakness, numbness and headaches. Psychiatric/Behavioral: Negative for agitation and suicidal ideas. The patient is not nervous/anxious. Objective Vitals BP (!) 110/94 Pulse 84 Ht 152.4 cm (5') Wt 69.9 kg (154 lb) BMI 30.08 kg/m Physical Exam Physical Exam Vitals and nursing note reviewed. Constitutional: Appearance: Normal appearance. She is well-developed. HENT: Head: Normocephalic and atraumatic. Right Ear: External ear normal. No drainage. Left Ear: External ear normal. No drainage. Nose: Nose normal. Eyes: Conjunctiva/sclera: Conjunctivae normal. Pupils: Pupils are equal, round, and reactive to light. Cardiovascular: Rate and Rhythm: Normal rate and regular rhythm. Heart sounds: Normal heart sounds. Pulmonary: Effort: Pulmonary effort is normal. No respiratory distress. Breath sounds: Normal breath sounds. Abdominal: General: Bowel sounds are normal. There is no distension. Palpations: Abdomen is soft. There is no mass. Musculoskeletal: General: No tenderness. Normal range of motion. Cervical back: Normal range of motion and neck supple. No rigidity. Lymphadenopathy: Cervical: No cervical adenopathy. Skin: General: Skin is warm and dry. Capillary Refill: Capillary refill takes less than 2 seconds. Findings: No rash. Neurological: Mental Status: She is alert and oriented to person, place, and time. Psychiatric: Behavior: Behavior normal. Behavior is cooperative. Thought Content: Thought content normal. Thought content does not include suicidal ideation. Judgment: Judgment normal. Assessment/Plan 1. Vitamin D deficiency - ergocalciferol (DRISDOL) 1,250 mcg (50,000 unit) capsule; TAKE 1 CAPSULE BY MOUTH ONCE WEEKLY Dispense: 4 capsule; Refill: 1 2. Primary hypertension 3. BMI 26.0-26.9,adult 4. Anxiety Plan Starting back on Adipex No orders of the defined types were placed in this encounter. Side effects of prescribed medications reviewed with the patient. Risk and benefits of [id number] medications,supplements and vitamins discussed with patient. All the pertinent questions were answered. Patient noted to have elevated BMI and the following intervention(s) were applied: encouragement to exercise and prescribed diet education. Return in about 4 weeks (around 11/28/2023) for Recheck. This note is created with the assistance of a speech recognition program. While intending to generate a document that actually reflects the content of the visit, the document can still have some errors including those of syntax and sound a like substitutions which may escape proof reading. It such instances, actual meaning can be extrapolated by contextual diversion. TRIPP Silvestre 10/31/23 1721 documented in this encounter [facility] 06-20-2023 History of Presen t illness Narrative Subjective Patient ID: Rama Smith is a 38 y.o. female. Chief Complaint Chief Complaint Patient presents with Hypertension 3 month check up HPI Obesity Here for followup on weight loss medication. Denies any side effects. No chest pain or palpitation. Understands the risk and benefit of weight loss medication. Patient is doing exercise more regularly. Patient is counting her calories and trying to eat less than 1500 calories everyday- cut back on fast foods, soda- reports improved energy. Hypertension This is a chronic problem. The current episode started more than 1 year ago. The problem is unchanged. The problem is controlled. Pertinent negatives include no anxiety, blurred vision, chest pain, headaches, malaise/fatigue, neck pain, orthopnea, palpitations or PND. There are no associated agents to hypertension. There are no compliance problems. Hypertension This is a chronic problem. The current episode started more than 1 year ago. The problem is controlled. Pertinent negatives include no chest pain, headaches, malaise/fatigue, neck pain, palpitations or shortness of breath. Past treatments include MOI inhibitors (has been WNL). There is no history of angina or kidney disease. Active Problems Patient Active Problem List Diagnosis Endometriosis Polycystic ovarian disease Gastroesophageal reflux disease without esophagitis Past Medical History Past Medical History: Diagnosis Date Abnormal uterine bleeding (AUB) Allergic Anemia Asthma Back pain Depression Eczema GERD (gastroesophageal reflux disease) LGSIL on Pap smear of cervix Migraine Obesity Visual impairment Past Surgical History Past Surgical History: Procedure Laterality Date BREAST BIOPSY Right 2008 ult biopsy benign COLPOSCOPY W/ BIOPSY / CURETTAGE TUBAL LIGATION Family History Family History Problem Relation Age of Onset Diabetes Mother Alcohol abuse Father Breast cancer Maternal Grandmother 38 Breast cancer Maternal Aunt 56 Alcohol abuse Brother Drug abuse Brother Social History Social History Socioeconomic History Marital status: Single Spouse name: Not on file Number of children: Not on file Years of education: Not on file Highest education level: Not on file Occupational History Not on file Tobacco Use Smoking status: Former Types: Cigarettes Quit date: 02/11/2013 Years since quittin.3 Smokeless tobacco: Never Vaping Use Vaping Use: Never used Substance and Sexual Activity Alcohol use: Not Currently Drug use: No Sexual activity: Yes control/protection: Surgical Other Topics Concern Not on file Social History Narrative Not on file Social Determinants of Health Financial Resource Strain: Low Risk (12/20/2022) Overall Financial Resource Strain (CARDIA) Difficulty of Paying Living Expenses: Not very hard Food Insecurity: No Food Insecurity (06/20/2023) Hunger Screening Food Insecurity - Worry: Never True Food Insecurity - Inability: Never True Transportation Needs: No Transportation Needs (12/20/2022) PRAPARE - Transportation Lack of Transportation (Medical): No Lack of Transportation (Non-Medical): No Physical Activity: Not on file Stress: Not on file Social Connections: Not on file Interpersonal Safety: Not on file Housing Instability: Low Risk (12/20/2022) Housing Instability Housing Instability: No Allergies Allergies Allergen Reactions Peanut Phenergan [Promethazine] Current Medications Current Outpatient Medications Medication Sig Dispense Refill buPROPion (WELLBUTRIN) 75 mg tablet TAKE 1 TABLET (75 MG TOTAL) BY MOUTH IN THE MORNING AND BEFORE BEDTIME 180 tablet 0 nystatin (MYCOSTATIN) powder Apply 1 Application topically in the morning and 1 Application at noon and 1 Application in the evening and 1 Application before bedtime. 60 g 0 omeprazole (PriLOSEC) 20 mg capsule TAKE 1 CAPSULE (20 MG TOTAL) BY MOUTH IN THE MORNING 90 capsule 0 phentermine-topiramate (QSYMIA) 3.75-23 mg capsule, ER multiphase 24 hr Take 1 each by mouth in the morning. 14 capsule 0 ergocalciferol (DRISDOL) 1,250 mcg (50,000 unit) capsule TAKE 1 CAPSULE BY MOUTH ONCE WEEKLY 4 capsule 1 KLOR-CON M10 10 mEq CR tablet TAKE 1 TABLET BY MOUTH EVERY DAY IN THE MORNING (Patient not taking: Reported on 06/20/2023) 30 tablet 1 lisinopriL (PRINIVIL,ZESTRIL) 5 mg tablet Take 1 tablet (5 mg total) by mouth in the morning. 30 tablet 11 phentermine-topiramate (QSYMIA) 7.5-46 mg capsule, ER multiphase 24 hr Take 1 capsule by mouth in the morning. 30 capsule 0 No current facility-administered medications for this visit. Review of Systems Review of Systems Constitutional: Negative for fatigue, fever, malaise/fatigue and unexpected weight change. HENT: Negative for congestion, dental problem, ear pain, nosebleeds, sore throat and trouble swallowing. Eyes: Negative for pain, itching and visual disturbance. Respiratory: Negative for cough, shortness of breath and wheezing. Cardiovascular: Negative for chest pain, palpitations and leg swelling. Gastrointestinal: Negative for constipation, diarrhea, nausea and vomiting. Endocrine: Negative for polydipsia, polyphagia and polyuria. Genitourinary: Negative for dysuria, frequency, hematuria and urgency. Musculoskeletal: Negative for arthralgias, gait problem, joint swelling and neck pain. Skin: Negative for color change, pallor and rash. Allergic/Immunologic: Negative for environmental allergies and food allergies. Neurological: Negative for dizziness, speech difficulty, weakness, numbness and headaches. Psychiatric/Behavioral: Negative for agitation and suicidal ideas. The patient is not nervous/anxious. Objective Vitals BP 124/80 Ht 152.4 cm (5') Wt 63.4 kg (139 lb 12.8 oz) BMI 27.30 kg/m Physical Exam Physical Exam Vitals and nursing note reviewed. Constitutional: Appearance: Normal appearance. She is well-developed. HENT: Head: Normocephalic and atraumatic. Right Ear: External ear normal. No drainage. Left Ear: External ear normal. No drainage. Nose: Nose normal. Eyes: Conjunctiva/sclera: Conjunctivae normal. Pupils: Pupils are equal, round, and reactive to light. Cardiovascular: Rate and Rhythm: Normal rate and regular rhythm. Heart sounds: Normal heart sounds. Pulmonary: Effort: Pulmonary effort is normal. No respiratory distress. Breath sounds: Normal breath sounds. Abdominal: General: Bowel sounds are normal. There is no distension. Palpations: Abdomen is soft. There is no mass. Musculoskeletal: General: No tenderness. Normal range of motion. Cervical back: Normal range of motion and neck supple. No rigidity. Lymphadenopathy: Cervical: No cervical adenopathy. Skin: General: Skin is warm and dry. Capillary Refill: Capillary refill takes less than 2 seconds. Findings: No rash. Neurological: Mental Status: She is alert and oriented to person, place, and time. Psychiatric: Behavior: Behavior normal. Behavior is cooperative. Thought Content: Thought content normal. Thought content does not include suicidal ideation. Judgment: Judgment normal. Assessment/Plan 1. BMI 27.0-27.9,adult - phentermine-topiramate (QSYMIA) 7.5-46 mg capsule, ER multiphase 24 hr; Take 1 capsule by mouth in the morning. Dispense: 30 capsule; Refill: 0 2. Primary hypertension - phentermine-topiramate (QSYMIA) 7.5-46 mg capsule, ER multiphase 24 hr; Take 1 capsule by mouth in the morning. Dispense: 30 capsule; Refill: 0 3. Weight loss due to medication - phentermine-topiramate (QSYMIA) 7.5-46 mg capsule, ER multiphase 24 hr; Take 1 capsule by mouth in the morning. Dispense: 30 capsule; Refill: 0 4. Vitamin D deficiency - ergocalciferol (DRISDOL) 1,250 mcg (50,000 unit) capsule; TAKE 1 CAPSULE BY MOUTH ONCE WEEKLY Dispense: 4 capsule; Refill: 1 - Vitamin D 25 hydroxy; Future 5. Healthcare maintenance - CBC auto differential; Future - Comprehensive metabolic panel; Future - Lipid profile; Future - TSH with Reflex; Future - Magnesium; Future - lisinopriL (PRINIVIL,ZESTRIL) 5 mg tablet; Take 1 tablet (5 mg total) by mouth in the morning. Dispense: 30 tablet; Refill: 11 Plan Decreasing lisinopril to 5mg to restart if BP worsens, plan to stop completey if BP stays WN: without medication and continual weight loss Orders Placed This Encounter Procedures Vitamin D 25 hydroxy CBC auto differential Comprehensive metabolic panel Lipid profile TSH with Reflex Magnesium Discussed with the patient in detail about recommended vaccination for the age, risk and benefits discussed, answered all the questions, advised the patient how and where to get the vaccine. Most recent labs reviewed and explained in detail to the patient during this office visit. Side effects of prescribed medications reviewed with the patient. Risk and benefits of nmom-vte-[id number] medications,supplements and vitamins discussed with patient. All the pertinent questions were answered. Patient noted to have elevated BMI and the following intervention(s) were applied: encouragement to exercise and prescribed diet education. No follow-ups on file. This note is created with the assistance of a speech recognition program. While intending to generate a document that actually reflects the content of the visit, the document can still have some errors including those of syntax and sound a like substitutions which may escape proof reading. It such instances, actual meaning can be extrapolated by contextual diversion. TRIPP Silvestre 06/20/23 1646 documented in this encounter [facility] 06-20-2023 Miscellaneous Notes Addended by: TAI BARBOUR on: 06/20/2023 05:03 PM Modules accepted: Orders documented in this encounter [facility] 06-20-2023 Note Addended by: TAI BARBOUR on: 06/20/2023 05:03 PM Modules accepted: Orders [facility] 03-28-2023 Evaluation note Encounter Date Diagnosis Assessment Notes Mar, Acute sinusitis, recurrence not specified, unspecified location (ICD-10 - J01.90) Drink plenty fluids, get plenty of rest. Take the amoxicillin with clavulanate and prednisone as prescribed until gone. Use your Flonase inhaler daily until your symptoms improved. Follow-up with your family physician if no improvement in 2 to 3 days. Take Tylenol or Motrin as needed for aches pains or fevers [employer] Other 09-02-2022 NoteOPERATIVE NOTE OPERATION DATE: 01/13/2022 PROCEDURE: Patricia endometrial ablation with hysteroscopy. PREOPERATIVE DIAGNOSIS: Menorrhagia. POSTOPERATIVE DIAGNOSIS: Menorrhagia. ANESTHESIA: General. SURGEON: Kimani Rachael, D.O. FOURTH MATE: None. SPECIMEN: None. FINDINGS: Normal appearing cavity. No gross evidence of polyps, fibroid or malignancy. Both ostia seen. URINE OUTPUT: Yellow and clear. BLOOD LOSS: 5 mL. PROCEDURE: The patient was taken back to the OR where she was prepped and draped in the normal sterile fashion after being placed in the dorsal lithotomy position, after being placed under general anesthesia without difficulty. A weighted speculum was placed into the vagina. The anterior lip was grasped with a single tooth tenaculum. The patient was then sounded to approximated 9 cm. The patient's cervix was gently dilated using Hegar dilators. The hysteroscope was passed through the cervix into the uterus where both ostia were seen. No gross evidence of polyps, fibroids or malignancy. The cervical length was noted to be 5 cm. The total cavity length is 4 cm. The Patricia ablation apparatus was set to approximately 4 cm in length. This was placed through the cervix and into the uterus. After the seal was tested, at that time the total ablation of 120 seconds was performed with the Patricia without difficulty. All instruments were removed from the vagina. Excellent hemostasis noted. Sponge and lap count correct times 2. Patient taken to recovery in stable condition[facility] Primary hypertension Unspecified essential hypertension [facility] Diagnosis Anxiety Anxiety state, unspecified [facility] Diagnosis Healthcare maintenance- Primary BMI 27.0-27.9,adult Primary hypertension Unspecified essential hypertension Weight loss due to medication Vitamin D deficiency [facility] Diagnosis Primary hypertension- Primary Unspecified essential hypertension Vitamin D deficiency BMI 26.0-26.9,adult Anxiety Anxiety state, unspecified [facility] Diagnosis Encounter for screening mammogram for malignant neoplasm of breast- Primary Anxiety Anxiety state, unspecified Mass of right breast, unspecified quadrant [facility] Diagnosis Anxiety Anxiety state, unspecified [facility] Diagnosis Cyst of right breast- Primary [facility] Diagnosis Primary hypertension- Primary Unspecified essential hypertension Vitamin D deficiency Yeast infection Healthcare maintenance Class 1 obesity due to excess calories with serious comorbidity and body mass index (BMI) of 30.0 to 30.9 in adult Elevated fasting blood sugar Impaired fasting glucose [facility] Diagnosis Dense breast tissue- Primary [facility] Diagnosis Well adult exam- Primary Routine general medical examination at a health care facility Encounter for screening for cardiovascular disorders Class 1 obesity due to excess calories with serious comorbidity and body mass index (BMI) of 30.0 to 30.9 in adult [facility] Diagnosis Frequent urination- Primary Urinary frequency Well adult exam Routine general medical examination at a health care facility Class 1 obesity due to excess calories with serious comorbidity and body mass index (BMI) of 30.0 to 30.9 in adult [facility]* Diagnosis Well woman exam with routine gynecological exam Routine gynecological examination Encounter for screening mammogram for malignant neoplasm of breast documented [facility] this [facility] N[facility]ative - Reported* Type Description Date Medical History asthma Medical History endometriosis Surgical History laparoscopy Surgical History tubal ligation [employer] Other InstructionsNot on filedocumented in this encounter [facility] filedocument[facility]ed [facility] filedocumented in [facility] filedocumented in this [facility] filedocumented in this [facility] filedocumented in this [facility] filedocumented in this [facility] filedocument[facility] Summary Purpose Family History No Family History Records FoundNo Family History Records FoundNo Family History Records Found Advance Directives No Advanced Directives Records FoundNo Advanced Directives Records FoundNo Advanced Directives Records Found Reason for Referral Specialty Diagnoses / Procedures Referred By Phylicia cordero Referred To Contact Radiology Diagnoses Dense breast tissue Procedures NM Molecular breast imaging localization limited area aTi Barbour APRN-CNP [address] [place] [address] Referral ID Status Reason Start Date Expiration Date V isits Requested Visits Authorized [id number] Pending Review 12/26/2023 12/25/2024 5 5 Specialty Diagnoses / Procedures Referred By Phylicia cordero Referred To Contact Diagnoses Class 1 obesity due to excess calories with serious comorbidity and body mass index (BMI) of 30.0 to 30.9 in adult Tai Barbour APRN-CNP [address] [place] [address] Referral ID Status Reason Start Date Expiration Date Visits Re quested Visits Authorized [id number] Closed 1 1 Additional Source Comments INFORMATION SOURCE (unrecogn ized section and content) DATE CREATED AUTHOR 01/19/2022 [facility] p[facility] DATE CREATED AUTHOR AUTHOR'S ORGANIZ ATION 05/11/2023 [facility] EPIC DATE CREATED AUTHOR AUTHOR'S ORGANIZ ATION 12/27/2023 [facility] REASON FOR VISIT (unrecogniz ed section and content) Reason Onset Date Comments Med Refill 05/26/2024 Reason Comments Hypertension 3 month check up Reason Comments Weight Check Reason Onset Date Comments Med Refill 11/02/2023 Reason Onset Date Comments Med Refill 11/06/2023 Reason Comments Med Change Request Reason Comments Weight Check Reason Comments Annual Exam Patient would like t o discuss weight. Reason Comments Well Women Visit Care Teams (unrecognized sec tion and content) Street Light Repairer Relationship Specialty Start Date End Date Tai Barbour APRN-CNP [address] [place] [address] PCP - General Family Medicine 09/20/22 Street Light Repairer Relationship Specialty Start Date End Date Tai Barbour APRN-CNP [address] [place] [address] PCP - General Family Medicine 09/20/22 Street Light Repairer Relationship Specialty Start Date End Date Alamina, Foluso, DELIVERY HELPER-SURVEY OPERATIONS DIRECTOR [address] [place] [address] PCP - General Family Medicine 09/20/22 Street Light Repairer Relationship Specialty Start Date End Date Alamina, Foluso, DELIVERY HELPER-SURVEY OPERATIONS DIRECTOR [address] [place] [address] PCP - General Family Medicine 09/20/22 Street Light Repairer Relationship Specialty Start Date End Date Alamina, Foluso, DELIVERY HELPER-SURVEY OPERATIONS DIRECTOR [address] [place] [address] PCP - General Family Medicine 09/20/22 Street Light Repairer Relationship Specialty Start Date End Date Alamina, Foluso, DELIVERY HELPER-SURVEY OPERATIONS DIRECTOR [address] [place] [phone] PCP - General Family Medicine 09/20/22 Street Light Repairer Relationship Specialty Start Date End Date Alamina, Foluso, DELIVERY HELPER-SURVEY OPERATIONS DIRECTOR [address] [place] [address] PCP - General Family Medicine 09/20/22 [address] Light Repairer Relationship Specialty Start Date End Date Alamina, Foluso, DELIVERY HELPER-SURVEY OPERATIONS DIRECTOR [address] [place] [address] PCP - General Family Medicine 09/20/22 Street Light Repairer Relationship Specialty Start Date End Date Alamina, Foluso, DELIVERY HELPER-SURVEY OPERATIONS DIRECTOR [address] [place] [address] PCP - General Family Medicine 09/20/22 Street Light Repairer Relationship Specialty Start Date End Date Tai Barbour, DELIVERY HELPER-SURVEY OPERATIONS DIRECTOR [address] [place] [address] PCP - General Family Medicine 09/20/22 [address] Light Repairer Relationship Specialty Start Date End Date Tai Barbour, DELIVERY HELPER-SURVEY OPERATIONS DIRECTOR [address] [place] [address] PCP - General Family Medicine 09/20/22 [address] Light Repairer Relationship Specialty Start Date End Date Tai Barbour, DELIVERY HELPER-SURVEY OPERATIONS DIRECTOR [address] [place] [address] PCP - General Family Medicine 09/20/22 Street Light Repairer Relationship Specialty Start Date End Date Tai Barbour, DELIVERY HELPER-SURVEY OPERATIONS DIRECTOR [address] [place] [address] PCP - General Family Medicine 09/20/22 Street Light Repairer Relationship Specialty Start Date End Date Tai Barbour MD PCP - General Family Medicine 05/09/23 Street Light Repairer Relationship Specialty Start Date End Date Tai Barbour MD PCP - General Family Medicine 05/09/23 FOR RECORDS PERTAINING TO PATIENTS WHO ARE OR HAVE BEEN ENROLLED IN A CHEMICAL DEPENDENCY/SUBSTANCEABUSE PROGRAM, SOME INFORMATION MAY BE OMITTED. This clinical summary was aggregated from multiple sources. Caution should be exercised in using it in the provision of clinical care. This summary normalizes information from multiple sources, and as a consequence, information in this document may materially change the coding, format and clinical context of patient data. In addition, data may be omitted in some cases. CLINICAL DECISIONS SHOULD BE BASED ON THE PRIMARY CLINICAL RECORDS. [facility] [employer] [facility]. provides no warranty or guarantee of the accuracy or completeness of information in this document.
--- OUTSIDE RECORDS SUMMARY | 2024-12-11 07:51 | XMS_ITS | Encounter Summary ---
Author Organization [employer] Address [id number] [address] [place] [address] Care Team Providers Care Dependency Case Manager Name Role Phone Severiano Barbour POND TENDER-INTEGRATION DIRECTOR Primary Care Provider + Encounter Details Date Type Department Care Team (Late st Contact Info) Description 10/24/2024 Orders Only [facility] [address] [place] [address] Severiano Barbour APRN-INTEGRATION DIRECTOR [address] [place] [address] Acute cystitis with hematuria (Primary Dx) Social History Tobacco Use Types Packs/Day Years Used Date Smoking Tobacco: Former Cigarettes Q uit: 02/11/2013 Smokeless Tobacco: Never Alcohol Use Standard Drinks/Week Comments Not Currently 0 (1 standard drink = 0.6 oz pur e alcohol) Overall Financial Resource Strain (CARDIA) Answe r Date Recorded How hard is it for you to pa y for the very basics like food, housing, medical care, and heating? Not hard at all 09/23/2024 PHQ-2 Answer Date Recorded Total Score 0 09/24/2024 PRAPARE - Transportation Answer Date Re corded In the past 12 months, has l ack of transportation kept you from medical appointments or from getting medications? No 09/11 In the past 12 months, has l ack of transportation kept you from meetings, work, or from getting things needed for daily living? No 09/23/2024 Housing Instability Answer Date Recorde d Are you worried or concerned that in the next two months you may not have stable housing that you own, rent or stay in as a part of a household? No 09/23/2024 Childcare Answer Date Recorded Childcare Unknown 10/21/2018 Employment Answer Date Recorded Employment Unknown 10/21/2018 Hunger Screening Answer Date Recorded Within the past 12 months we worried whether our food would run out before we got money to buy more. Never True 09/24/2024 Within the past 12 months th e food we bought just didn't last and we didn't have money to get more. Never True 09/24/2024 Purpose - Life Answer Date Recorded Purpose and direction in life Unknown Comments No Sex and Gender Information Value Date Recorded Sex Assigned at Not on file Legal Sex Female 12:24 PM EDT Gender Identity Not on file Sexual Orientation Not on file documented as of this encounter Plan of Treatment Not on file documented as of this encounter Visit Diagnoses Diagnosis Acute cystitis with hematuria- Primary documented in this encounter Additional Health Concerns Assessment Noted Time PHQ-9 Depression Total Score: 0 09/25/19 25 9:15 AM EDT A Body Mass Index follow-up plan has been documented for the patient 09/24/2024 9:41 AM EDT documented as of this encounter Care Teams Dependency Case Manager Relationship Specialty Start Date End Date Severiano Barbour APRN-MELISSA [address] [place] [phone] PCP - General Family Medicine 09/20/22 documented as of this encounter
--- OUTSIDE RECORDS SUMMARY | 2024-12-11 07:51 | XMS_ITS | Encounter Summary ---
Author Organization [employer] Address [id number] [address] [place] [address] Care Team Providers Care Lining Repairer Name Role Phone Severiano Barbour STERILE PROCESS TECH-MIGRATORY WORKER Primary Care Provider + Reason for Visit * Reason Comments Med Change Request Encounter Details Date Type Department Care Team (Late st Contact Info) Description 09/15/2022 Refill [facility] [address] [place] [address] Severiano Barbour APRN-CNP [address] [place] [address] Anxiety Social History Tobacco Use Types Packs/Day Years Used Date Smoking Tobacco: Former Cigarettes Q uit: 02/11/2013 Smokeless Tobacco: Never Alcohol Use Standard Drinks/Week Comments Not Currently 0 (1 standard drink = 0.6 oz pur e alcohol) PHQ-2 Answer Date Recorded Total Score 0 08/23/2022 Childcare Answer Date Recorded Childcare Unknown 10/21/2018 Employment Answer Date Recorded Employment Unknown 10/21/2018 Purpose - Life Answer Date Recorded Purpose and direction in life Unknown Comments No Sex and Gender Information Value Date Recorded Sex Assigned at Not on file Legal Sex Female 12:24 PM EDT Gender Identity Not on file Sexual Orientation Not on file documented as of this encounter Plan of Treatment Not on file documented as of this encounter Visit Diagnoses Diagnosis Anxiety Anxiety state, unspecified documented in this encounter Additional Health Concerns Assessment Noted Time PHQ-9 Depression Total Score: 0 08/24/19 4:12 PM EDT A Body Mass Index follow-up plan has been documented for the patient 08/23/2022 4:28 PM EDT documented as of this encounter Care Teams Lining Repairer Relationship Specialty Start Date End Date Severiano Barbour APRN-MELISSA [address] [place] [phone] PCP - General Family Medicine 09/20/22 documented as of this encounter
--- OUTSIDE RECORDS SUMMARY | 2024-12-11 07:51 | XMS_ITS | Clinical Summary ---
Author Organization [employer] Address [id number] [address] [place] [address] Care Team Providers Care Dermatologist Managing Partner Name Role Phone Severiano Barbour CONTINUOUS LINTER DRIER OPERATOR-MORTGAGE LOAN SPECIALIST Primary Care Provider + Allergies Active Allergy Reactions Criticality Noted Date Comments Peanut 07/16/2019 Promethazine 03/27/2016 Medications omeprazole (PriLOSEC) 20 mg capsuleIndicatio ns:Gastroesophag eal reflux disease without esophagitis TAKE 1 CAPSULE (20 MG TOTAL) BY MOUTH IN THE MORNING 90 capsule 3 Active albuterol (PROVENTIL HFA;VENTOLIN HFA) 90 mcg/actuation inhalerIndicatio ns:SOB (shortness of breath) Inhale 2 puffs every 6 (six) hours as needed for wheezing. 18 g 11 4 Active ergocalciferol (DRISDOL) 1,250 mcg (50,000 unit) capsuleIndicatio ns:Vitamin D deficiency TAKE 1 CAPSULE BY MOUTH ONCE WEEKLY 4 capsule 1 4 Active nystatin (MYCOSTATIN) powderIndication s:Yeast infection Apply 1 Application topically in the morning and 1 Application at noon and 1 Application in the evening and 1 Application before bedtime. 60 g 4 Active lisinopriL (PRINIVIL,ZESTRI L) 5 mg tabletIndication s:Primary hypertension Take 1 tablet (5 mg total) by mouth in the morning. 30 tablet 11 4 Active buPROPion (WELLBUTRIN) 75 mg tabletIndication s:Anxiety Take 1 tablet (75 mg total) by mouth in the morning and 1 tablet (75 mg total) before bedtime. 180 tablet 5 Active hydroCHLOROthiaz mara (MICROZIDE) 12.5 mg capsule Take 1 capsule (12.5 mg total) by mouth every morning. 90 capsule 1 5 Active phentermine (ADIPEX-P) 37.5 mg tabletIndication s:Well adult exam,Class 1 obesity due to excess calories with serious comorbidity and body mass index (BMI) of 30.0 to 30.9 in adult Take 1 tablet (37.5 mg total) by mouth every morning before breakfast. 30 tablet 5 Active Active Problems Problem Noted Date Diagnosed Date Endometriosis 07/16/2019 Polycystic ovarian disease 07/16/2019 Gastroesophageal reflux disease without esophagi tis 07/16/2019 Encounters Date Type Department Care Team Description 10/24/2024 Orders Only [facility] [place] [id number] [place] [id number] Severiano Barbour APRN-CNP Acute cystitis with hematuria (Primary Dx) 10/22/2024 10:45 AM EDT Clinical Support [facility] [address] [place] [phone] Severiano Barbour APRN-CNP Frequent urination (Primary Dx); Well adult exam; Class 1 obesity due to excess calories with serious comorbidity and body mass index (BMI) of 30.0 to 30.9 in adult 10/21/2024 Travel 09/24/2024 9:15 AM EDT Office Visit [facility] [place] [id number] [place] [phone] Severiano Barbour APRN-CNP Well adult exam (Primary Dx); Encounter for screening for cardiovascular disorders; Class 1 obesity due to excess calories with serious comorbidity and body mass index (BMI) of 30.0 to 30.9 in adult 09/23/2024 Travel from Last 3 Months Immunizations Immunization Administration Dates Next Due COVID-19, mRNA, LNP-S, PF, 100mcg/0.5mL Dose 04/2021,05/19/2020 Family History Medical History Relation Name Comments Alcohol abuse Brother Drug abuse Brother Alcohol abuse Father Breast cancer Maternal Aunt Breast cancer Maternal Grandmother Diabetes Mother Relation Name Status Comments Brother Father Maternal Aunt Maternal Grandmother Mother Social History Tobacco Use Types Packs/Day Years Used Date Smoking Tobacco: Former Cigarettes Q uit: 02/11/2013 Smokeless Tobacco: Never Tobacco Cessation:Counseling Given: Not Answered Alcohol Use Standard Drinks/Week Comments Not Currently [...] on file Sexual Orientation Not on file Last Filed Vital Signs Vital Sign Reading Time Taken Comments Blood Pressure 124/78 10/22/2024 10:33 AM EDT Pulse 102 10/22/2024 10:33 AM EDT Temperature 36.2 C (97.1 F) 08/13/2020 9:03 AM EDT Respiratory Rate 16 12/01/2015 12:30 PM EDT Oxygen Saturation 96% 10/22/2024 10:33 AM EDT Inhaled Oxygen Concentration - - Weight 68 kg (150 lb) 10/22/2024 10:33 AM EDT Height 152.4 cm (5') 10/22/2024 10:33 AM EDT Body Mass Index 29.29 10/22/2024 10:33 AM EDT Plan of Treatment Health Maintenance Due Date Last Done Comments COVID-19 Vaccine (2023-2 5 season) 2024 04/22/2021, 06/25/2020, 05/19/2020 DTaP,Tdap and Td Vaccines (6 - Td or Tdap) 08/14/2024 08/14/2014, 02/24/2003, 04/26/1987, Additional history exists Influenza Vaccine 01/12/2025 03/11/2024, , 03/18/2020, Additional history exists Adult BMI Follow Up Plan 09/24/2025 09/24/2024 Depression Screening 09/24/2025 09/24/2024 Tobacco Screening 09/24/2025 09/24/2024 Adult BMI Screening 10/22/2025 10/22/2024 Pap Smear 05/09/2026 05/09/2023 Medical Devices Not on file Procedures Procedure Name Priority Date/Time Associated Diagnosis Comments POCT URINALYSIS DIPSTICK ONLY Routine 10/22/2024 10:55 AM EDT Frequent urination URINE CULTURE Routine 10/22/2024 10:54 AM EDT Frequent urination MAGNESIUM Routine 10/22/2024 10:19 AM EDT Well adult exam TSH WITH REFLEX Routine 10/22/2024 10:19 AM EDT Well adult exam LIPID PROFILE Routine 10/22/2024 10:19 AM EDT Well adult exam Encounter for screening for cardiovascular disorders COMPREHENSIVE METABOLIC PANEL Routine 10/22/2024 10:19 AM EDT Well adult exam CBC WITH AUTO DIFFERENTIAL Routine 10/22/2024 10:19 AM EDT Well adult exam from Last 3 Months Results * (ABNORMAL) POCT urinalysis dipstick only (10/22/2024 10:55 AM EDT) External Poct Urine Color light yellow MANUALLY TRANSCRIBED RESULTS External Poct Urine Character clear MANUALLY TRANSCRIBED RESULTS External Poct Urine Glucose Negative MANUALLY TRANSCRIBED RESULTS External Poct Urine Bilirubin Negative MANUALLY TRANSCRIBED RESULTS External Poct Urine Ketones Negative MANUALLY TRANSCRIBED RESULTS External Poct Urine Specific [place] 1.020 MANUALLY TRANSCRIBED RESULTS External Poct Urine Blood 1+ MANUALLY TRANSCRIBED RESULTS External Poct Urine Ph 6.0 MANUALLY TRANSCRIBED RESULTS External Poct Urine Protein Negative MANUALLY TRANSCRIBED RESULTS External Poct Urine Urobilinogen 0.2 MANUALLY TRANSCRIBED RESULTS External Poct Urine Nitrite Negative MANUALLY TRANSCRIBED RESULTS External Poct Urine Leukocyte Esterase Trace MANUALLY TRANSCRIBED RESULTS Urine 10/22/2024 10:5 5 AM EDT Severiano Barbour CONTINUOUS LINTER DRIER OPERATOR-MORTGAGE LOAN SPECIALIST POINT OF CARE TEST ORDER YOSELYN Final Result MANUALLY TRANSCRIBED RESULTS * (ABNORMAL) Urine culture (clean catch) (10/22/2024 10:54 AM EDT) CULTURE RESULTS >100,000 CFU/mL Escherichia coli(A) 10/24/2024 7:33 AM EDT [facility] Urine Urine specimen collection, clean catch / Unknown 10/22/2024 10:54 AM EDT 10/22/2024 10:54 AM EDT Narrative Organism Antibiotic Method Susceptibility Escherichia coli Ampicillin <=2.0: Susceptible Escherichia coli AMP/SULBACTAM <=2.0: Susceptible Escherichia coli PIPERACIL/TAZOBACTAM <=4.0: Susceptible Escherichia coli Cefazolin (non-urinary) <=1.0: Susceptible Escherichia coli Cefazolin (urinary) <=1.0: Susceptible Escherichia coli Ceftriaxone <=0.25: Susceptible Escherichia coli Gentamicin <=1.0: Susceptible Escherichia coli Ciprofloxacin <=0.06: Susceptible Escherichia coli Levofloxacin <=0.12: Susceptible Escherichia coli Nitrofurantoin <=16.0: Susceptible Escherichia coli Trimethoprim + Sulfamethoxazole <=1.0: Susceptible us Foluso Alamina CONTINUOUS LINTER DRIER OPERATOR-MORTGAGE LOAN SPECIALIST MICROBIOLOGY - GENERAL O RDERABLES Final Result [facility] [address] [place] [address], * TSH with Reflex (10/22/2024 10:19 AM EDT) TSH 3.76 0.49 - 4.67 uIU/mL 10/22/2024 1:18 PM EDT [facility] Blood Venous blood / Unknown Venipuncture / Unknown 10/22/2024 10:19 AM EDT 10/22/2024 10:20 AM EDT us Foluso Alamina CONTINUOUS LINTER DRIER OPERATOR-MORTGAGE LOAN SPECIALIST LAB BLOOD ORDERABLES Fin al Result [facility] [address] [place] [address], * CBC auto differential (10/22/2024 10:19 AM EDT) WBC 7.8 4 - 11 x10E9/L 10/22/2024 12:56 PM EDT [facility] RBC Count 4.54 3.8 - 5.2 X10E12/L 10/22/2024 12:56 PM EDT [facility] Hemoglobin 14.1 11.7 - 15.5 g/dL 10/22/2024 12:56 PM EDT [facility] Hematocrit 40.4 35 - 47 % 10/22/2024 12:56 PM EDT [facility] MCV 89 80 - 100 fL 10/22/2024 12:56 PM EDT [facility] MCH 31.1 27 - 34 pg 10/22/2024 12:56 PM EDT [facility] MCHC 34.9 32 - 36 g/dL 10/22/2024 12:56 PM EDT [facility] RDW 12.6 11.5 - 15 % 10/22/2024 12:56 PM EDT [facility] Platelet Count 346 150 - 450 X10E9/L 10/22/2024 12:56 PM EDT [facility] MPV 8.2 7 - 12 fL 10/22/2024 12:56 PM EDT [facility] Neutrophils % 63.2 % 10/22/2024 12:56 PM EDT [facility] Lymphocytes % 26.0 % 10/22/2024 12:56 PM EDT [facility] Monocytes % 7.7 % 10/22/2024 12:56 PM EDT [facility] Eosinophils % 2.6 % 10/22/2024 12:56 PM EDT [facility] Basophils % 0.5 % 10/22/2024 12:56 PM EDT [facility] Neutrophils Absolute (A) 4.9 1.5 - 6.6 10*3/uL 10/22/2024 12:56 PM EDT [facility] Lymphocytes Absolute 2.0 1.0 - 3.5 10*3/uL 10/22/2024 12:56 PM EDT [facility] Monocytes Absolute 0.6 0.0 - 0.9 10*3/uL 10/22/2024 12:56 PM EDT [facility] Eosinophils Absolute 0.2 0.0 - 0.4 10*3/uL 10/22/2024 12:56 PM EDT [facility] Basophils Absolute 0.0 0.0 - 0.2 10*3/uL 10/22/2024 12:56 PM EDT [facility] Differential Type AUTOMATED DIFFERENTIAL 10/22/2024 12:56 PM T [facility] Blood Venous blood / Unknown Venipuncture / Unknown 10/22/2024 10:19 AM EDT 10/22/2024 10:20 AM EDT [employer] CONTINUOUS LINTER DRIER OPERATOR-MORTGAGE LOAN SPECIALIST LAB BLOOD ORDERABLES Fin al Result [facility] [address] [place] [address], [place] [phone] * Magnesium (10/22/2024 10:19 AM EDT) MAGNESIUM 1.8 1.8 - 2.6 mg/dL 10/22/2024 1:13 PM EDT [facility] Blood Venous blood / Unknown Venipuncture / Unknown 10/22/2024 10:19 AM EDT 10/22/2024 10:20 AM EDT [employer] CONTINUOUS LINTER DRIER OPERATOR-MORTGAGE LOAN SPECIALIST LAB BLOOD ORDERABLES Fin al Result Performing Organization Address City/[facility]/ZIP Co de Phone Number [facility] [address] [place] [address], [place] [phone] * (ABNORMAL) Lipid profile (10/22/2024 10:19 AM EDT) CHOLESTEROL 201(H) 150 - 200 mg/dL 10/22/2024 1:13 PM EDT [facility] TRIGLYCERIDE 120 27 - 150 mg/dL 10/22/2024 1:13 PM EDT [facility] HDL CHOLESTEROL 50 >39 mg/dL 5 1:13 PM EDT [facility] Comment: HDL <40 mg/dL - High Risk HDL > or = 40mg/dL- Desirable HDL >60 mg/dL - Negative Risk LDL (CALC) 127 <130 mg/dL 10/22/2024 1:13 PM EDT [facility] Comment: LDL <100 mg/dL - Desirable LDL >160 mg/dL - High Risk CHOLESTEROL:HDL 4.0 1.0 - 5.0 5 1:13 PM EDT [facility] VERY LOW LIPOPROTEIN 24 0 - 30 mg/dL 10/22/2024 1:13 PM EDT [facility] Blood Venous blood / Unknown Venipuncture / Unknown 10/22/2024 10:19 AM EDT 10/22/2024 10:20 AM EDT us Severiano Barbour CONTINUOUS LINTER DRIER OPERATOR-MORTGAGE LOAN SPECIALIST LAB BLOOD ORDERABLES Fin al Result [facility] [address] [place] [address], * (ABNORMAL) Comprehensive metabolic panel (10/22/2024 10:19 AM EDT) SODIUM 136 134 - 146 mmol/L 10/22/2024 1:13 PM EDT [facility] POTASSIUM 3.6 3.5 - 5.0 mmol/L 10/22/2024 1:13 PM EDT [facility] CHLORIDE 100 98 - 109 mmol/L 10/22/2024 1:13 PM EDT [facility] CARBON DIOXIDE 28 22 - 32 mmol/L 10/22/2024 1:13 PM EDT [facility] ANION GAP 8 5 - 15 mmol/L 10/22/2024 1:13 PM EDT [facility] BLOOD UREA NITROGEN 17 5 - 23 mg/dL 10/22/2024 1:13 PM EDT [facility] CREATININE 0.73 0.40 - 1.00 mg/dL 10/22/2024 1:13 PM EDT [facility] Comment:METHOD TRACEABLE TO IDMS STANDARD GLUCOSE 112(H) 65 - 99 mg/dL 10/22/2024 1:13 PM EDT [facility] CALCIUM 10.0 8.5 - 10.5 mg/dL 10/22/2024 1:13 PM EDT [facility] TOTAL PROTEIN 7.7 6.0 - 8.0 g/dL 10/22/2024 1:13 PM EDT [facility] ALBUMIN 4.8 3.2 - 5.3 g/dL 10/22/2024 1:13 PM EDT [facility] ALKALINE PHOSPHATASE 67 39 - 130 U/L 10/22/2024 1:13 PM EDT [facility] AST 17 <=41 U/L 10/22/2024 1:13 PM EDT [facility] ALT 29 <=31 U/L 10/22/2024 1:13 PM EDT [facility] BILIRUBIN,TOTAL 0.6 0.3 - 1.2 mg/dL 10/22/2024 1:13 PM EDT [facility] EGFR Non-Race Dependent >90 >=60 ml/min/1.7 3sq.m 10/22/2024 1:13 PM EDT [facility] Comment: Reported eGFR is based on the CKD-EPI 2020 equation that does not use a race coefficient. Blood Venous blood / Unknown Venipuncture / Unknown 10/22/2024 10:19 AM EDT 10/22/2024 10:20 AM EDT us Severiano Barbour CONTINUOUS LINTER DRIER OPERATOR-MORTGAGE LOAN SPECIALIST LAB BLOOD ORDERABLES Fin al Result [facility] [address] [place] [address], from Last 3 Months Insurance [facility] Care Teams Dermatologist Managing Partner Relationship Specialty Start Date End Date Severiano Barbour APRN-CNP [address] [place] [address] PCP - General Family Medicine 09/20/22
--- OUTSIDE RECORDS SUMMARY | 2024-12-11 07:51 | XMS_ITS | Encounter Summary ---
Author Organization [employer] Address [id number] [address] [place] [address] Care Team Providers Care Picker Operator Name Role Phone Severiano Barbour LAB INTERN-SUPERVISOR STERILE PROCESSING Primary Care Provider + Encounter Details Date Type Department Care Team (Late st Contact Info) Description 03/23/2020 Orders Only [facility] [address] [facility] [address] [place] [phone] Denise Onofre, LAB INTERN-SUPERVISOR STERILE PROCESSING [address] [facility] [place] [address] Suspected COVID-19 virus infection Social History Tobacco Use Types Packs/Day Years Used Date Smoking Tobacco: Former Cigarettes Q uit: 02/11/2013 Smokeless Tobacco: Never Alcohol Use Standard Drinks/Week Comments Not Currently 0 (1 standard drink = 0.6 oz pur e alcohol) PHQ-2 Answer Date Recorded PHQ-2 Score 0 07/16/2019 Childcare Answer Date Recorded Childcare Unknown 10/21/2018 Employment Answer Date Recorded Employment Unknown 10/21/2018 Comments No Sex and Gender Information Value Date Recorded Sex Assigned at Not on file Legal Sex Female 12:24 PM EDT Gender Identity Not on file Sexual Orientation Not on file COVID-19 Exposure Response Date Recorded In the last month, have you been in contact with someone who was confirmed or suspected to have Coronavirus / COVID-19? No / Unsure 03/23/2020 11:14 AM EST documented as of this encounter Plan of Treatment Not on file documented as of this encounter Visit Diagnoses Diagnosis Suspected COVID-19 virus infection documented in this encounter Additional Health Concerns Infection Onset Date Last Indicated Resolved Time COVID-19 Rule-Out 03/23/2020 03/23/2020 03/24/2020 12:59 PM EST COVID-19 Positive 03/23/2020 03/23/2020 04/13/2020 11:14 PM EST Assessment Noted Time PHQ-9 Depression Total Score: 0 07/16/19 20 10:18 AM EST A Body Mass Index follow-up plan has been documented for the patient 07/16/2019 10:54 AM EST documented as of this encounter Care Teams Picker Operator Relationship Specialty Start Date End Date Severiano Barbour APRN-MELISSA [address] [place] [address] PCP - General Family Medicine 09/20/22 documented as of this encounter
--- OUTSIDE RECORDS SUMMARY | 2024-12-11 07:52 | XMS_ITS | Encounter Summary ---
Author Organization [facility] tem Address [id number] [place] [address] Care Team Providers Care Plastic Sheeting Cutter Name Role Phone Severiano Barbour GLOBAL COMPENSATION DIRECTOR-LABORER MARINE TERMINAL Primary Care Provider + Encounter Details Date Type Department Care Team (Late st Contact Info) Description 07/03/2022 Orders Only [facility] [address] [place] [address] Laura Beltre, Well adult exam; Fatigue, unspecified type; Vitamin D deficiency; Encounter for screening for cardiovascular disorders Social History Tobacco Use Types Packs/Day Years Used Date Smoking Tobacco: Former Cigarettes Q uit: 02/11/2013 Smokeless Tobacco: Never Alcohol Use Standard Drinks/Week Comments Not Currently 0 (1 standard drink = 0.6 oz pur e alcohol) PHQ-2 Answer Date Recorded Total Score 0 06/14/2022 Childcare Answer Date Recorded Childcare Unknown 10/21/2018 [...] have Coronavirus / COVID-19? No / Unsure 06/14/2022 10:19 AM EST documented as of this encounter Plan of Treatment Not on file documented as of this encounter Procedures Procedure Name Priority Date/Time Associated Diagnosis Comments CBC WITH AUTO DIFFERENTIAL Routine 07/03/2022 10:30 AM EST Well adult exam VITAMIN D 25 HYDROXY Routine 07/03/2022 10:30 AM EST Vitamin D deficiency MAGNESIUM Routine 07/03/2022 10:30 AM EST Well adult exam HEMOGLOBIN A1C Routine 07/03/2022 10:30 AM EST Well adult exam VITAMIN B12 Routine 07/03/2022 10:30 AM EST Well adult exam Fatigue, unspecified type LIPID PROFILE Routine 07/03/2022 10:30 AM EST Well adult exam Encounter for screening for cardiovascular disorders COMPREHENSIVE METABOLIC PANEL Routine 07/03/2022 10:30 AM EST Well adult exam documented in this encounter Results * CBC auto differential (07/03/2022 10:30 AM EST) White Blood Cells 9.9 4.0 - 11.0 X10E9/L 07/03/2022 4:55 PM [facility] RBC count 4.89 3.80 - 5.20 X10E12/L 07/03/2022 4:55 PM [facility] Hemoglobin 14.5 11.7 - 15.5 g/dL 07/03/2022 4:55 PM [facility] Hematocrit 43.5 35 - 47 % 07/03/2022 4:55 PM [facility] MCV 89 80 - 100 fL 07/03/2022 4:55 PM [facility] MCH 29.7 27 - 34 pg 07/03/2022 4:55 PM [facility] MCHC 33.3 32 - 36 g/dL 07/03/2022 4:55 PM [facility] RDW 12.8 11.5 - 15.0 % 07/03/2022 4:55 PM [facility] Platelets 413 150 - 450 X10E9/L 07/03/2022 4:55 PM [facility] MPV 8.2 7 - 12 fL 07/03/2022 4:55 PM [facility] % neutrophils 56.1 % 07/03/2022 4:55 PM [facility] % lymphocytes 34.1 % 07/03/2022 4:55 PM [facility] % monocytes 6.2 % 07/03/2022 4:55 PM [facility] % eosinophils 2.9 % 07/03/2022 4:55 PM [facility] % Basophils 0.7 % 07/03/2022 4:55 PM [facility] Neutrophils Absolute (A) 5.6 1.5 - 6.6 X10E9/L 07/03/2022 4:55 PM [facility] Lymphocytes Absolute 3.4 1.0 - 3.5 X10E9/L 07/03/2022 4:55 PM [facility] Monocytes Absolute 0.6 0 - 0.9 X10E9/L 07/03/2022 4:55 PM [facility] Eosinophils Absolute 0.3 0.0 - 0.4 X10E9/L 07/03/2022 4:55 PM [facility] Basophils Absolute 0.1 0.0 - 0.2 X10E9/L 07/03/2022 4:55 PM [facility] Blood / Unknown 07/03/2022 1 0:30 AM EST 07/03/2022 4:49 PM EST us Severiano Barbour GLOBAL COMPENSATION DIRECTOR-LABORER MARINE TERMINAL LAB BLOOD ORDERABLES Fin al Result [facility] [address], [place] [address] * (ABNORMAL) Comprehensive metabolic panel (07/03/2022 10:30 AM EST) Sodium 136 134 - 146 mmol/L 07/03/2022 5:03 PM [facility] Potassium, Bld 3.4(L) 3.5 - 5.0 mmol/L 07/03/2022 5:03 PM [facility] Chloride 99 98 - 109 mmol/L 07/03/2022 5:03 PM [facility] CO2 26 22 - 32 mmol/L 07/03/2022 5:03 PM [facility] Anion gap 11 5 - 15 mmol/L 07/03/2022 5:03 PM [facility] BUN 18 5 - 23 mg/dL 07/03/2022 5:07 PM [facility] Creatinine 0.63 0.40 - 1.00 mg/dL 07/03/2022 5:07 PM [facility] Comment:METHOD TRACEABLE TO IDMS STANDARD Glucose 95 65 - 99 mg/dL 07/03/2022 5:03 PM [facility] Calcium 9.9 8.5 - 10.5 mg/dL 07/03/2022 5:03 PM [facility] Total Protein 8.4(H) 6.0 - 8.0 g/dL 07/03/2022 5:07 PM [facility] Albumin 4.9 3.2 - 5.3 g/dL 07/03/2022 5:07 PM [facility] Alkaline Phosphatase 79 39 - 130 U/L 07/03/2022 5:07 PM [facility] AST 32 0 - 41 U/L 07/03/2022 5:07 PM [facility] ALT 58(H) 0 - 31 U/L 07/03/2022 5:07 PM [facility] Total bilirubin 0.4 0.3 - 1.2 mg/dL 07/03/2022 5:07 PM [facility] eGFR (CKD-EPI)non-rac e dependent >90 >59 ml/min/1.7 3sq.m 07/03/2022 5:07 PM [facility] Comment: Reported eGFR is based on the CKD-EPI 2020 equation that does not use a race coefficient. PLASMA 07/03/2022 10:3 0 AM EST 07/03/2022 4:49 PM EST us Foluso Alamina GLOBAL COMPENSATION DIRECTOR-LABORER MARINE TERMINAL LAB BLOOD ORDERABLES Fin al Result [facility] [address], [place] [address] * (ABNORMAL) Lipid profile (07/03/2022 10:30 AM EST) Cholesterol 188 150 - 200 mg/dL 07/03/2022 10:20 PM [facility] Triglycerides 157(H) 27 - 150 mg/dL 07/03/2022 10:20 PM [facility] HDL Cholesterol 43 >39 mg/dL 10:20 PM [facility] Comment: HDL <40 mg/dL - High Risk HDL > or = 40mg/dL- Desirable HDL >60 mg/dL - Negative Risk VLDL 31(H) 0 - 30 mg/dL 07/03/2022 10:20 PM [facility] LDL (calc) 114 <130 mg/dL 07/03/2022 10:20 PM [facility] Comment: LDL <100 mg/dL - Desirable LDL >160 mg/dL - High Risk Cholesterol:HDL Ratio 4.4 1.0 - 5.0 07/03/2022 10:20 PM [facility] PLASMA 07/03/2022 10:3 0 AM EST 07/03/2022 4:49 PM EST us FolSquarespaceo Alamina GLOBAL COMPENSATION DIRECTOR-LABORER MARINE TERMINAL LAB BLOOD ORDERABLES Fin al Result [facility] [address] [place] [address] * Magnesium (07/03/2022 10:30 AM EST) Magnesium 1.8 1.8 - 2.6 mg/dL 07/03/2022 5:07 PM EST [facility] PLASMA 07/03/2022 10:3 0 AM EST 07/03/2022 4:49 PM EST Tri[employer]as DE LA TORRENPortfoliaLABORER MARINE TERMINAL LAB BLOOD ORDERABLES Fin al Result [address] [place] [address] * Hemoglobin A1c (07/03/2022 10:30 AM EST) Hemoglobin A1C 5.7 4.4 - 6.4 % 07/03/2022 10:14 PM EST [facility] Average glucose 117 mg/dL 10:14 PM EST [employer] Blood (PLASMA) 07/03/2022 10 :30 AM EST 07/03/2022 4:49 PM EST Triangulatesilas [facility] LAB BLOOD ORDERABLES Fin al Result [facility] * (ABNORMAL) Vitamin D 25 hydroxy (07/03/2022 10:30 AM EST) Vit D, 25-Hydroxy 18.1(L) 30 - 100 ng/mL 07/03/2022 10:45 PM EST [facility] Comment: Vitamin D status 25 [place] Vitamin D Deficiency <20 ng/mL Insufficiency 20-29 ng/mL Sufficiency 30-100 ng/mL Toxicity >100 ng/mL NOTE: A pediatric reference range has not been established by the weapons officer naval activity of this kit. The [place] [employer] recommends a Vitamin D level of = or >20ng/mL in infants and children. Blood (PLASMA) 07/03/2022 10 :30 AM EST 07/03/2022 4:49 PM EST us Severiano Barbour APRN-LABORER MARINE TERMINAL LAB BLOOD ORDERABLES Fin al Result Performing Organization Address City/[facility]/ZIP Co de Phone Number [facility] [address] [place] [address] * Vitamin B12 (07/03/2022 10:30 AM EST) Pathologist [facility] Vitamin B-12 788 180 - 914 pg/mL 07/03/2022 10:43 PM EST [facility] Blood Serum / Unknown 07/03/2022 1 0:30 AM EST 07/03/2022 4:49 PM EST Severiano Barbour APRN-LABORER MARINE TERMINAL LAB BLOOD ORDERABLES Fin al Result Performing Organization Address City/[facility] Co de Phone Number [facility] [address] [place] [address] documented in this encounter Visit Diagnoses Diagnosis Well adult exam Routine general medical examination at a health care facility Fatigue, unspecified type Vitamin D deficiency Encounter for screening for cardiovascular disorders documented in this encounter Additional Health Concerns Assessment Noted Time PHQ-9 Depression Total Score: 0 06/14/19 10:29 AM EST A Body Mass Index follow-up plan has been documented for the patient 06/14/2022 11:18 AM EST documented as of this encounter Care Teams Plastic Sheeting Cutter Relationship Specialty Start Date End Date Severiano Barbour APRN-CNP [address] [place] [address] PCP - General Family Medicine 09/20/22 documented as of this encounter
--- OUTSIDE RECORDS SUMMARY | 2024-12-11 07:52 | XMS_ITS | Encounter Summary ---
Author Organization [email or web address] tem Address [id number] [address] [place] [address] Care Team Providers Care Director Patient Accounting Name Role Phone Severiano Barbour DEPLOYMENT ENGINEER-SAMPLE CARRIER Primary Care Provider + Encounter Details Date Type Department Care Team (Late st Contact Info) Description 08/17/[address] [facility] [address] [place] [id number] [address] CMA Social History Tobacco Use Types Packs/Day Years Used Date Smoking Tobacco: Former Cigarettes Q uit: 02/11/2013 Smokeless Tobacco: Never Alcohol Use Standard Drinks/Week Comments Not Currently 0 (1 standard drink = 0.6 oz pur e alcohol) PHQ-2 Answer Date Recorded Total Score 0 01/14/2021 Childcare Answer Date Recorded Childcare Unknown 10/21/2018 Employment Answer Date Recorded Employment Unknown 10/21/2018 Purpose - Life Answer Date Recorded Purpose and direction in life Unknown Comments No Sex and Gender Information Value Date Recorded Sex Assigned at Not on file Legal Sex Female 12:24 PM EDT Gender Identity Not on file Sexual Orientation Not on file documented as of this encounter Miscellaneous Notes * Telephone Encounter - Samantha Sidhu CMA - 08/17/2021 9:14 AM EDT Marla with Mammogram Dept called stating that if patient is having breast pain the mammogram orderneeds to be changed to diagnostic mammogram. She was also questioning if patient has history of breast cancer. I looked and did not see anything in her chart regarding this. Please Advise. * Telephone Encounter - TRIPP Melton - 08/17/2021 9:14 AM EDT Diagnostic mammogram ordered for patient * Telephone Encounter - Samantha Sidhu CMA - 08/17/2021 9:14 AM EDT Noted documented in this encounter Plan of Treatment Not on file documented as of this encounter Results * (ABNORMAL) Mammography diagnostic bilateral with CAD (08/30/2021 3:21 PM EDT) Anatomical Region Laterality Modality Breast Bilateral Mammography 08/30/2021 3:22 PM EDT Narrative 08/30/2021 4:00 PM EDT BILATERAL DIGITAL DIAGNOSTIC MAMMOGRAM with tomosynthesis and BILATERAL BREAST ULTRASOUND 08/30/2021 COMPARISON: None available CLINICAL INDICATION: Focal pain along the 10 to 11:00 position right breast, no palpable abnormality. . FINDINGS: Heterogeneously dense, which may obscure small masses. Right breast: Biopsy clip upper outer quadrant no abnormality. There is a subtle hypoechoic mass at the 10:00 position of the breast incidentally noted measuring 9 x 4 x 11 mm. This is wider than tall and demonstrates hypoechoic echogenicity. This may reflect a small fibroadenoma. Adjacent small breast cyst measuring 4 mm. Left breast: Focal asymmetry left breast upper outer quadrant, may reflect dense fibroglandular tissue underlying cyst. No sonographic abnormality corresponding to the focal asymmetry left breast. Computer-aided detection was used in the interpretation of this examination. IMPRESSION: 1. Probably benign. BI-RADS Category 3. Recommend 6 month ultrasound follow-up for right breast mass. Finalized by Ezequiel Hook MD on 08/30/2021 4:00 PM 3 c US 6 MONTH Procedure Note Ezequiel Hook MD - 08/30/2021 BILATERAL DIGITAL DIAGNOSTIC MAMMOGRAM with tomosynthesis and BILATERALBREAST ULTRASOUND 08/30/2021 COMPARISON: None available CLINICAL INDICATION: Focal pain along the 10 to 11:00 position rightbreast, no palpable abnormality. . FINDINGS: Heterogeneously dense, which may obscure small masses. Right breast: Biopsy clip upper outer quadrant no abnormality. There is a subtle hypoechoic mass at the 10:00 position of the breastincidentally noted measuring 9 x 4 x 11 mm. This is wider than tall anddemonstrates hypoechoic echogenicity. This may reflect a smallfibroadenoma. Adjacent small breast cyst measuring 4 mm. Left breast: Focal asymmetry left breast upper outer quadrant, may reflect densefibroglandular tissue underlying cyst. No sonographic abnormality corresponding to the focal asymmetry leftbreast. Computer-aided detection was used in the interpretation of thisexamination. IMPRESSION: 1. Probably benign. BI-RADS Category 3. Recommend 6 month ultrasoundfollow-up for right breast mass. Finalized by Ezequiel Hook MD on 08/30/2021 4:00 PM 3 c US 6 MONTH us Denise ALMAGUER IMG MAMMOGRAPHY OR DERABLES Final Result documented in this encounter Visit Diagnoses Diagnosis Breast pain, right- Primary Breast pain, right documented in this encounter Additional Health Concerns Assessment Noted Time PHQ-9 Depression Total Score: 0 01/15/20 21 8:59 AM EDT A Body Mass Index follow-up plan has been documented for the patient 01/14/2021 12:46 PM EDT documented as of this encounter Care Teams Director Patient Accounting Relationship Specialty Start Date End Date Severiano Barbour APRN-CNP [address] [place] [address] PCP - General Family Medicine 09/20/22 documented as of this encounter
--- OUTSIDE RECORDS SUMMARY | 2024-12-11 07:52 | XMS_ITS | Encounter Summary ---
Author Organization [facility] Address [address] [place] [address] Care Team Providers Care Associate Professor Name Role Phone Severiano Barbour MD Primary Care Provider [phone] Encounter Details Date Type Department Care Team (Late st Contact Info) Description 12/10/2024 Misaelo flowsheet [facility] [address] [place] [address] Dayana Middleton, ROBBIE [address] [place] [address] Social History Tobacco Use Types Packs/Day Years Used Date Smoking Tobacco: Never Assessed Comments No Sex and Gender Information Value Date Recorded Sex Assigned at Not on file Legal Sex Female 11:47 PM EDT Gender Identity Not on file Sexual Orientation Not on file documented as of this encounter Plan of Treatment Not on file documented as of this encounter Visit Diagnoses Not on filedocumented in this encounter Care Teams Associate Professor Relationship Specialty Start Date End Date Severiano Barbour MD PCP - General Family Medicine 05/09/23 documented as of this encounter
--- OUTSIDE RECORDS SUMMARY | 2024-12-11 07:52 | XMS_ITS | Clinical Summary ---
Author Organization [facility] Address [address] [place] [address] Care Team Providers Care Rn Rehab Name Role Phone Jen Eaton MD Primary Care Provider Unavailab le Allergies Active Allergy Reactions Criticality Noted Date Comments Promethazine Hcl Shortness of Breath 02/03/2008 Medications IMITREX 25 MG PO TABS Prn Active nortriptyline 25 MG PO CAPS take 1 Cap by mouth Daily. Active albuterol (PROVENTIL HFA) 108 (90 BASE) MCG/ACT IN AERSIndications :Asthma take 2 Puffs by inhalation Every 6 hours as needed. 1 inhaler 0 9 Active acetaminophen (TYLENOL) 325 MG PO tabletIndicatio ns:Pain in joint, ankle and foot,Injury, foot take 2 Tabs by mouth 2 times daily as needed. Active triamcinolone 0.5 % EX CREA by Topical route. Apply to affected area twice daily as directed for 2 weeks 30g 0 0 Active Vit-Fe Fumarate-FA (GNP VITAMINS) 28-0.8 MG PO TABS take 1 Tab by mouth daily. 30 Tab 6 0 Active folic acid 1 MG PO TABS take 1 Tab by mouth daily. 30 Tab 3 0 Active diphenhydrAMINE (BENADRYL) 25 MG PO CAPSIndications :Scabies take 1 Cap by mouth every 6 hours as needed. 30 Cap 0 1 Active Active Problems Problem Noted Date Diagnosed Date Lump or mass in breast 04/02/2008 Social History Tobacco Use Types Packs/Day Years Used Date Smoking Tobacco: Never Assessed Comments Unknown Sex and Gender Information Value Date Recorded Sex Assigned at Not on file Legal Sex Female 12:06 PM EST Gender Identity Not on file Sexual Orientation Not on file Last Filed Vital Signs Vital Sign Reading Time Taken Comments Blood Pressure 110/62 07/06/2010 9:23 AM EST Pulse 78 07/06/2010 9:23 AM EST Temperature 36.6 C (97.8 F) 07/06/2010 9:23 AM EST Respiratory Rate 16 07/06/2010 9:23 AM EST Oxygen Saturation - - Inhaled Oxygen Concentration - - Weight 50.8 kg (112 lb) 07/06/2010 9:23 AM EST Height 152.4 cm (5') 09/17/2009 8:48 AM EDT Body Mass Index 21.87 09/17/2009 8:48 AM EDT Plan of Treatment Health Maintenance Due Date Last Done Comments HEPATITIS C VIRUS SCREENING 1983 TETANUS 1983 HIV SCREENING DISCUSSION 1998 HEP B VACCINE (1 of 3 - 19+ 3-dose series) 2002 TDAP (ADULT) 2002 CERVICAL CANCER SCREENING DISCUSSION 01/09/2004 LIPID SCREENING 2023 MAMMOGRAM SCREENING DISCUSSION 2023 COVID-19 VACCINE ( - 2023-2 5 season) 2024 INFLUENZA VACCINE (#1) 2025 HPV VACCINE Aged Out No longer eligi ble based on patient's age to complete this topic PNEUMOCOCCAL VACCINE SERIES Aged Out No longer eligible based on patient's age to complete this topic Care Teams Rn Rehab Relationship Specialty Start Date End Date Jen Eaton MD PCP - General 02/03/08
--- OUTSIDE RECORDS SUMMARY | 2024-12-11 07:52 | XMS_ITS | Encounter Summary ---
Author Organization [employer] Address [id number] [address] [place] [address] Care Team Providers Care Wall Crane Operator Name Role Phone Severiano Barbour PATHOLOGY TECHNOLOGIST-SPEECH SCIENTIST Primary Care Provider + Encounter Details Date Type Department Care Team (Late st Contact Info) Description 07/11/2022 Orders Only [facility] [address] [place] [address] Severiano Barbour APRN-SPEECH SCIENTIST [address] [place] [address] Well adult exam; Fatigue, unspecified type Social History Tobacco Use Types Packs/Day Years Used Date Smoking Tobacco: Former Cigarettes Q uit: 02/11/2013 Smokeless Tobacco: Never Alcohol Use Standard Drinks/Week Comments Not Currently 0 (1 standard drink = 0.6 oz pur e alcohol) PHQ-2 Answer Date Recorded Total Score 0 07/12/2022 Childcare Answer Date Recorded Childcare Unknown 10/21/2018 [...] have Coronavirus / COVID-19? No / Unsure 07/12/2022 9:27 AM EST documented as of this encounter Plan of Treatment Not on file documented as of this encounter Visit Diagnoses Diagnosis Well adult exam Routine general medical examination at a health care facility Fatigue, unspecified type documented in this encounter Additional Health Concerns Assessment Noted Time PHQ-9 Depression Total Score: 0 06/14/19 10:29 AM EST A Body Mass Index follow-up plan has been documented for the patient 06/14/2022 11:18 AM EST documented as of this encounter Care Teams Wall Crane Operator Relationship Specialty Start Date End Date Severiano Barbour APRN-CNP [address] [place] [address] PCP - General Family Medicine 09/20/22 documented as of this encounter
--- OUTSIDE RECORDS SUMMARY | 2024-12-11 07:52 | XMS_ITS | Clinical Summary ---
Author Organization [facility] Address [address] [place] [address] Care Team Providers Care Tellers Supervisor Name Role Phone Severiano Barbour MD Primary Care Provider [phone] Allergies Active Allergy Reactions Criticality Noted Date Comments Promethazine Other 05/09/2023 muscle Medications buPROPion (Wellbutrin) 75 MG tablet Take 75 mg by mouth in the morning and 75 mg before bedtime. 3 Active lisinopril-hyd roCHLOROthiazi de 10-12.5 MG tablet Take 1 tablet by mouth in the morning. 3 Active phentermine (Adipex-P) 37.5 MG tablet Take 37.5 mg by mouth in the morning. Take before meals. Active Phentermine-To piramate (Qsymia) 3.75-23 MG capsule sustained-rele ase 24 hr Take 3.75 mg by mouth in the morning. 12/11/19 25 Discontinued Encounters Date Type Department Care Team Description 12/10/2024 1:00 PM EDT Office Visit [facility] [address] [address] Dayana Middleton NP Well woman exam with routine gynecological exam; Encounter for screening mammogram for malignant neoplasm of breast 12/10/2024 Bamboo flowsheet [facility] [address] [place] [address] Dayana Middleton NP from Last 3 Months Family History Medical History Relation Name Comments Cancer Maternal Grandmother Diabetes Maternal Grandmother Diabetes Mother Hypertension Mother Relation Name Status Comments Maternal Grandmother Mother Social History Tobacco Use Types Packs/Day Years Used Date Smoking Tobacco: Never Assessed Comments No Sex and Gender Information Value Date Recorded Sex Assigned at Not on file Legal Sex Female 11:47 PM EDT Gender Identity Not on file Sexual Orientation Not on file Last Filed Vital Signs Vital Sign Reading Time Taken Comments Blood Pressure 120/76 05/09/2023 11:57 AM EST Pulse - - Temperature - - Respiratory Rate - - Oxygen Saturation - - Inhaled Oxygen Concentration - - Weight 68.3 kg (150 lb 8 oz) 12/10/2024 1:02 PM EDT Height - - Body Mass Index - - Plan of Treatment Health Maintenance Due Date Last Done Comments HPV/Cotest 2013 Mammogram 12/24/2024 12/25/2023, 10/24/2022, 08/12 Influenza Vaccine (#1) 2025 , 03/08/2023, 03/18/2020, Additional history exists Cervical Cancer Screening 05/09/2026 Pap Smear 05/09/2026 05/09/2023 Procedures Procedure Name Priority Date/Time Associated Diagnosis Comments PAP SMEAR Routine 05/09/2023 12:00 AM EST from Last 3 Months or Most Recently Relevant to Health Maintenance Results * Pap Smear (05/09/2023 12:00 AM EST) Swab Cervical swab / Unknown us Yvan Rachael DO LAB CYTOLOGY ORDERABLES Final Re sult EXTERNAL LAB from Last 3 Months or Most Recently Relevant to Health Maintenance Insurance [facility] Care Teams Tellers Supervisor Relationship Specialty Start Date End Date Severiano Barbour MD PCP - General Family Medicine 05/09/23
--- OUTSIDE RECORDS SUMMARY | 2024-12-11 07:54 | XMS_ITS | CCD ---
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 Name Role Phone DR KIMANI CANO Admitting [...] Unavailable ALAMINA, FOLUSO Primary Care Unavailable Alamina [facility] ENGINEERS, Foluso Primary Care Provider Alamina [facility]-MELISSA, Foluso Primary Care Provider Km VAUGHAN Foluso Primary Care Provider Allergies Allergy Classification Reported Allergen(s) Allergy Type Date of Onset Reaction(s) Facility (2 sources) Levamisole Drug Allergy 09-25-2016 [facility] Repository (3 sources) peanut allergenic extract; Translations: [PEANUT] Drug Allergy 09-25-2016 [facility] Repository (2 sources) Tensas nut Drug allergy (disorder) 02-23-2017 [facility] Repository (20 sources) Promethazine; Translations: [PROMETHAZINE] Drug Allergy 03-27-2016 Other [facility] Repository (15 sources) peanut allergenic extract Drug Allergy 07-16-2019 [facility] Medications Current Medications Medication Drug Class(es) Dates Sig (Normalized) Sig (Original) [id number] 200 actuat albuterol 0.09 mg/actuat metered dose [...] yon 10-22-2024 External Poct Urine Bilirubin Negative [facility] External Poct Urine Blood 1+ [facility] External Poct Urine Character clear [facility] External Poct Urine Color light yellow [facility] External Poct Urine Glucose Negative [facility] External Poct Urine Ketones Negative [facility] External Poct Urine Leukocyte Esterase Trace [facility] External Poct Urine Nitrite Negative [facility] External Poct Urine Ph 6 [facility] External Poct Urine Protein Negative [facility] External Poct Urine Specific [place] 1.02 [facility] External Poct Urine Urobilinogen 0.2 [facility] Interpretation and review of laboratory results Abnormal [facility] MAMM DIAGNOSTIC BILATERAL W CADon 12-25-2023 MAMM [...] PM 2 c MAMM 1 YR Normal [facility] US BREAST RT LIMITEDon 12-24 [...] PM 2 c MAMM 1 YR Normal [facility] POCT Hemoglobin [id number] B y: Scott Khan on 12-12-2023 HbA1c (Bld) [Mass fraction] 5.4 g/dL 4 - 7 g/dL [facility] Interpretation and review of laboratory results Normal [facility] CBC AND AUTO DIFFon 11-01-19 ABSOLUTE BASOPHIL 0.1 X10E9/L Normal 0.0-0.2 [facility] Comment on above: Performed By: #### C BCA, CMP, 22552-9, , TSHR, 90651-0 #### [facility] ([id number]) [address], [address] [place] [address] ABSOLUTE NEUTROPHIL 4.9 X10E9/L Normal 1.5-6.6 [facility] Comment on above: Performed By: #### C BCA, CMP, 50021-4, , TSHR, 43205-8 #### [facility] ([id number]) [address], [address] [place] [address] Basophils/100 WBC (Bld) 0.6 % Normal [facility] Comment on above: Performed By: #### C BCA, CMP, , , TSHR, 54824-3 #### [facility] ([id number]) [address], [address] [place] [address] Eosinophils (Bld) [#/Vol] 0.3 10*3/uL Normal 0.0-0.4 [facility] Comment on above: Performed By: #### C BCA, CMP, , , TSHR, 94724-7 #### [facility] ([id number]) [address], [address] [place] [address] Eosinophils/100 WBC (Bld) 3.4 % Normal [facility] Comment on above: Performed By: #### C BCA, CMP, 23716-3, , TSHR, 84512-0 #### [facility] ([id number]) [address], [address] [place] [address] Erythrocyte distribution width (RBC) [Ratio] 13.1 % Normal 11.5-15.0 [facility] Comment on above: Performed By: #### C BCA, CMP, 88468-0, , TSHR, 71335-7 #### [facility] ([id number]) [address], [address] [place] [address] Hematocrit (Bld) [Volume fraction] 38.7 % Normal 35-47 [facility] Comment on above: Performed By: #### C BCA, CMP, , , TSHR, 09662-5 #### [facility] ([id number]) [address], [address] [place] [address] Hemoglobin (Bld) [Mass/Vol] 13.5 g/dL Normal 11.7-15.5 [facility] Comment on above: Performed By: #### C BCA, CMP, , , TSHR, 85941-2 #### [facility] ([id number]) [address] [address] [place] [address] Lymphocytes (Bld) [#/Vol] 2.5 10*3/uL Normal 1.0-3.5 [facility] Comment on above: Performed By: #### C BCA, CMP, , , TSHR, 35889-3 #### [facility] ([id number]) [address] [address] [address] [place] [address] Lymphocytes/100 WBC (Bld) 29.9 % Normal [facility] Comment on above: Performed By: #### C BCA, CMP, , , TSHR, 97615-9 #### [facility] ([id number]) [address] [address] [place] [address] MCH (RBC) [Entitic mass] 31.6 pg Normal 27-34 [facility] Comment on above: Performed By: #### C BCA, CMP, , , TSHR, 57690-8 #### [facility] ([id number]) [address], [address] [place] [address] MCHC (RBC) [Mass/Vol] 34.8 g/dL Normal 32-36 [facility] Comment on above: Performed By: #### C BCA, CMP, 40738-4, 32481-9, TSHR, 48515-6 #### [facility] ([id number]) [address], [address] [place] [address] MCV (RBC) [Entitic vol] 91 fL Normal 80-100 [facility] Comment on above: Performed By: #### C BCA, CMP, 10730-4, , TSHR, 06630-3 #### [facility] ([id number]) [address], [address] [place] [address] Monocytes (Bld) [#/Vol] 0.6 10*3/uL Normal 0-0.9 [facility] Comment on above: Performed By: #### C BCA, CMP, 08180-9, , TSHR, 11043-9 #### [facility] ([id number]) [address], [address] [place] [address] Monocytes/100 WBC (Bld) 7.3 % Normal [facility] Comment on above: Performed By: #### C BCA, CMP, 10729-3, , TSHR, 89792-9 #### [facility] ([id number]) [address], [address] [place] [address] Neutrophils/100 WBC (Bld) 58.8 % Normal [facility] Comment on above: Performed By: #### C BCA, CMP, 13593-8, , TSHR, 67490-9 #### [facility] ([id number]) [address], [address] [place] [address] Platelet mean volume (Bld) [Entitic vol] 8.2 fL Normal 7-12 [facility] Comment on above: Performed By: #### C BCA, CMP, 50002-3, 70914-3, TSHR, 45783-4 #### [facility] ([id number]) [address], [address] [place] [address] Platelets (Bld) [#/Vol] 321 10*3/uL Normal 150-450 [facility] Comment on above: Performed By: #### C BCA, CMP, 41185-9, 95114-4, TSHR, 86610-1 #### [facility] ([id number]) [address], [address] [place] [address] RBC COUNT 4.25 X10E12/L Normal 3.80-5.20 [facility] Comment on above: Performed By: #### C BCA, CMP, 32591-8, 10327-8, TSHR, 38533-6 #### [facility] ([id number]) [address], [address] [place] [address] WBC (Bld) [#/Vol] 8.3 10*3/uL Normal 4.0-11.0 [facility] Comment on above: Performed By: #### C BCA, CMP, 56636-7, 23659-7, TSHR, 12694-2 #### [facility] ([id number]) [address], [address] [place] [address] COMPREHENSIVE METABOLIC PANE Hemanth 11-01-2023 Albumin [Mass/Vol] 4.2 g/dL Normal 3.2-5.3 [facility] Comment on above: Performed By: #### C BCA, CMP, 03070-5, 98131-3, TSHR, 69296-8 #### [facility] ([id number]) [address], [address] [place] [address] ALP [Catalytic activity/Vol] 59 U/L Normal 39-130 [facility] Comment on above: Performed By: #### C BCA, CMP, 68163-5, 11517-8, TSHR, 75514-1 #### [facility] ([id number]) [address], [address] [place] [address] ALT [Catalytic activity/Vol] 24 U/L Normal 0-31 [facility] Comment on above: Performed By: #### C BCA, CMP, 42397-0, 42056-7, TSHR, 68436-8 #### [facility] ([id number]) [address], [address] [place] [address] Anion gap [Moles/Vol] 8 mmol/L Normal 5-15 [facility] Comment on above: Performed By: #### C BCA, CMP, 95904-4, , TSHR, 48551-5 #### [facility] ([id number]) [address], [address] [place] [address] AST [Catalytic activity/Vol] 18 U/L Normal 0-41 [facility] Comment on above: Performed By: #### C BCA, CMP, 02987-8, , TSHR, 92307-5 #### [facility] ([id number]) [address], [address] [place] [address] Bilirubin [Mass/Vol] 0.6 mg/dL Normal 0.3-1.2 [facility] Comment on above: Performed By: #### C BCA, CMP, 85225-8, , TSHR, 34808-4 #### [facility] ([id number]) [address], [address] [place] [address] Calcium [Mass/Vol] 9.1 mg/dL Normal 8.5-10.5 [facility] Comment on above: Performed By: #### C BCA, CMP, 23439-2, 51546-9, TSHR, 09859-4 #### [facility] ([id number]) [address], [address] [place] [address] Chloride [Moles/Vol] 107 mmol/L Normal 98-109 [facility] Comment on above: Performed By: #### C BCA, CMP, 69726-5, , TSHR, 81200-0 #### [facility] ([id number]) [address], [address] [place] [address] CO2 [Moles/Vol] 24 mmol/L Normal 22-32 [facility] Comment on above: Performed By: #### C BCA, CMP, 74407-8, , TSHR, 57675-8 #### [facility] ([id number]) [address], [address] [place] [address] Creatinine [Mass/Vol] 0.63 mg/dL Normal 0.40-1.00 [facility] Comment on above: Result Comment: METH OD TRACEABLE TO IDMS STANDARD Performed By: #### C BCA, CMP, , , TSHR, 67316-7 #### [facility] ([id number]) [address], [address] [place] [address] eGFR (CKD-EPI) NON-RACE DEPENDENT >90 Normal >59 [facility] Comment on above: Result Comment: Reported eGFR is based on the CKD-EPI 2020 equation that does not use a race coefficient. Performed By: #### C BCA, CMP, , , TSHR, 73458-2 #### [facility] ([id number]) [address], [address] [place] [address] Glucose [Mass/Vol] 110 mg/dL High 65-99 [facility] Comment on above: Performed By: #### C BCA, CMP, , , TSHR, 11807-0 #### [facility] ([id number]) [address], [address] [place] [address] Potassium [Moles/Vol] 3.9 mmol/L Normal 3.5-5.0 [facility] Comment on above: Performed By: #### C BCA, CMP, 39877-6, 84357-8, TSHR, 85655-4 #### [facility] ([id number]) [address], [address] [place] [address] Protein [Mass/Vol] 6.8 g/dL Normal 6.0-8.0 [facility] Comment on above: Performed By: #### C BCA, CMP, 63375-1, 76854-5, TSHR, 90105-2 #### [facility] ([id number]) [address], [address] [place] [address] Sodium [Moles/Vol] 139 mmol/L Normal 134-146 [facility] Comment on above: Performed By: #### C BCA, CMP, 04906-0, 24316-0, TSHR, 66104-2 #### [facility] ([id number]) [address], [address] [place] [address] Urea nitrogen [Mass/Vol] 20 mg/dL Normal 5-23 [facility] Comment on above: Performed By: #### C BCA, CMP, 56273-7, 23738-9, TSHR, 07046-8 #### [facility] ([id number]) [address], [address] [place] [address] Lipid 1996 panelon 4 Cholesterol [Mass/Vol] 180 mg/dL Normal 150-200 [facility] Comment on above: Performed By: #### C BCA, CMP, 59079-0, 37849-2, TSHR, 64263-7 #### [facility] ([id number]) [address], [address] [place] [address] Cholesterol in HDL [Mass/Vol] 58 mg/dL Normal >39 [facility] Comment on above: Result Comment: HDL <40 mg/dL - High Risk HDL > or = 40mg/dL- Desirable HDL >60 mg/dL - Negative Risk Performed By: #### C BCA, CMP, 38009-7, 55677-1, TSHR, 99236-3 #### [facility] ([id number]) [address], [address] [place] [address] Cholesterol in LDL [Mass/Vol] 106 mg/dL Normal <130 [facility] Comment on above: Result Comment: LDL <100 mg/dL - Desirable LDL >160 mg/dL - High Risk Performed By: #### C BCA, CMP, 77604-8, 18377-0, TSHR, 29994-4 #### [facility] ([id number]) [address], [address] [place] [address] Cholesterol in VLDL [Mass/Vol] 16 mg/dL Normal 0-30 [facility] Comment on above: Performed By: #### C BCA, CMP, 37925-5, 54160-0, TSHR, 59365-2 #### [facility] ([id number]) [address], [address] [place] [address] CHOLESTEROL:HDL 3.1 Normal 1.0-5.0 [facility] Comment on above: Performed By: #### C BCA, CMP, 63427-4, 19938-9, TSHR, 43288-8 #### [facility] ([id number]) [address], [address] [place] [address] Triglyceride [Mass/Vol] 80 mg/dL Normal 27-150 [facility] Comment on above: Performed By: #### C BCA, CMP, 02968-8, 21544-0, TSHR, 84184-6 #### [facility] ([id number]) [address], [address] [place] [address] MAGNESIUMon 11-01-2023 Magnesium [Mass/Vol] 1.8 mg/dL Normal 1.8-2.6 [facility] Comment on above: Performed By: #### C LILLY, BERT, 83304-8, 62508-4, TSHR, 35921-8 #### [facility] ([id number]) [address] [place] [address] TSH WITH REFLEXon 11-01-2023 TSH 2.65 uIU/mL Normal 0.49-4.67 [facility] Comment on above: Performed By: #### C LILLY, BERT, 54797-4, , TSHR, 75156-4 #### [facility] ([id number]) [address] [place] [address] Vitamin D+Metabolites [Mass/ Vol]on 11-01-2023 VITAMIN D 25 HYD TOT 28.0 ng/mL Low 30-100 [facility] Comment on above: Result Comment: Vitamin D status 25 [place] Vitamin D Deficiency <20 ng/mL Insufficiency 20-29 ng/mL Sufficiency 30-100 ng/mL Toxicity >100 ng/mL NOTE: A pediatric reference range has not been established by the veneer cutter of this kit. The [place] [employer] recommends a Vitamin D level of = or >20ng/mL in infants and children. Performed By: #### C LILLY, BERT, 99834-9, 44220-4, TSHR, 56647-4 #### [facility] ([id number]) [address] [place] [address] Cytology Cervical or vaginal smear or scraping studyon 05-09-2023 [facility] CBC AUTO DIFFon 01-13-2022 BASO # 0.0 103/ul Normal 0.0-0.1 [facility] Comment on above: Performed By: #### C BC #### [facility] [address] [place] [address] Dr. Domingo Santos Basophils/100 WBC (Bld) 0.6 % Normal 0.2-2.0 [facility] Comment on above: Performed By: #### C BC #### [facility] [address] [place] [address] Dr. Domingo Santos EO # 0.2 103/ul Normal 0.0-0.7 [facility] Comment on above: Performed By: #### C BC #### [facility] [address] [place] [address] Dr. Domingo Santos Eosinophils/100 WBC (Bld) 2.7 % Normal 0.9-7.0 [facility] Comment on above: Performed By: #### C BC #### [facility] [address] [place] [address] Dr. Domingo Santos Erythrocyte distribution width (RBC) [Ratio] 12.2 % Normal 11.0-15.0 [facility] Comment on above: Performed By: #### C BC #### [facility] [address] [place] [address] Dr. Domingo Santos Hematocrit (Bld) [Volume fraction] 37.1 % Normal 36.0-48.0 [facility] Comment on above: Performed By: #### C BC #### [facility] [address] [place] [address] Dr. Domingo Santos Hemoglobin (Bld) [Mass/Vol] 12.7 g/dL Normal 12.0-16.0 [facility] Comment on above: Performed By: #### C BC #### [facility] [address] [place] [address] Dr. Domingo Santos IG # 0.02 10e3/ul Normal 0.00-0.03 [facility] Comment on above: Performed By: #### C BC #### [facility] [address] [place] [address] Dr. Domingo Santos IG % 0.3 % Normal 0.0-0.5 [facility] Comment on above: Performed By: #### C BC #### [facility] [address] [place] [address] Dr. Domingo Santos LYMPH # 2.1 103/ul Normal 1.2-3.8 [facility] Comment on above: Performed By: #### C BC #### [facility] [address] [place] [address] Dr. Domingo Santos Lymphocytes/100 WBC (Bld) 30.3 % Normal 20.5-60.0 [facility] Comment on above: Performed By: #### C BC #### [facility] [address] [place] [address] Dr. Domingo Santos MANUAL DIFF REQ NO Normal [facility] Comment on above: Performed By: #### C BC #### [facility] [address] [place] [address] Dr. Domingo Santos MCH (RBC) [Entitic mass] 30.7 pg Normal 26.7-34.0 [facility] Comment on above: Performed By: #### C BC #### [facility] [address] [place] [address] Dr. Domingo Santos MCHC (RBC) [Mass/Vol] 34.2 g/dL Normal 29.9-35.2 [facility] Comment on above: Performed By: #### C BC #### [facility] [address] [place] [address] Dr. Domingo Santos MCV (RBC) [Entitic vol] 89.6 fL Normal 81.0-99.0 [facility] Comment on above: Performed By: #### C BC #### [facility] [address] [place] [address] Dr. Domingo Santos MONO # 0.5 103/ul Normal 0.3-0.8 [facility] Comment on above: Performed By: #### C BC #### [facility] [address] [place] [address] Dr. Domingo Santos Monocytes/100 WBC (Bld) 7.1 % Normal 1.7-12.0 [facility] Comment on above: Performed By: #### C BC #### [facility] [address] [place] [address] Dr. Domingo Santos NEUT # 4.2 103/ul Normal 1.4-6.5 [facility] Comment on above: Performed By: #### C BC #### [facility] [address] [place] [address] Dr. Domingo Santos Neutrophils/100 WBC (Bld) 59.0 % Normal 43.0-75.0 [facility] Comment on above: Performed By: #### C BC #### [facility] [address] [place] [address] Dr. Domingo Sanots Platelet mean volume (Bld) [Entitic vol] 9.7 fL Normal 9.5-13.5 [facility] Comment on above: Performed By: #### C BC #### [facility] [address] [place] [address] Dr. Domingo Santos PLT 286 103/ul Normal 150-450 [facility] Comment on above: Performed By: #### C BC #### [facility] [address] [place] [address] Dr. Domingo Santos RBC 4.14 106/ul Critically low 4.20-5.40 [facility] Comment on above: Performed By: #### C BC #### [facility] [address] [place] [address] Dr. Domingo Santos WBC 7.1 103/ul Normal 4.0-11.0 [facility] Comment on above: Performed By: #### C BC #### [facility] [address] [place] [address] Dr. Domingo Santos PREG HCG QUALon 01-13-2022 , QUAL Negative Normal NEGATIVE [facility] Comment on above: Performed By: #### P REG #### [facility] [address] [place] [address] Dr. Domingo Santos Covid-19 PCR (CVDTB)on 12-14 SARS-CoV-2 (COVID-19) RNA KETAN+probe Ql (Unsp spec) Not detected Normal NOT DETECTED [facility] Comment on above: Result Comment: This test is not yet approved or cleared by the [place] FDA. When there are no FDA-approved or cleared tests available, and other criteria are met, FDA can make tests available under an emergency access mechanism called an Emergency Use Authorization (EUA). The EUA for this test is supported by the [employer] of Health and Human Service's (HHS's) declaration [...] consistent with SARS-CoV-2. Performed By: #### [facility] #### [facility] [address] [place] [address] Dr. Domingo Santos Vital Signs Date Time Vital Sign Value Performing Clinician Facility 12-10-2024 13:020400 Body weight 68.27 kg Dayana Middleton NP Work Phone: [facility] 10-22-2024 10:33-0400 Body height 152.4 cm [facility] [facility] 10-22-2024 10:33-0400 Body mass index (BMI) [Ratio] 29.29 kg/m2 [facility] [facility] 10-22-2024 10:33-0400 Body weight 68.04 kg [facility] [facility] 10-22-2024 10:33-0400 Diastolic blood pressure 78 mm[Hg] [facility] Work Phone[facility] 10-22-2024 10:33-0400 Heart rate 102 /min [facility] Work Phone: [facility] 10-22-2024 10:33-0400 SaO2% (BldA) [Mass fraction] 96 % Foluso Alamina [facility] Work Phone: [facility] 10-22-2024 10:33-0400 Systolic blood pressure 124 mm[Hg] Foluso Alamina [facility] Work Phone: [facility] 09-24-2024 09:11-0400 Body height 152.4 cm Foluso Alamina [facility] Work Phone: [facility] 09-24-2024 09:11-0400 Body mass index (BMI) [Ratio] 31.05 kg/m2 Foluso Alamina [facility] Work Phone: [facility] 09-24-2024 09:11-0400 Body weight 72.12 kg Foluso Alamina [facility] Work Phone: [facility] 09-24-2024 09:11-0400 Diastolic blood pressure 82 mm[Hg] Foluso Alamina [facility] Work Phone: [facility] 09-24-2024 09:11-0400 Heart rate 82 /min Foluso Alamina [facility] Work Phone: [facility] 09-24-2024 09:11-0400 SaO2% (BldA) [Mass fraction] 98 % Foluso Alamina [facility] Work Phone: [facility] 09-24-2024 09:11-0400 Systolic blood pressure 118 mm[Hg] Foluso Alamina [facility] Work Phone: [facility] 12-12-2023 15:53-0400 Body height 152.4 cm Foluso Alamina [facility] Work Phone: [facility] 12-12-2023 15:53-0400 Body mass index (BMI) [Ratio] 29.29 kg/m2 Foluso Alamina [facility] Work Phone: [facility] 12-12-2023 15:53-0400 Body weight 68.04 kg Foluso Alamina [facility] Work Phone: [facility] 12-12-2023 15:53-0400 Diastolic blood pressure 98 mm[Hg] Foluso Alamina [facility] Work Phone: [facility] 12-12-2023 15:53-0400 Heart rate 100 /min Foluso Alamina [facility] [employer] Work Phone: [facility] 12-12-2023 15:53-0400 Systolic blood pressure 130 mm[Hg] Foluso Alamina [employer] Work Phone: [facility] 10-31-2023 16:36-0400 Body height 152.4 cm Foluso Alamina [employer] Work Phone: [facility] 10-31-2023 16:36-0400 Body mass index (BMI) [Ratio] 30.08 kg/m2 Foluso [place]amina [employer] Work Phone: [facility] [facility] 10-31-2023 16:36-0400 Body weight 69.85 kg Foluso Alamina [employer] HE[employer]ACH-[employer] ENG[employer] Work Phone: [facility] 10-31-2023 16:36-0400 Diastolic blood pressure 94 mm[Hg] Foluso Alamina [employer]NESS HE[employer] COACH-[employer] ENGINE[employer] Work Phone: [facility] 10-31-2023 16:36-0400 Heart rate 84 /min Foluso Alamina WE[employer]NESS HE[employer] COACH-ELECT[employer]ICAL E[employer] ENGINEERS Work Phone: [facility] 10-31-2023 16:36-0400 Systolic blood pressure 110 mm[Hg] Foluso Alamina WE[employer] HEALTH COACH-ELECT[employer]ICAL [employer] ENGINE[employer] Work Phone: [facility] 06-20-2023 16:11-0500 Body height 152.4 cm Foluso Alamina WELLNESS HEALTH COACH-ELECT[employer]ICAL [employer] ENGINE[employer] [facility] 06-20-2023 16:11-0500 Body mass index (BMI) [Ratio] 27.3 kg/m2 Foluso Alamina WELLNESS HEALTH COACH-ELECT[employer]ICAL ELECTRON[employer] ENGINEERS [facility] 06-20-2023 16:11-0500 Body weight 63.41 kg Foluso Alamina WELLNESS HEALTH COACH-ELECT[employer] ENGINE[employer] [facility] 06-20-2023 16:11-0500 Diastolic blood pressure 80 mm[Hg] Foluso Alamina WE[employer]NESS HEALTH COACH-E[employer]ICAL [employer] ENG[employer] [facility] 06-20-2023 16:11-0500 Systolic blood pressure 124 mm[Hg] Foluso Alamina WELLNESS HEALTH COACH-ELECT[employer]ICAL [employer]LECTRON[employer] ENGINEERS [facility] 03-28-2023 09:25-0500 Body height 152.4 cm Nasreen Colunga Other [facility] Other 03-28-2023 09:25-0500 Body mass index (BMI) [Ratio] 27.53 kg/m2 Nasreen Colunga Other [facility] Other 03-28-2023 09:25-0500 Body temperature 99 [degF] Nasreen Colunga Other [facility] Other 03-28-2023 09:25-0500 Body weight 63.96 kg Nasreen Cristine Other [facility] Other 03-28-2023 09:25-0500 Diastolic blood pressure 52 mm[Hg] Nasreen Colunga Other [facility] Other 03-28-2023 09:25-0500 Respiratory rate 19 /min Nasreen Colunga Other [facility] Other 03-28-2023 09:25-0500 SaO2% (BldA) [Mass fraction] 98 % Nasreen Colunga Other [facility] Other 03-28-2023 09:25-0500 Systolic blood pressure 113 mm[Hg] Nasreen Colunga Other [facility] Other Encounters Encounter Date Encounter Type Care Provider Facility Start: 12-10-2024 End: 12-10-2024 Bamboo flowsheet Dayana Middleton CIO Work Phone: [facility] Start: 12-10-2024 End: 12-10-2024 Bamboo [employer] Dayana Middleton CIO Work Phone: [facility] Start: 12-10-2024 End: 12-10-2024 Patient encounter procedure Dayana Middleton CIO Work Phone: [facility] Start: 12-10-2024 End: 12-10-2024 Periodic preventive med est patient 40-64yrs Dayana Middleton CIO Work Phone: [facility] Comment on above: Well woman exam with routine gynecological exam; Encounter for screening mammogram for malignant neoplasm of breast Start: 10-22-2024 End: 10-22-2024 Clinical Support Tai Barbour APRN-ELECT[employer]ICAL ELECTRON[employer] ENGINEERS Work Phone: [facility] Comment on above: Frequent urination ( Primary Dx); Well adult exam; Class 1 obesity due to excess calories with serious comorbidity and body mass index (BMI) of 30.0 to 30.9 in adult Start: 10-22-2024 End: 10-22-2024 Patient encounter status Tai Barbour APRN-ELECT[employer]RON[employer] ENGINEERS [facility] Start: 09-24-2024 End: 09-24-2024 Patient encounter status Foluso Alamina WE[employer]NESS HE[employer] COACH-[employer] ENGINE[employer] Work Phone: [facility] Start: 09-24-2024 End: 09-24-2024 Periodic preventive med est patient 40-64yrs Foluso Alamina WE[employer]NESS 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 Comment on above: Well adult exam (Noelle erwin Dx); Encounter for screening for cardiovascular disorders; Class 1 obesity due to excess calories with serious comorbidity and body mass index (BMI) of 30.0 to 30.9 in adult Start: 05-26-2024 End: 05-27-2024 Refill Foluso Alamina WE[employer] 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 Comment on above: Primary hypertension Anxiety Start: 12-26-2023 End: 12-26-2023 Orders Only Foluso Alamina WE[employer]NESS 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 Comment on above: Primary hypertension (Primary Dx); Vitamin D deficiency; Yeast infection; Healthcare maintenance; Class 1 obesity due to excess calories with serious comorbidity and body mass index (BMI) of 30.0 to 30.9 in adult; Elevated fasting blood sugar Start: 12-12-2023 End: 12-12-2023 Patient encounter status Foluso Alamina WE[employer] HE[employer] COACH-[employer] Work Phone: [facility] Work Phone: Start: 12-11-2023 End: 12-11-2023 Telephone encounter Frank Mcfarland CMA [facility] Start: 11-28-2023 End: 11-28-2023 Refill Foluso Alamina WE[employer] HE[employer] COACH-[employer] ENGINE[employer] Work Phone: [facility] Start: 11-06-2023 End: 11-07-2023 Refill Foluso Alamina WE[employer] 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 Comment on above: Anxiety Start: 11-02-2023 End: 11-02-2023 Refill Brooklynn Sultana CMA 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 Comment on above: Primary hypertension (Primary Dx); Vitamin D deficiency; BMI 26.0-26.9,adult; Anxiety Start: 06-20-2023 End: 06-20-2023 Office outpatient visit 25 minutes Foluso Alamina WE[employer] 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-ELECT[employer]ICAL [employer] ENGINEERS Work Phone: [facility] [employer] Start: 05-09-2023 End: 05-09-2023 ambulatory KIMANI CANO Not Available Start: 03-28-2023 End: 03-28-2023 ambulatory Nasreen Colunga Other [facility] Other Start: 03-28-2023 Office outpatient ne w 10 minutes Nasreen Colunga [facility] Start: 01-13-2022 End: 01-13-[address] KIMANI CANO Facility:[facility] Start: 01-12-2022 Encounter for preprocedural laboratory examination DR KIMANI CANO [facility] Start: 01-11-2022 End: 01-12-[address] KIMANI CANO Facility:[facility] Start: 01-11-2022 End: 01-12-2022 Encounter for preprocedural laboratory examination DR KIMANI CANO Facility:[facility] Start: 01-10-[address] KIMANI CANO Facility :[facility] Start: 11-24-[address] KIMANI CANO Facility :[facility] Procedures Date Procedure Procedure Detail Performing Clinician Start: 10-22-2024 Urnls dip stick/tabl et rgnt non-auto w/o micrscp Foluso Alamina [employer] HE[employer] COACH-[employer] ENG[employer] Work Phone: Start: 09-24-2024 Adult depression scr eening assessment Foluso Alamina WE[employer]NESS HE[employer] COACH-E[employer] ENGINE[employer] Work Phone: Start: 12-25-2023 Mammography Dayana cox CIO Work Phone: Start: 12-12-2023 Hemoglobin glycosyla dean a1c Foluso Alamina [employer] HE[employer] COACH-ELECT[employer] ENGINEERS Work Phone: Start: 12-12-2023 Adult depression scr eening assessment Foluso Alamina WE[employer] HE[employer] COACH-ELECT[employer] ENGINE[employer] Work Phone: Start: 06-20-2023 Adult depression scr eening assessment Foluso Alamina WE[employer] HE[employer] COACH-E[employer] E[employer]RON[employer] ENGINE[employer] Work Phone: Start: 05-09-2023 Microscopic observat ion [Identifier] in Cervix by Cyto stain Dayana Middleton CIO Work Phone: Start: 05-09-2023 Cytp cerv/vag auto t hin layer prep mnl screen Kimani Cano DO Work Phone: Plan of Treatment Date Care Activity Detail Author Start: 05-09-2026 Screening for malign ant neoplasm of cervix [facility] Start: 09-24-2025 Adult BMI Follow Up Plan Adult BMI Follow Up Plan [facility] Start: 09-24-2025 Adult BMI Screening Adult BMI Screen ing [facility] Start: 09-24-2025 Depression Screening Depression Scre [facility] Start: 09-24-2025 Tobacco Screening Tobacco Screening [facility] Start: 01-12-2025 Influenza vaccination [facility] Start: 12-24-2024 Screening for malign ant neoplasm of breast Mammogram [facility] Start: 12-11-2024 Adult BMI Follow Up Plan Adult BMI Follow Up Plan [facility] Start: 12-11-2024 Adult BMI Screening Adult BMI Screen ing [facility] Start: 12-11-2024 Depression Screening Depression Scre [facility] Start: 12-11-2024 Tobacco Screening Tobacco Screening [facility] Start: 12-10-2024 End: 02-10-2026 MG Breast - bilateral Screening Bilateral screening mammogram Imaging Routine Encounter for screening mammogram for malignant neoplasm of breast Expected: 12/10/2024 (Approximate), Expires: 02/10/2026 [facility] Work Phone: Comment on above: Expected: 12/10/2024 (Approximate), Expires: 02/10/2026 Start: 12-10-2024 End: 12-10-2024 Patient encounter procedure 12/10/2024 1:00 PM EDT Office Visit [facility] [address] [place] [address] Dayana Middleton, CIO [address] [place] [address] Arrived [facility] Comment on above: Arrived Start: 10-30-2024 Adult BMI Follow Up Plan Adult BMI Follow Up Plan [facility] Start: 10-30-2024 Adult BMI Screening Adult BMI Screen ing [facility] Start: 10-30-2024 Tobacco Screening Tobacco Screening [facility] Start: 10-22-2024 End: 10-22-2024 Clinical Support 10/22/2024 10:45 AM EDT Clinical Support [facility] [address] [place] [id number] Tai Barbour, [employer] HE[employer] COACH-ELECT[employer]ICAL ELECTRON[employer] ENGINEERS [address] [place] [address] [facility] Start: 08-14-2024 DTaP,Tdap and Td Vaccines (6 - Td or Tdap) DTaP,Tdap and Td Vaccines (6 - Td or Tdap) [facility] Start: 06-20-2024 Adult BMI Follow Up Plan Adult BMI Follow Up Plan [facility] Start: 06-20-2024 Adult BMI Screening Adult BMI Screen ing [facility] Start: 06-20-2024 Depression Screening Depression Scre ening [facility] Start: 06-20-2024 Tobacco Screening Tobacco Screening [facility] Start: 01-13-2024 COVID-19 Vaccine ( season) COVID-19 Vaccine () [facility] Start: 01-13-2024 Influenza vaccination Influenza Vacc ine [facility] Start: 12-26-2023 End: 12-25-2024 NM Guidance limited for localization of tumor NM Molecular breast imaging localization limited area Imaging Routine Dense breast tissue Expected: 12/26/2023, Expires: 12/25/2024 [facility] Work Phone: Comment on above: Expected: 12/26/2023 , Expires: 12/25/2024 Start: 12-25-2023 End: 12-25-2023 Patient encounter procedure 12/25/2023 3:30 PM EDT Appointment [facility] - [facility]ound [address] [facility] [place] [address] [facility] Start: 12-25-2023 Subsequent hospital visit by physician 12/25/2023 3:00 PM EDT Hospital Encounter [facility] - Mammogram DEXA [address] [place] [address] [facility] - Mammogram DEXA Start: 12-12-2023 End: 12-12-2023 Patient encounter procedure 12/12/2023 4:15 PM EDT Office Visit [facility] [address] [place] [address] Tai Barbour, WE[employer] HE[employer] COACH-E[employer] ENGINEERS [address] [place] [id number] [facility] Start: 12-11-2023 End: 12-10-2024 MG Breast Diagnostic Mammography diagnostic bilateral with CAD Imaging Routine Cyst of right breast Expected: 12/11/2023, Expires: 12/10/2024 [facility] Work Phone: Comment on above: Expected: 12/11/2023 , Expires: 12/10/2024 Start: 11-26-2023 End: 11-26-2023 Patient encounter procedure 11/26/2023 4:00 PM EDT Office Visit [facility] [address] [place] [address] Tai Barbour, [employer] HE[employer] COACH-[employer] ENGINE[employer] [address] [place] [phone] [facility] Start: 11-02-2023 End: 11-01-2024 DBT Breast [...] breast, unspecified quadrant Expected: 11/02/2023, Expires: 11/01/2024 [facility] [employer] Comment on above: Expected: 11/02/2023 , Expires: 11/01/2024 Start: 01-12-2023 COVID-19 Vaccine () COVID-19 Vaccine () [facility] Start: 2013 Screening for malign ant neoplasm of cervix HPV/Cotest [facility] Start: 01-09-2004 Screening for malign ant neoplasm of cervix [facility] Bacteria identified in Urine by Culture Urine culture (clean catch) Microbiology Routine Frequent urination 10/22/2024 10:54 AM EDT [employer] Work Phone: End: 06-20-2024 CBC W Auto Differential panel - Blood CBC auto differential Lab Routine Healthcare maintenance 1 Occurrences starting 06/20/2023 until 06/20/2024 [facility] Comment on above: 1 Occurrences starti ng 06/20/2023 until 06/20/2024 End: 09-24-2025 CBC W Auto Differential panel - Blood CBC auto differential Lab Routine Well adult exam 1 Occurrences starting 09/24/2024 until 09/24/2025 [employer] Work Phone: Comment on above: 1 Occurrences starti ng 09/24/2024 until 09/24/2025 End: 06-20-2024 Comprehensive metabolic 2000 panel - Serum or Plasma Comprehensive metabolic panel Lab Routine Healthcare maintenance 1 Occurrences starting 06/20/2023 until 06/20/2024 [facility] Comment on above: 1 Occurrences starti ng 06/20/2023 until 06/20/2024 End: 09-24-2025 Comprehensive metabolic 2000 panel - Serum or Plasma Comprehensive metabolic panel Lab Routine Well adult exam 1 Occurrences starting 09/24/2024 until 09/24/2025 [facility] Comment on above: 1 Occurrences starti ng 09/24/2024 until 09/24/2025 End: 06-20-2024 Lipid 1996 panel - Serum or Plasma Lipid profile Lab Routine Healthcare maintenance 1 Occurrences starting 06/20/2023 until 06/20/2024 [facility] Comment on above: 1 Occurrences starti ng 06/20/2023 until 06/20/2024 End: 09-24-2025 Lipid 1996 panel - Serum or Plasma Lipid profile Lab Routine Well adult exam Encounter for screening for cardiovascular disorders 1 Occurrences starting 09/24/2024 until 09/24/2025 [facility] Comment on above: 1 Occurrences starti ng 09/24/2024 until 09/24/2025 End: 06-20-2024 Magnesium [Mass/volume] in Serum or Plasma Magnesium Lab Routine Healthcare maintenance 1 Occurrences starting 06/20/2023 until 06/20/2024 [facility] [employer] Comment on above: 1 Occurrences starti ng 06/20/2023 until 06/20/2024 End: 09-24-2025 Magnesium [Mass/volume] in Serum or Plasma Magnesium Lab Routine Well adult exam 1 Occurrences starting 09/24/2024 until 09/24/2025 [facility] Comment on above: 1 Occurrences starti ng 09/24/2024 until 09/24/2025 THIN PREP TIS PAP AN D HR HPV DNA THIN PREP TIS PAP AND HR HPV DNA Pathology and Cytology Routine Well woman exam with routine gynecological exam Ordered: 12/10/2024 [facility] Comment on above: Ordered: 12/10/2024 End: 06-20-2024 TSH with Reflex TSH with Reflex Lab Routine Healthcare maintenance 1 Occurrences starting 06/20/2023 until 06/20/2024 [facility] [employer] Comment on above: 1 Occurrences starti ng 06/20/2023 until 06/20/2024 End: 09-24-2025 TSH with Reflex TSH with Reflex Lab Routine Well adult exam 1 Occurrences starting 09/24/2024 until 09/24/2025 [facility] [employer] Comment on above: 1 Occurrences starti ng 09/24/2024 until 09/24/2025 End: 06-20-2024 Vitamin D 25 hydroxy Vitamin D 25 hydroxy Lab Routine Vitamin D deficiency 1 Occurrences starting 06/20/2023 until 06/20/2024 [facility]: Comment on above: 1 Occurrences starti ng 06/20/2023 until 06/20/2024 Immunizations Immunization Date Immunization Notes Care Provider Nina johnson 03-11-2024 influenza virus vaccine, unspecified formulation Foluso Alamina [employer] HE[employer]ACH-[employer] ENG[employer] Work Phone: [facility] [employer] 03-08-2023 influenza virus vaccine, unspecified formulation Foluso Alamina [employer] COACH-ELECT[employer]ICAL ELECT[employer] ENGINEERS Work Phone: [facility] 06-25-2020 COVID-19, mRNA, LNP- S, PF, 100mcg/0.5mL Dose Foluso Alamina [employer]ACH-E[employer] ENG[employer] Work Phone: [facility] 05-19-2020 COVID-19, mRNA, LNP- S, PF, 100mcg/0.5mL Dose Foluso Alamina [employer] COACH-ELECTRICAL ELECTRONICS ENGINEERS Work Phone: [facility] Payers Date Payer Category Payer Blue Cross Blue Shield [id number] 2023 Blue [employer] Blue [employer] Managed Care - Other [id number] 2023 Unknown [id number] 2017 Unknown [id number] 1983 Unknown [id number] 1983 Unknown [id number] 1983 Unknown [id number] 1983 Unknown [id number] 1983 Unknown [id number] 1983 Unknown [id number] 1983 Unknown [id number] 1983 Unknown [id number] 1983 Unknown [id number] 1959 Self-pay [id number] 1961 Unknown [id number] Social History Date Type Detail Facility Unknown if ever smoked [facility] [employer] Other Start: 05-26-2020 End: 12-12-2023 Sex Assigned At [facility] [employer] Other Start: 06-14-2022 Tobacco smoking status COIS Ex-smoker [facility] End: 02-11-2013 History of tobacco use Current smoker [facility] End: 02-11-2013 History of tobacco use Cigarette Smoker [facility] Start: 06-14-2022 Tobacco use and exposure Smokeless tobacco non-user [facility] Start: 12-25-2023 End: 09-24-2024 Alcoholic beverage intake Ex-drinker (finding) [facility] Start: 05-26-2020 End: 12-12-2023 History of Social function [facility] How hard is it for y ou to pay for the very basics like food, housing, medical care, and heating Not very hard [facility] Adolescent depressio n screening assessment 0 [facility] Start: 1985 [facility] Start: 12-15-2014 Sex Female (finding) [facility] [employer] [facility] Clinical [...] nursing note reviewed. Exam conducted with a margin analyst present. Vitals: There is no height or [...] Dayana Middleton NP documented in this encounter [facility] 10-22-2024 History of Presen t illness Narrative Patient presented into the office for a weight check, patient weighed in at 150.0 lbs. Patient lost 9 lbs. Patient tolerated well. Patient also stated that she is having UTI symptoms being, Urgency of urination, and discomfort of urination. Patient left Urine sample and it was dipped for results. documented in this encounter [facility] 09-24-2024 History of Presen t illness Narrative [...] patient during this office visit. Most recent splunk consultant notes reviewed during this office visit. Most recent hospital records reviewed during this office visit. Side effects of prescribed medications reviewed with the patient. Risk and benefits of sacp-[id number] medications,supplements and vitamins discussed with patient. All the pertinent questions were answered. Patient noted to have elevated BMI and the following intervention(s) were applied: encouragement to exercise and prescribed diet education. TRIPP Silvestre 09/24/24 0941 documented in this encounter [facility] 05-26-2024 Miscellaneous Notes Formattin g of this note might be different from the original. Pt last seen 12/12/23 Please advise documented in this encounter [facility] 05-26-2024 Miscellaneous Notes Formattin g of this note might be different from the original. Pt last seen 12/12/23 Please advise documented in this encounter [facility] 05-26-2024 Telephone encount er Note Pt last seen 12/12/23 Please advise [facility] 05-26-2024 Telephone encount er Note Pt last seen 12/12/23 Please advise [facility] 12-12-2023 History of Presen t illness Narrative [...] no history of angina, kidney disease or CAD/MO. Active Problems Patient Active Problem List Diagnosis [...] patient during this office visit. Most recent splunk consultant notes reviewed during this office visit. Most recent hospital records reviewed during this office visit. Side effects of prescribed medications reviewed with the patient. Risk and benefits of pqab-vuz-[id number] medications,supplements and vitamins discussed with patient. All [...] Silvestre 12/12/23 1627 documented in this encounter [facility] 12-11-2023 Miscellaneous Notes Formattin g of this note might be different from the original. Nasim from [facility] scheduling called into office stating that they [...] order was placed. documented in this encounter [facility] 12-11-2023 Telephone encount er Note Nasim from [facility] scheduling called into office stating that they are needing an order placed for patient mammogram. Nasim would like us to call him back once order has been placed. Patient is coming into into office tomorrow. Please Advise [facility] 12-11-2023 Telephone encount er Note The order was placed on 11/02/2023, is there a different order needed? [facility] 12-11-2023 Telephone encount er Note Diagnostic bilateral mammogram is needed. Please advise. [facility] 12-11-2023 Telephone encount er Note Ordered [facility] 12-11-2023 Telephone encount er Note Left detailed message on Nasim's secure line that order was placed. [facility] 11-06-2023 Miscellaneous Notes From: Isaiah Smith To: Office of TRIPP Silvestre Sent: 11/06/2023 10:13 AM EDT Subject: Medication Renewal Request Refills have been requested for the following medications: Other - Phentermine Preferred pharmacy: [facility] [place] [address] Delivery method: Pickup Medication renewals requested in this message routed separately: buPROPion (W ELLBUTRIN) 75 mg tablet [[place] [place], [employer]] Pt last seen 10/31/23 Please advise documented in this encounter [facility] 11-06-2023 Miscellaneous Notes Formattin g of this note might be different from the original. Last visit: 10/31/23 Please advise. documented in this encounter [facility] 11-06-2023 Telephone encount er Note From: Rama Smith To: Office of Youngus[place]bie Barbour [employer] [employer] Sent: 11/06/2023 10:13 AM EDT Subject: Medication Renewal Request Refills have been requested for the following medications: Other - Phentermine Preferred pharmacy: [facility] [address] [place] [address] Delivery method: Pickup Medication renewals requested in this message routed separately: buPROPion (W ELLBUTRIN) 75 mg tablet [[employer], [employer]] [facility] 11-06-2023 Telephone encount er Note Pt last seen 10/31/23 Please advise [facility] 11-06-2023 Telephone encount er Note Last visit: 10/31/23 Please advise. [facility] 11-02-2023 Miscellaneous Notes Formattin g of this note might be different from the original. Patient requesting refill of wellbutrin, send to [facility] in [place]. Patient is also requesting mammogram, she needs it with the ultrasound due to the fibroid they found in the past in her right breast. Addended by: TAI BARBOUR on: 11/02/2023 04:52 PM Modules accepted: Orders documented in this encounter [facility] 11-02-2023 Note Addended by: TAI BARBOUR on: 11/02/2023 04:52 PM Modules accepted: Orders [facility] 11-02-2023 Telephone encount er Note Patient requesting refill of wellbutrin, send to [facility] in [place]. Patient is also requesting mammogram, she needs it with the ultrasound due to the fibroid they found in the past in her right breast. [facility] 10-31-2023 History of Presen t illness Narrative [...] with the patient. Risk and benefits of qyzc-rox-tijkyar medications,supplements and vitamins discussed with patient. All [...] Silvestre 10/31/23 1721 documented in this encounter [facility] 06-20-2023 History of Presen t illness Narrative [...] with the patient. Risk and benefits of dikg-iuk-jcgempo medications,supplements and vitamins discussed with patient. All [...] Silvestre 06/20/23 1646 documented in this encounter [facility] 06-20-2023 Miscellaneous Notes Addended by: TAI BARBOUR on: 06/20/2023 05:03 PM Modules accepted: Orders documented in this encounter [facility] 06-20-2023 Note Addended by: TAI BARBOUR on: 06/20/2023 05:03 PM Modules accepted: Orders [facility] 03-28-2023 Evaluation note Encounter Date Diagnosis Assessment [...] as needed for aches pains or fevers [facility] Other 09-02-2022 NoteOPERATIVE NOTE OPERATION DATE: 01/13/2022 PROCEDURE: Patricia endometrial ablation with hysteroscopy. PREOPERATIVE DIAGNOSIS: Menorrhagia. POSTOPERATIVE DIAGNOSIS: Menorrhagia. ANESTHESIA: General. SURGEON: Kimani Rachael, D.O. ART DISPLAY MAKER: None. SPECIMEN: None. FINDINGS: Normal appearing cavity. [...] Patient taken to recovery in stable condition[facility] Primary hypertension Unspecified essential hypertension [facility] Diagnosis Anxiety Anxiety state, unspecified documented in this encounter [facility]* Diagnosis Healthcare maintenance- Primary BMI 27.0-27.9,adult Primary hypertension Unspecified essential hypertension Weight loss due to medication Vitamin D deficiency documented in this encounter [facility]* Diagnosis Primary hypertension- Primary Unspecified essential hypertension Vitamin D deficiency BMI 26.0-26.9,adult Anxiety Anxiety state, unspecified documented in this encounter [facility]* Diagnosis Encounter for screening mammogram for malignant neoplasm of breast- Primary Anxiety Anxiety state, unspecified Mass of right breast, unspecified quadrant documented in this encounter [facility]* Diagnosis Anxiety Anxiety state, unspecified documented in this encounter [facility]* Diagnosis Cyst of right breast- Primary documented in this encounter [facility]* Diagnosis Primary hypertension- Primary Unspecified essential hypertension Vitamin D deficiency Yeast infection Healthcare maintenance Class 1 obesity due to excess calories with serious comorbidity and body mass index (BMI) of 30.0 to 30.9 in adult Elevated fasting blood sugar Impaired fasting glucose [facility] Diagnosis Dense breast tissue- Primary [facility] Diagnosis Well adult exam- Primary Routine general medical examination at a health care facility Encounter for screening for cardiovascular disorders Class 1 obesity due to excess calories with serious comorbidity and body mass index (BMI) of 30.0 to 30.9 in adult [facility] Diagnosis Frequent urination- Primary Urinary frequency Well adult exam Routine general medical examination at a health care facility Class 1 obesity due to excess calories with serious comorbidity and body mass index (BMI) of 30.0 to 30.9 in adult [facility] Diagnosis Well woman exam with routine gynecological exam Routine gynecological examination Encounter for screening mammogram for malignant neoplasm of breast [facility] - Reported* Type Description Date Medical History asthma Medical History endometriosis Surgical History laparoscopy Surgical History tubal ligation [facility] Other InstructionsNot on filedocumented in this encounter [...] NM Molecular breast imaging localization limited area Tai Barbour APRN-CNP [address] [place] [address] Referral ID Status Reason Start Date Expiration Date V isits Requested Visits Authorized [id number] Pending Review 12/26/2023 12/25/2024 5 5 Specialty Diagnoses / Procedures Referred By Phylicia cordero Referred To Contact Diagnoses Class 1 obesity due to excess calories with serious comorbidity and body mass index (BMI) of 30.0 to 30.9 in adult Tai Barbour APRN-CNP [address] [place] [address] Referral ID Status Reason Start Date Expiration Date Visits Re quested Visits Authorized [id number] Closed 1 1 Additional Source Comments INFORMATION SOURCE (unrecogn ized section and content) DATE CREATED AUTHOR 01/19/2022 [facility] DATE CREATED AUTHOR AUTHOR'S ORGANIZ ATION 05/11/2023 [facility] EPIC DATE CREATED AUTHOR AUTHOR'S ORGANIZ ATION 12/27/2023 [facility] REASON FOR VISIT (unrecogniz ed section [...] Care Teams (unrecognized sec tion and content) [employer] Relationship Specialty Start Date End Date Tai Barbour APRN-CNP [address] [place] [address] PCP - General Family Medicine 09/20/22 [employer] Relationship Specialty Start Date End Date Tai Barbour APRN-CNP [address] [place] [address] PCP - General Family Medicine 09/20/22 [employer] Relationship Specialty Start Date End Date Alamina, Fol[place], [employer] [address] [place] [address] PCP - General Family Medicine 09/20/22 [employer] Relationship Specialty Start Date End Date Alamina, Foluso, [employer] [address] [place] [address] PCP - General Family Medicine 09/20/22 [employer] Mill Grinder Relationship Specialty Start Date End Date Alamina, Foluso, [employer] [address] [place] [address] PCP - General Family Medicine 09/20/22 [employer] Grinder Relationship Specialty Start Date End Date Alamina, Foluso, [employer] [address] [place] [id number] PCP - General Family Medicine 09/20/22 [employer] Mill Grinder Relationship Specialty Start Date End Date Alamina, Foluso, [employer] [address] [place] [address] PCP - General Family Medicine 09/20/22 [employer] Mill Grinder Relationship Specialty Start Date End Date Alamina, Foluso, [employer] [address] [place] [address] PCP - General Family Medicine 09/20/22 Sand Mill Grinder Relationship Specialty Start Date End Date Alamina, Foluso, [employer] [address] [place] [address] PCP - General Family Medicine 09/20/22 [employer] Grinder Relationship Specialty Start Date End Date Tai Barbour, [employer] [address] [place] [address] PCP - General Family Medicine 09/20/22 Sand Mill Grinder Relationship Specialty Start Date End Date Tai Barbour, [employer] [address] [place] [address] PCP - General Family Medicine 09/20/22 [employer] Grinder Relationship Specialty Start Date End Date Tai Barbour, [employer] [address] [place] [address] PCP - General Family Medicine 09/20/22 [employer] Mill Grinder Relationship Specialty Start Date End Date Tai Barbour, [employer] [address] [place] [address] PCP - General Family Medicine 09/20/22 Sand Mill Grinder Relationship Specialty Start Date End Date Tai Barbour MD PCP - General Family Medicine 05/09/23 Sand Mill Grinder Relationship Specialty Start Date End Date Tai [...] BE BASED ON THE PRIMARY CLINICAL RECORDS. [facility] [employer] [facility]. provides no warranty or guarantee of the accuracy or completeness of information in this document.
[2024-12-15 11:08] LABS: Age Gdln ACOG Testing Note (.); IGP, Aptima HPV, rfx 16/18,45 Note (.)
== END 2024-12-10 07:51 | disposition home or self-care (01) ==
LOC: LAB 07:50
PROVIDERS: Visit Provider Nurse Practitioner Family
DX: Z01.419 Encounter for gynecological examination (general) (routine) without abnormal findings (principal)
CPT/HCPCS: 87624; 88175